=== PATIENT | female | born 1955 | race Caucasian/White ===

== ENCOUNTER 2016-02-24 | Outpatient (CLI) | payer MEDICARE, MEDICAID | END 2016-02-24 08:57 | disposition home or self-care (01) ==

== ENCOUNTER 2016-02-24 08:13 | Outpatient (CLI) | payer MEDICARE, MEDICAID | END 2016-02-24 08:14 | disposition home or self-care (01) | DX: E11.9 Type 2 diabetes mellitus without complications (principal) ==

== ENCOUNTER 2016-02-24 08:15 | Outpatient (CLI) | payer MEDICARE, MEDICAID | END 2016-02-24 08:16 | disposition home or self-care (01) | DX: E89.0 Postprocedural hypothyroidism (principal) ==

== ENCOUNTER 2016-02-24 10:21 | Outpatient (CLI) | payer MEDICARE, MEDICAID | END 2016-02-24 10:22 | disposition home or self-care (01) | DX: R05 Cough (principal); E89.0 Postprocedural hypothyroidism; E11.9 Type 2 diabetes mellitus without complications; F33.2 Major depressive disorder, recurrent severe without psychotic features; F43.10 Post-traumatic stress disorder, unspecified; F22 Delusional disorders ==

== ENCOUNTER 2016-03-02 08:11 | Outpatient (CLI) | payer MEDICARE, MEDICAID ==
[2016-03-02] MEDS ORDERED: IOPAMIDOL-300 50 ML VIAL PO ONE (08:49)
== END 2016-03-02 08:12 | disposition home or self-care (01) ==
DX: K52.9 Noninfective gastroenteritis and colitis, unspecified (principal)
CPT/HCPCS: 74176; Q9967

== ENCOUNTER 2016-04-16 01:24 | Emergency (ER) | payer MEDICARE, MEDICAID ==
[2016-04-16] MEDS ORDERED: KETOROLAC 60 MG/2 ML VIAL IM STA (01:31)
[2016-04-16] MEDS ORDERED: KETOROLAC 60 MG/2 ML VIAL ONE (01:45)
== END 2016-04-16 02:35 | disposition home or self-care (01) ==
DX: M25.511 Pain in right shoulder (principal); W19.XXXA Unspecified fall, initial encounter; X50.0XXA Overexertion from strenuous movement or load, initial encounter; I10 Essential (primary) hypertension; E78.00 Pure hypercholesterolemia, unspecified; J45.909 Unspecified asthma, uncomplicated; E11.9 Type 2 diabetes mellitus without complications; M19.90 Unspecified osteoarthritis, unspecified site

== ENCOUNTER 2016-05-06 10:31 | Outpatient (CLI) | payer MEDICARE, MEDICAID | END 2016-05-06 10:32 | disposition home or self-care (01) | DX: M25.511 Pain in right shoulder (principal); Z53.9 Procedure and treatment not carried out, unspecified reason ==

== ENCOUNTER 2016-05-27 10:24 | Outpatient (CLI) | payer MEDICARE, MEDICAID | END 2016-05-27 10:25 | disposition home or self-care (01) | DX: F33.2 Major depressive disorder, recurrent severe without psychotic features (principal); F43.10 Post-traumatic stress disorder, unspecified; F22 Delusional disorders ==

== ENCOUNTER 2016-05-30 13:11 | Outpatient (CLI) | payer MEDICARE, MEDICAID | END 2016-05-30 13:12 | disposition home or self-care (01) | DX: E11.9 Type 2 diabetes mellitus without complications (principal) ==

== ENCOUNTER 2016-07-11 10:06 | Outpatient (CLI) | payer MEDICARE, MEDICAID ==
--- NOTE | 2016-07-13 12:43 | Mammography Report ---
DIGITAL SCREENING MAMMOGRAM: 07/11/2016 CLINICAL INDICATION: A 60-year-old for screening. COMPARISON: 01/2014, 12/2012, 08/2011, 08/2010, 06/2008. TECHNIQUE: Routine CC and MLO projections were obtained of the breasts as well as bilateral laterall y exaggerated craniocaudal views. FINDINGS: Parenchymal tissue within the breasts is predominantly fatty replaced. There are no domina nt masses, suspicious microcalcifications, or secondary signs of malignancy. In comparison to the pre vious studies, there are no significant changes. IMPRESSION: NO MAMMOGRAPHIC EVIDENCE OF MALIGNANCY. NO SIGNIFICANT INTERVAL CHANGES. RECOMMENDATION: Screening mammography is recommended annually. BI-ADS category 1 - negative. STANDARD QUALIFYING STATEMENTS 1. This examination was reviewed with the aid of Computed-Aided Detection (CAD). 2. A negative or benign imaging report should not delay biopsy if clinically suspicious findings are present. Consider surgical consultation if warranted. More than 5% of cancers are not identified by i maging. 3. Dense breasts may obscure an underlying neoplasm. JOB #: [id number] EXT JOB #:[id number]
== END 2016-07-11 10:07 | disposition home or self-care (01) ==
LOC: DI.N 10:06
PROVIDERS: ATTEND Family Medicine
DX: Z12.31 Encounter for screening mammogram for malignant neoplasm of breast (principal)
CPT/HCPCS: 77067

== ENCOUNTER 2016-07-15 10:00 | Outpatient (CLI) | payer MEDICARE, MEDICAID | END 2016-07-15 10:15 | disposition home or self-care (01) | LOC: RT.N 10:00 | PROVIDERS: ATTEND Family Medicine | DX: R94.31 Abnormal electrocardiogram [ECG] [EKG] (principal) | CPT/HCPCS: 93005 ==

== ENCOUNTER 2016-08-29 10:35 | Outpatient (CLI) | payer MEDICARE, MEDICAID ==
[2016-08-29 13:41] LABS: HEMOGLOBIN A1C 0.59 g/dL
[2016-08-29 13:47] LABS: ALBUMIN/GLOBULIN RATIO 1.2 (1.0-2.2); BILIRUBIN,TOTAL 0.3 mg/dL (0.2-1.0); BUN - BLOOD UREA NITROGEN 15 mg/dL (6-20); CALCIUM 9.1 mg/dL (8.5-10.3); CARBON DIOXIDE - CO2 24 mmol/L (21-32); CHLORIDE 108 mmol/L (101-111); CHOLESTEROL 194 mg/dL; GFR - MDRD 57 (>89); GLUCOSE 135 mg/dL (70-100); HDL CHOLESTEROL 49 mg/dL; LDL/HDL RATIO 2.1 (<4.4); POTASSIUM 3.4 mmol/L (3.5-5.0); SODIUM 139 mmol/L (135-145); TOTAL PROTEIN 7.2 g/dL (6.7-8.2); TRIGLYCERIDES 199 mg/dL; VLDL CHOLESTEROL 40 mg/dL
== END 2016-08-29 10:36 | disposition home or self-care (01) ==
LOC: LAB.N 10:35
PROVIDERS: ATTEND Family Medicine
DX: E78.5 Hyperlipidemia, unspecified (principal); E11.9 Type 2 diabetes mellitus without complications
CPT/HCPCS: 36415; 80053; 80061; 83036

== ENCOUNTER 2016-09-16 10:31 | Outpatient (CLI) | payer MEDICARE, MEDICAID ==
--- NOTE | 2016-09-16 12:40 | XRAY Report ---
THREE VIEW LEFT SHOULDER: 09/16/2016 CLINICAL INDICATION: Pain. FINDINGS: Internal and external rotational views and a scapular Y view of the left shoulder demonstr ate no evidence of acute fracture or dislocation. The joint spaces are preserved. No radiopaque forei gn body is seen in the soft tissues. IMPRESSION: NORMAL LEFT SHOULDER. JOB #: [id number] EXT JOB #:[id number]
== END 2016-09-16 10:32 | disposition home or self-care (01) ==
LOC: DI.N 10:31
PROVIDERS: ATTEND Family Medicine
DX: M25.512 Pain in left shoulder (principal)

== ENCOUNTER 2016-12-21 10:16 | Outpatient (CLI) | payer MEDICARE, MEDICAID ==
[2016-12-21 13:37] LABS: CALCIUM 8.9 mg/dL (8.5-10.3); CREATININE 0.9 mg/dL (0.4-1.0); POTASSIUM 3.5 mmol/L (3.5-5.0)
[2016-12-21 14:11] LABS: HEMOGLOBIN A1C 0.66 g/dL
== END 2016-12-21 10:17 | disposition home or self-care (01) ==
LOC: LAB.N 10:16
PROVIDERS: ATTEND Family Medicine
DX: E11.9 Type 2 diabetes mellitus without complications (principal)
CPT/HCPCS: 36415; 80048; 83036

== ENCOUNTER 2017-03-12 10:21 | Emergency (ER) | payer MEDICARE, OTHER, MEDICAID ==
--- NOTE | 2017-03-12 11:36 | ED Physician Documentation ---
PD HPI UPPER EXT INJURY - Stated complaint Stated Complaint: R ARM PX - Chief complaint Chief Complaint: Ext Problem - History obtained from History obtained from: Patient - History of Present Illness Location: Right, Shoulder Type of injury: Twist Where injury occurred: Home Timing - onset: Last night Timing - duration: Hours Timing - details: Abrupt onset, Still present Improved by: Rest, Immobilization Worsened by: Moving, Palpating Associated symptoms: No: Weakness, Numbness, Tingling, Swelling Contributing factors: Prior ortho surgery Similar symptoms before: Has not had sx before Recently seen: Surgery - Additonal information Additional information: 61-year-old female who had surgery on her right shoulder in January of this year was recovering range of motion in her shoulder and had good range of motion. 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 She has not been able to get comfortable even after taking Percocet. She has severe pain with any movement of her arm and is back into her sling. 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, Tubal ligation HEENT: Tonsil/Adenoidectomy - Present Medications Home Medications: Ambulatory Orders Medication Instructions Recorded Confirmed Levothyroxine Sodium 112 mcg PO DAILY 06/06/12 03/12/17 Multivitamin [Multiple Vitamins] 1 each PO DAILY PRN 06/06/12 03/12/17 Topiramate [Topiramate] 150 mg PO BID 06/06/12 03/12/17 Fluticasone/Salmeterol 100/50 60 puffs INH DAILY 02/23/13 03/12/17 [Advair 100 Mcg/50 Mcg] Omeprazole [PriLOSEC] 40 mg PO DAILY 02/25/13 03/12/17 Oxycodone HCl/Acetaminophen 1 each PO Q4H PRN #20 tablet 11/14/13 03/12/17 [Percocet 10-325 mg Tablet] Ketorolac [Toradol] 10 mg PO PRN PRN 05/04/15 03/12/17 Mirabegron [Myrbetriq] 2 tab PO DAILY 05/04/15 03/12/17 Albuterol Sulf [Ventolin Hfa 1 - 2 puffs INH Q4HR PRN 04/16/16 03/12/17 Inhaler] Montelukast [Singulair] 10 mg PO QPM 04/16/16 03/12/17 Atorvastatin [Lipitor] 20 mg PO DAILY 03/12/17 03/12/17 Quetiapine Fumarate [Seroquel] 1 tab PO DAILY 03/12/17 03/12/17 - Allergies Allergies/Adverse Reactions: Allergies Allergy/AdvReac Type Severity Reaction Status Date / Time strawberry [[place]] Allergy Severe Rash Verified 03/12/17 10:39 clindamycin Allergy Intermediate Emesis Verified 03/12/17 10:28 sulfamethoxazole Allergy Mild Rash Verified 03/12/17 10:28 [From Septra] trimethoprim [From Septra] Allergy Mild Rash Verified 03/12/17 10:28 adhesive tape Allergy Rash Verified 03/12/17 10:28 butorphanol tartrate * Allergy Hives Verified 03/12/17 10:28 [From Stadol] codeine Allergy Hives Verified 03/12/17 10:28 doxycycline Allergy Hives Verified 03/12/17 10:28 erythromycin lactobionate * Allergy Hives Verified 03/12/17 10:28 [From Erythrocin] hydromorphone HCl * Allergy Hives Verified 03/12/17 10:28 [From Dilaudid] meperidine HCl * Allergy Hives Verified 03/12/17 10:28 [From Demerol] morphine Allergy Headache Verified 03/12/17 10:28 NSAIDS (Non-Steroidal Allergy Hives Verified 03/12/17 10:28 Anti-Inflamma Penicillins Allergy Hives Verified 03/12/17 10:28 pregabalin [From Lyrica] Allergy Hives Verified 03/12/17 10:28 simvastatin [From Zocor] Allergy Hives Verified 03/12/17 10:28 sumatriptan [From Imitrex] Allergy Hives Verified 03/12/17 10:28 sumatriptan succinate * Allergy Hives Verified 03/12/17 10:28 [From Imitrex] vilazodone HCl * Allergy Unknown Verified 03/12/17 10:28 [From Viibryd] vortioxetine hydrobromide * Allergy Anxiety Verified 03/12/17 10:28 [From Trintellix] [place] Allergy Severe Respiratory Uncoded 03/12/17 10:39 - Social History Does the pt smoke?: No Smoking Status: Never smoker Does the pt drink ETOH?: No Does the pt have substance abuse?: No - Immunizations Immunizations are current?: Yes - POLST Patient has POLST: No PD ED PE NORMAL - Vitals Vital signs reviewed: Yes (normal ) - General General: Alert and oriented X 3, Well developed/nourished - HEENT HEENT: Atraumatic, PERRL - Neck Neck: Supple, no meningeal sign, No bony TTP - Respiratory Respiratory: No respiratory distress - Derm Derm: Normal color, Warm and dry, No rash - Extremities Extremities: No deformity, No edema, Other (There is tenderness to the right shoulder over the deltoid and pain with passive range of motion. Range of motion is not restricted. 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 No evidence for acute fracture or dislocation of the right shoulder. 2. Unchanged widening of the AC interval could represent postoperative change 3. mild osteo-arthritis of the glenohumeral joint.), EMP read indepedently, See rad report PD MEDICAL DECISION MAKING - ED course Complexity details: reviewed results, re-evaluated patient, considered differential, d/w patient ED course: 61-year-old female postoperatively recovering from a shoulder procedure has strained her shoulder has severe pain not taking care of by her usual Percocet. We have added in fentanyl IM here for acute pain control in the emergency department and she will follow up with Dr. Solorzano. Departure - Departure Disposition: 01 Home, Self Care Clinical Impression: Sprain of right shoulder Qualifiers: Encounter type: initial encounter Shoulder sprain type: unspecified sprain Qualified Code(s): S43.401A - Unspecified sprain of right shoulder joint, initial encounter Condition: Stable Instructions: ED Sprain Shoulder Follow-Up: Mathew Oshea MD [Primary Care Provider] - Jose A Solorzano MD [Physician No Access] -
--- NOTE | 2017-03-12 12:23 | XRAY Report ---
EXAM: RIGHT SHOULDER RADIOGRAPHY EXAM DATE: 03/12/2017 12:05 PM. CLINICAL HISTORY: Post op pain with movement. COMPARISON: 04/16/2016. TECHNIQUE: 3 views. FINDINGS: Bones: No acute fracture lines are seen. No focal abnormal osseous lesions. Joints: Normal alignment of the glenohumeral joint. Mild joint space narrowing with osteophytes seen. Widening of the AC interval could represent postoperative change. Soft tissues: The visualized hemithorax is unremarkable. No soft tissue swelling. IMPRESSION: 1. No evidence for acute fracture or dislocation of the right shoulder. 2. Unchanged widening of the AC interval could represent postoperative change. 3. Mild degenerative arthritis of the glenohumeral joint. [facility] Referring Provider Line: [phone] SITE ID: [id number]
[2017-03-12] MEDS ORDERED: fentaNYL 100 MCG/2 ML VIAL IVP STA (12:55)
[2017-03-12] MEDS ORDERED: fentaNYL 100 MCG/2 ML VIAL IM STA (13:03)
[2017-03-12 13:24] VITALS: BP 119/76
== END 2017-03-12 13:23 | disposition home or self-care (01) ==
LOC: ED 10:21
DX: S43.401A Unspecified sprain of right shoulder joint, initial encounter (principal); X50.9XXA Other and unspecified overexertion or strenuous movements or postures, initial encounter; Y92.009 Unspecified place in unspecified non-institutional (private) residence as the place of occurrence of the external cause; I10 Essential (primary) hypertension; E78.00 Pure hypercholesterolemia, unspecified; E11.9 Type 2 diabetes mellitus without complications; Z96.659 Presence of unspecified artificial knee joint
CPT/HCPCS: 96372; 99283

== ENCOUNTER 2017-03-29 16:01 | Outpatient (CLI) | payer MEDICARE, MEDICAID ==
[2017-03-29 13:17] LABS: CALCIUM 8.9 mg/dL (8.5-10.3); CREATININE 0.8 mg/dL (0.4-1.0)
[2017-03-29 13:26] LABS: THYROID STIMULATING HORMONE 0.36 uIU/mL (0.34-5.60)
[2017-03-29 13:28] LABS: FREE T4 (FREE THYROXINE) 0.75 ng/dL (0.58-1.64)
[2017-03-29 14:24] LABS: HB2 TOTAL 14.5 g/dL; HEMOGLOBIN A1C 0.55 g/dL; HEMOGLOBIN A1C % 5.6 % (4.6-6.2)
== END 2017-03-29 16:02 | disposition home or self-care (01) ==
LOC: LAB.N 16:01
PROVIDERS: ATTEND Family Medicine
DX: E11.9 Type 2 diabetes mellitus without complications (principal); E03.9 Hypothyroidism, unspecified
CPT/HCPCS: 36415; 80048; 83036; 84439; 84443; 84481

== ENCOUNTER 2017-04-09 01:06 | Emergency (ER) | payer MEDICARE, OTHER, MEDICAID ==
[2017-04-09] MEDS ORDERED: METOCLOPRAMIDE 10 MG/2 ML VIAL IVP STA (01:21)
[2017-04-09] MEDS ORDERED: SODIUM CHLORIDE 0.9% 1,000 ML IV ONE (01:21)
[2017-04-09] MEDS ORDERED: diphenhydrAMINE INJ 50 MG/ML VIAL IVP STA (01:21)
[2017-04-09] MEDS ORDERED: ACETAMINOPHEN 500 MG TABLET PO STA (01:22)
[2017-04-09] MEDS ORDERED: KETOROLAC 60 MG/2 ML VIAL IVP STA (01:29)
--- NOTE | 2017-04-09 01:30 | ED Physician Documentation ---
PD HPI HEADACHE - Stated complaint Stated Complaint: HEADACHE - Chief complaint Chief Complaint: Neuro - History obtained from History obtained from: Patient - History of Present Illness Timing - onset: How many days ago (6) Timing - details: Gradual onset, Still present Worst headache ever?: Worst headache ever? (no) Location: Front, Global Quality: Aching Associated symptoms: No: Fever, Stiff neck, Nausea, Vomiting, Weakness, Numbness , Syncope Improved by: Rest, Dark room, Quiet Similar symptoms before: Work up / diagnostics, Treatment Recently seen: Not recently seen - Additional information Additional information: patient is a 61 year old female with a history of migraines who is presenting to the emergency department for headache. Patient states that it has been going on for about the last 6 days. Patient states that it started off slowly and has persisted. Patient states that she has been taking her daily triptan but she still is having pain. Review of Systems Constitutional: denies: Fever, Chills Eyes: reports: Photophobia, Other (floaters) Ears: denies: Ear pain, Drainage/discharge Nose: denies: Congestion Throat: reports: Reviewed and negative Cardiac: denies: Chest pain / pressure, Palpitations Respiratory: denies: Dyspnea, Cough, Wheezing GI: reports: Nausea. denies: Vomiting : reports: Reviewed and negative Skin: denies: Rash Neurologic: reports: Headache. 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, Tubal ligation HEENT: Tonsil/Adenoidectomy - Present Medications Home Medications: Ambulatory Orders Medication Instructions Recorded Confirmed Levothyroxine Sodium 112 mcg PO DAILY 06/06/12 03/12/17 Multivitamin [Multiple Vitamins] 1 each PO DAILY PRN 06/06/12 03/12/17 Topiramate [Topiramate] 150 mg PO BID 06/06/12 03/12/17 Fluticasone/Salmeterol 100/50 60 puffs INH DAILY 02/23/13 03/12/17 [Advair 100 Mcg/50 Mcg] Omeprazole [PriLOSEC] 40 mg PO DAILY 02/25/13 03/12/17 Oxycodone HCl/Acetaminophen 1 each PO Q4H PRN #20 tablet 11/14/13 03/12/17 [Percocet 10-325 mg Tablet] Ketorolac [Toradol] 10 mg PO PRN PRN 05/04/15 03/12/17 Mirabegron [Myrbetriq] 2 tab PO DAILY 05/04/15 03/12/17 Albuterol Sulf [Ventolin Hfa 1 - 2 puffs INH Q4HR PRN 04/16/16 03/12/17 Inhaler] Montelukast [Singulair] 10 mg PO QPM 04/16/16 03/12/17 Atorvastatin [Lipitor] 20 mg PO DAILY 03/12/17 03/12/17 Quetiapine Fumarate [Seroquel] 1 tab PO DAILY 03/12/17 03/12/17 - Allergies Allergies/Adverse Reactions: Allergies Allergy/AdvReac Type Severity Reaction Status Date / Time strawberry [[place]] Allergy Severe Rash Verified 04/09/17 01:24 clindamycin Allergy Intermediate Emesis Verified 04/09/17 01:24 sulfamethoxazole Allergy Mild Rash Verified 04/09/17 01:24 [From Septra] trimethoprim [From Septra] Allergy Mild Rash Verified 04/09/17 01:24 adhesive tape Allergy Rash Verified 04/09/17 01:24 butorphanol tartrate * Allergy Hives Verified 04/09/17 01:24 [From Stadol] codeine Allergy Hives Verified 04/09/17 01:24 doxycycline Allergy Hives Verified 04/09/17 01:24 erythromycin lactobionate * Allergy Hives Verified 04/09/17 01:24 [From Erythrocin] hydromorphone HCl * Allergy Hives Verified 04/09/17 01:24 [From Dilaudid] meperidine HCl * Allergy Hives Verified 04/09/17 01:24 [From Demerol] morphine Allergy Headache Verified 04/09/17 01:24 NSAIDS (Non-Steroidal Allergy Hives Verified 04/09/17 01:24 Anti-Inflamma Penicillins Allergy Hives Verified 04/09/17 01:24 pregabalin [From Lyrica] Allergy Hives Verified 03/04/18 01:24 simvastatin [From Zocor] Allergy Hives Verified 04/09/17 01:24 sumatriptan [From Imitrex] Allergy Hives Verified 04/09/17 01:24 sumatriptan succinate * Allergy Hives Verified 04/09/17 01:24 [From Imitrex] vilazodone HCl * Allergy Unknown Verified 04/09/17 01:24 [From Viibryd] vortioxetine hydrobromide * Allergy Anxiety Verified 04/09/17 01:24 [From Trintellix] [place] Allergy Severe Respiratory Uncoded 04/09/17 01:24 - Social History Does the pt smoke?: No Smoking Status: Never smoker Does the pt drink ETOH?: No Does the pt have substance abuse?: No - Immunizations Immunizations are current?: Yes - POLST Patient has POLST: No PD ED PE NORMAL - Vitals Vital signs reviewed: Yes - General General: Alert and oriented X 3, No acute distress, Well developed/nourished - HEENT HEENT: Atraumatic, PERRL, Moist mucous membranes - Neck Neck: Supple, no meningeal sign, No JVD - Cardiac Cardiac: RRR, No murmur - Respiratory Respiratory: No respiratory distress - Abdomen Abdomen: Soft - Derm Derm: Normal color, No rash - Extremities Extremities: No deformity, Normal ROM s pain - Neuro Neuro: Alert and oriented X 3, 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 patient was well appearing in no distress. Patient was treated with iv fluids, toradol, reglan, benadryl and tylenol. when patient's fluids were finished she stated that her pain had gone from a 10 to a 5 and was ready to go home. patient had no neurological deficits or signs of infection. Patient was stable for discharge with outpatient follow up. Departure - Departure Disposition: , Self Care Clinical Impression: Migraine Condition: Good Instructions: ED Headache Migraine Follow-Up: Mathew Oshea MD [Primary Care Provider] - Within 3 Days Comments: Your symptoms today are being caused by a migraine headache. It is important to get plenty of sleep and plenty of rest. You should follow up with your pmd for possible breakthrough medications. You may return to the emergency department at any time for new, worsening or uncontrollable symptoms.
[2017-04-09 02:37] VITALS: BP 112/65
== END 2017-04-09 02:50 | disposition home or self-care (01) ==
LOC: ED 01:06
DX: G43.909 Migraine, unspecified, not intractable, without status migrainosus (principal); I10 Essential (primary) hypertension; E78.00 Pure hypercholesterolemia, unspecified; E11.9 Type 2 diabetes mellitus without complications; Z96.659 Presence of unspecified artificial knee joint
CPT/HCPCS: 96361; 96374; 96375; 99283; 99284; A9270; J1200; J2765

== ENCOUNTER 2017-06-09 21:17 | Emergency (ER) | payer MEDICARE, OTHER, MEDICAID ==
[2017-06-09 21:28] VITALS: BP 139/80
[2017-06-09] MEDS ORDERED: BACITRACIN OINT TOP STA (22:11)
--- NOTE | 2017-06-09 22:54 | ED Physician Documentation ---
PD HPI SKIN - Stated complaint Stated Complaint: INCISION SWELLING/RED - Chief complaint Chief Complaint: Wound - History obtained from History obtained from: Patient - History of Present Illness Timing - onset: Yesterday Timing - details: Gradual onset Quality / character: Itchy, Discolored - Additional information Additional information: patient had pain stimulator placed 06/05 to right low back. she says she is "allergic to adhesive" (per patient), and has had redness and itching to the site past 1-2 days. She also feels both eyes are red and itchy and that her left ankle itches. 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 HEENT: Tonsil/Adenoidectomy - Present Medications Home Medications: Ambulatory Orders Medication Instructions Recorded Confirmed Levothyroxine Sodium 112 mcg PO DAILY 06/06/12 03/12/17 Multivitamin [Multiple Vitamins] 1 each PO DAILY PRN 06/06/12 03/12/17 Topiramate [Topiramate] 150 mg PO BID 06/06/12 03/12/17 Fluticasone/Salmeterol 100/50 60 puffs INH DAILY 02/23/13 03/12/17 [Advair 100 Mcg/50 Mcg] Omeprazole [PriLOSEC] 40 mg PO DAILY 02/25/13 03/12/17 Oxycodone HCl/Acetaminophen 1 each PO Q4H PRN #20 tablet 11/14/13 03/12/17 [Percocet 10-325 mg Tablet] Ketorolac [Toradol] 10 mg PO PRN PRN 05/04/15 03/12/17 Mirabegron [Myrbetriq] 2 tab PO DAILY 05/04/15 03/12/17 Albuterol Sulf [Ventolin Hfa 1 - 2 puffs INH Q4HR PRN 04/16/16 03/12/17 Inhaler] Montelukast [Singulair] 10 mg PO QPM 04/16/16 03/12/17 Atorvastatin [Lipitor] 20 mg PO DAILY 03/12/17 03/12/17 Quetiapine Fumarate [Seroquel] 1 tab PO DAILY 03/12/17 03/12/17 - Allergies Allergies/Adverse Reactions: Allergies Allergy/AdvReac Type Severity Reaction Status Date / Time strawberry [[place]] Allergy Severe Rash Verified 04/09/17 01:24 clindamycin Allergy Intermediate Emesis Verified 04/09/17 01:24 sulfamethoxazole Allergy Mild Rash Verified 04/09/17 01:24 [From Septra] trimethoprim [From Septra] Allergy Mild Rash Verified 04/09/17 01:24 adhesive tape Allergy Rash Verified 04/09/17 01:24 butorphanol tartrate * Allergy Hives Verified 04/09/17 01:24 [From Stadol] codeine Allergy Hives Verified 04/09/17 01:24 doxycycline Allergy Hives Verified 04/09/17 01:24 erythromycin lactobionate * Allergy Hives Verified 04/09/17 01:24 [From Erythrocin] hydromorphone HCl * Allergy Hives Verified 04/09/17 01:24 [From Dilaudid] meperidine HCl * Allergy Hives Verified 04/09/17 01:24 [From Demerol] morphine Allergy Headache Verified 04/09/17 01:24 NSAIDS (Non-Steroidal Allergy Hives Verified 04/09/17 01:24 Anti-Inflamma Penicillins Allergy Hives Verified 04/09/17 01:24 pregabalin [From Lyrica] Allergy Hives Verified 04/09/17 01:24 simvastatin [From Zocor] Allergy Hives Verified 04/09/17 01:24 sumatriptan [From Imitrex] Allergy Hives Verified 04/09/17 01:24 sumatriptan succinate * Allergy Hives Verified 04/09/17 01:24 [From Imitrex] vilazodone HCl * Allergy Unknown Verified 04/09/17 01:24 [From Viibryd] vortioxetine hydrobromide * Allergy Anxiety Verified 04/09/17 01:24 [From Trintellix] [place] Allergy Severe Respiratory Uncoded 04/09/17 01:24 - Social History Does the pt smoke?: No Smoking Status: Never smoker Does the pt drink ETOH?: No Does the pt have substance abuse?: No - Immunizations Immunizations are current?: Yes - POLST Patient has POLST: No PD ED PE NORMAL - Vitals Vital signs reviewed: Yes - General General: Alert and oriented X 3, No acute distress, Well developed/nourished - HEENT HEENT: PERRL, EOMI, Other (unremarkable eye exam (conjunctiva are clear bilaterally; no discharge or excessive tearing noted)) - Derm Derm: Other (right paralumbar region: two incision sites that are C/D/I with dov in place. There is a tegaderm-type dressing in place which I take down. There is no swelling nor discharge nor fluctuance associated with these incision sites. There is surrouding erythema and bruising. the erythema conforms to the exact area covered by the tegaderm (rectangle-shaped with same corners), s/o contact dermatitis. The bruising is c/w recent procedure. ) - Extremities Extremities: Other (no visible or palpable abnormality of left ankle) Results - Vitals Vitals: Vital Signs - 24 hr 06/09/17 21:24 Temperature 35.9 C L Heart Rate 96 Respiratory 16 Rate Blood Pressure 139/80 H O2 Saturation 95 Oxygen O2 Source Room air PD MEDICAL DECISION MAKING - ED course Complexity details: considered differential, d/w patient ED course: Patient may be having irritation from the tegaderm / contact dermatitis. This was taken down and replaced with gauze and paper tape with instructions on how to change this daily. I also instructed her to take benadryl as directed per the label PRN itching (including ankle, eyes, and surgical site). Departure - Departure Disposition: 01 Home, Self Care Clinical Impression: Contact dermatitis Qualifiers: Contact dermatitis type: irritant Contact dermatitis trigger: other chemical product Qualified Code(s): L24.5 - Irritant contact dermatitis due to other chemical products Condition: Good Instructions: ED Dermatitis Contact Follow-Up: Mathew Oshea MD [Primary Care Provider] - Comments: It appears you have a local reaction to the adhesive placed around your incision sites. This adhesive was removed tonight and replaced with some gauze and paper tape. You should contact the office where the procedure was performed and ask about how to further dress the area. For now, I recommend you clean the area very gently once or twice per day with soap and water. Do not let the stream of water from a shower to hit directly into the wound but rather let it run over it gently. Dry the area thoroughly after finished bathing (this sometimes is most safely accomplished with a hair rooting machine operator). Then apply a thin layer of antibiotic ointment (such as bacitracin) and replace the dressing using gauze and paper tape. Discharge Date/Time: 06/09/17 22:24
== END 2017-06-09 22:24 | disposition home or self-care (01) ==
LOC: ED 21:17
DX: L24.5 Irritant contact dermatitis due to other chemical products (principal); I10 Essential (primary) hypertension; E11.9 Type 2 diabetes mellitus without complications; Z96.89 Presence of other specified functional implants
CPT/HCPCS: 99282; 99283; A9270

== ENCOUNTER 2017-08-03 08:55 | Outpatient (CLI) | payer MEDICARE, OTHER, MEDICAID ==
--- NOTE | 2017-08-03 09:24 | XRAY Report ---
Procedure Date: 08/03/2017 Accession Number: [id number] / [id number] Procedure: XR - Knee 3 View LT CPT Code: FULL RESULT: EXAM: Knee 3 View LT DATE: 08/03/2017 9:11 AM CLINICAL HISTORY: PAIN IN LEFT KNEE COMPARISON: 02/24/2015 TECHNIQUE: 3 views. FINDINGS: Bones: Normal. No fractures or bone lesions. Joints: Stable mild osteoarthritis. No effusion. Soft Tissues: Normal. No soft tissue swelling. IMPRESSION: Mild osteoarthritis, stable. [facility]
== END 2017-08-03 08:56 | disposition home or self-care (01) ==
LOC: DI 08:55
PROVIDERS: ATTEND Anesthesiology Pain Medicine
DX: M17.12 Unilateral primary osteoarthritis, left knee (principal)

== ENCOUNTER 2017-08-08 13:50 | Outpatient (CLI) | payer MEDICARE, OTHER, MEDICAID | END 2017-08-08 13:51 | disposition home or self-care (01) | LOC: LAB.N 13:50 | PROVIDERS: ATTEND Specialist | DX: R89.2 Abnormal level of other drugs, medicaments and biological substances in specimens from other organs, systems and tissues (principal) | CPT/HCPCS: 36415; 82374 ==

== ENCOUNTER 2017-08-31 09:57 | Outpatient (CLI) | payer MEDICARE, OTHER, MEDICAID ==
--- NOTE | 2017-08-31 11:27 | XRAY Report ---
Procedure Date: 08/31/2017 Accession Number: [id number] / [id number] Procedure: XR - Shoulder 2 View RT CPT Code: FULL RESULT: EXAM: Shoulder 2 View RT DATE: 08/31/2017 10:23 AM CLINICAL HISTORY: RIB PAIN,RIGHT SIDED, RT SHOULDER PAIN COMPARISON: 03/12/2017. TECHNIQUE: 3 views. FINDINGS: Bones: Normal. No fracture or bone lesion. Joints: Mild degenerative changes of the glenohumeral joint. Widening of the acromioclavicular joint and coracoclavicular interval to 1.5 cm. Findings are possibly postoperative. Soft tissues: The visualized hemithorax is unremarkable. No soft tissue swelling. IMPRESSION: Persistent widening of the coracoclavicular interval and acromioclavicular joint. No acute fracture or dislocation. [facility]
--- NOTE | 2017-08-31 11:41 | XRAY Report ---
Procedure Date: 08/31/2017 Accession Number: [id number] / [id number] Procedure: XR - Ribs 2 View RT CPT Code: FULL RESULT: EXAM: Ribs 2 View RT DATE: 08/31/2017 10:23 AM CLINICAL HISTORY: RIB PAIN,RIGHT SIDED, RT SHOULDER PAIN COMPARISON: Chest radiograph 02/24/2016. TECHNIQUE: 2 views of the ribs. FINDINGS: Bones: Normal. No fracture or bone lesion. Lungs: No focal opacities. No pneumothorax or pleural effusions. Mediastinum: Heart and mediastinal contours are unremarkable. Other: A neurostimulator is noted as well as postsurgical changes of cervical spinal fusion. IMPRESSION: No fracture is detected. [facility]
== END 2017-08-31 09:58 | disposition home or self-care (01) ==
LOC: DI 09:57
PROVIDERS: ATTEND Family Medicine
DX: R07.81 Pleurodynia (principal); M25.511 Pain in right shoulder

== ENCOUNTER 2017-10-23 11:27 | Outpatient (CLI) | payer MEDICARE, OTHER, MEDICAID ==
[2017-10-23 19:13] LABS: BASOPHILS # (AUTO) 0.1 10^3/uL (0.0-0.1); BASOPHILS % (AUTO) 1.1 %; EOSINOPHILS # (AUTO) 0.2 10^3/uL (0.0-0.7); EOSINOPHILS % (AUTO) 3.3 %; HGB - HEMOGLOBIN 13.7 g/dL (12.0-16.0); LYMPHOCYTES # (AUTO) 2.1 10^3/uL (1.5-3.5); LYMPHOCYTES % (AUTO) 34.2 %; MEAN CORPUSCULAR HEMOGLOBIN 31.1 pg (27.0-31.0); MEAN CORPUSCULAR HGB CONC 33.6 g/dL (32.0-36.0); MEAN CORPUSCULAR VOLUME 92.6 fL (81.0-99.0); MEAN PLATELET VOLUME 8.9 fL (7.9-10.8); MONOCYTES # (AUTO) 0.3 10^3/uL (0.0-1.0); MONOCYTES % (AUTO) 5.7 %; NEUTROPHILS # (AUTO) 3.4 10^3/uL (1.5-6.6); NEUTROPHILS % (AUTO) 55.7 %; PLT - PLATELET COUNT 195 10^3/uL (130-450); RED BLOOD COUNT 4.41 10^6/uL (4.20-5.40); RED CELL DISTRIBUTION WIDTH 14.1 % (12.0-15.0); WHITE BLOOD COUNT 6.1 x10^3/uL (4.8-10.8)
[2017-10-23 19:54] LABS: ALBUMIN 3.8 g/dL (3.2-5.5); ALBUMIN/GLOBULIN RATIO 1.2 (1.0-2.2); ALKALINE PHOSPHATASE 92 IU/L (42-121); ALT ALANINE AMINOTRANSFERASE 14 IU/L (10-60); AST ASPARTATE AMINOTRANSFERASE 20 IU/L (10-42); BILIRUBIN,TOTAL 0.5 mg/dL (0.2-1.0); BUN - BLOOD UREA NITROGEN 16 mg/dL (6-20); CALCIUM 8.7 mg/dL (8.5-10.3); CARBON DIOXIDE - CO2 24 mmol/L (21-32); CHLORIDE 108 mmol/L (101-111); CHOL/HDL RATIO 3.9 (<4.4); CHOLESTEROL 197 mg/dL; CREATININE 0.9 mg/dL (0.4-1.0); GFR - MDRD 64 (>89); GLUCOSE 120 mg/dL (70-100); HDL CHOLESTEROL 50 mg/dL; LDL CHOLESTEROL,CALCULATED 100 mg/dL; SODIUM 139 mmol/L (135-145); TOTAL PROTEIN 6.9 g/dL (6.7-8.2); VLDL CHOLESTEROL 47 mg/dL
[2017-10-23 20:32] LABS: HB2 TOTAL 13.6 g/dL; HEMOGLOBIN A1C 0.52 g/dL; HEMOGLOBIN A1C % 5.7 % (4.6-6.2)
== END 2017-10-23 11:28 | disposition home or self-care (01) ==
LOC: LAB.N 11:27
PROVIDERS: ATTEND Family Medicine
DX: E11.9 Type 2 diabetes mellitus without complications (principal); E03.9 Hypothyroidism, unspecified; E78.5 Hyperlipidemia, unspecified
CPT/HCPCS: 36415; 80053; 80061; 83036; 83721; 84443; 85025

== ENCOUNTER 2017-11-30 08:23 | Outpatient (CLI) | payer MEDICARE, OTHER, MEDICAID ==
--- NOTE | 2017-12-01 12:43 | Mammography Report ---
Reason: MAMMOGRAPHIC SCREENING FOR BREAST CANCER Procedure Date: 11/30/2017 Accession Number: [id number] / [id number] Procedure: MGN - Screening Mammo Dig Bilat CPT Code: FULL RESULT: EXAM: Screening Mammo Dig Bilat DATE: 11/30/2017 8:46 AM CLINICAL HISTORY: Routine screening TECHNIQUE: Bilateral CC and MLO views were obtained. COMPARISON: 07/11/2016, 01/29/2014, 12/17/2012, 09/02/2011 and 08/25/2010 FINDINGS: There are scattered fibroglandular densities. There is no significant interval change. No suspicious masses, clustered microcalcifications, or regions of architectural distortion are identified. The left subareolar nodular density is unchanged. IMPRESSION: Benign findings RECOMMENDATION: Routine annual screening unless otherwise clinically indicated. BIRADS CATEGORY 2: Benign findings STANDARD QUALIFYING STATEMENTS: 1. This examination was reviewed with the aid of Computer-Aided Detection (CAD). 2. A negative or benign imaging report should not delay biopsy if clinically suspicious findings are present. Consider surgical consultation if warrented. More than 5% of cancers are not identified by imaging. 3. Dense breasts may obscure an underlying neoplasm.
== END 2017-11-30 08:24 | disposition home or self-care (01) ==
LOC: DI.N 08:23
PROVIDERS: ATTEND Family Medicine
DX: Z12.31 Encounter for screening mammogram for malignant neoplasm of breast (principal)
CPT/HCPCS: 77067

== ENCOUNTER 2017-12-01 06:46 | Emergency (ER) | payer MEDICARE, OTHER, MEDICAID ==
--- NOTE | 2017-12-01 07:26 | ED Physician Documentation ---
PD HPI UPPER EXT INJURY - Stated complaint Stated Complaint: RT ARM PX/HARD TO MOVE - Chief complaint Chief Complaint: Ext Problem - History obtained from History obtained from: Patient - History of Present Illness Location: Right, Shoulder Type of injury: Twist Where injury occurred: Other (during mammogram) Timing - onset: Yesterday Worsened by: Moving, Palpating Similar symptoms before: Diagnosis (right shoulder strain) - Treatment prior to arrival Treatment prior to arrival: Percocet without relief. - Additonal information Additional information: The patient is a 62-year-old female who presents with right shoulder pain. She has been having pain in her right shoulder for the past 2 weeks, but it became worse since yesterday after she underwent a mammogram in which her right arm was elevated. She hears a "popping sound" when moving her right shoulder. She is right-hand dominant. She is status post arthroscopic surgery for rotator cuff repair of her right shoulder twice in the past. She has a history of chronic back pain for which she is prescribed Percocet through the [facility] pain clinic. Percocet has not been relieving the pain in her right shoulder. Review of Systems Constitutional: denies: Fever Cardiac: denies: Chest pain / pressure Respiratory: denies: Dyspnea, Cough GI: denies: Abdominal Pain, Nausea, Vomiting Skin: denies: Rash Musculoskeletal: reports: Extremity pain (Right shoulder and upper arm.). 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 HEENT: Tonsil/Adenoidectomy - Present Medications Home Medications: Ambulatory Orders Medication Instructions Recorded Confirmed Levothyroxine Sodium 112 mcg PO DAILY 06/06/12 03/12/17 Multivitamin [Multiple Vitamins] 1 each PO DAILY PRN 06/06/12 03/12/17 Topiramate 150 mg PO BID 06/06/12 03/12/17 Fluticasone/Salmeterol 100/50 60 puffs INH DAILY 02/23/13 03/12/17 [Advair 100 Mcg/50 Mcg] Omeprazole [PriLOSEC] 40 mg PO DAILY 02/25/13 03/12/17 Oxycodone HCl/Acetaminophen 1 each PO Q4H PRN #20 tablet 11/14/13 03/12/17 [Percocet 10-325 mg Tablet] Ketorolac [Toradol] 10 mg PO PRN PRN 05/04/15 03/12/17 Mirabegron [Myrbetriq] 2 tab PO DAILY 05/04/15 03/12/17 Albuterol Sulf [Ventolin Hfa 1 - 2 puffs INH Q4HR PRN 04/16/16 03/12/17 Inhaler] Montelukast [Singulair] 10 mg PO QPM 04/16/16 03/12/17 Atorvastatin [Lipitor] 20 mg PO DAILY 03/12/17 03/12/17 Quetiapine Fumarate [Seroquel] 1 tab PO DAILY 03/12/17 03/12/17 - Allergies Allergies/Adverse Reactions: Allergies Allergy/AdvReac Type Severity Reaction Status Date / Time strawberry [[place]] Allergy Severe Rash Verified 04/09/17 01:24 clindamycin Allergy Intermediate Emesis Verified 04/09/17 01:24 sulfamethoxazole Allergy Mild Rash Verified 04/09/17 01:24 [From Septra] trimethoprim [From Septra] Allergy Mild Rash Verified 04/09/17 01:24 adhesive tape Allergy Rash Verified 04/09/17 01:24 butorphanol tartrate * Allergy Hives Verified 04/09/17 01:24 [From Stadol] codeine Allergy Hives Verified 04/09/17 01:24 doxycycline Allergy Hives Verified 04/09/17 01:24 erythromycin lactobionate * Allergy Hives Verified 04/09/17 01:24 [From Erythrocin] hydromorphone HCl * Allergy Hives Verified 04/09/17 01:24 [From Dilaudid] meperidine HCl * Allergy Hives Verified 04/09/17 01:24 [From Demerol] NSAIDS (Non-Steroidal Allergy Hives Verified 04/09/17 01:24 Anti-Inflamma Penicillins Allergy Hives Verified 04/09/17 01:24 pregabalin [From Lyrica] Allergy Hives Verified 04/09/17 01:24 simvastatin [From Zocor] Allergy Hives Verified 04/09/17 01:24 sumatriptan [From Imitrex] Allergy Hives Verified 04/09/17 01:24 sumatriptan succinate * Allergy Hives Verified 04/09/17 01:24 [From Imitrex] vilazodone HCl * Allergy Unknown Verified 04/09/17 01:24 [From Viibryd] vortioxetine hydrobromide * Allergy Anxiety Verified 04/09/17 01:24 [From Trintellix] morphine AdvReac Headache Verified 12/01/17 06:58 [place] Allergy Severe Respiratory Uncoded 04/09/17 01:24 - Social History Does the pt smoke?: No Smoking Status: Never smoker Does the pt drink ETOH?: No Does the pt have substance abuse?: No - Immunizations Immunizations are current?: Yes - POLST Patient has POLST: No PD ED PE NORMAL - Vitals Vital signs reviewed: Yes (Borderline systolic hypertension.) - General General: Alert and oriented X 3, Other (Obese.) - HEENT HEENT: Atraumatic - Neck Neck: No bony TTP - Cardiac Cardiac: RRR - Respiratory Respiratory: No respiratory distress, Clear bilaterally - Derm Derm: No rash - Extremities Extremities: No deformity, Other (There is tenderness to palpation over the anterior deltoid region of the shoulder. There is no warmth, erythema, or ecchymosis. She has full range of motion, but elevation exacerbates the discomfort. Distal neurovascular is intact.) - Neuro Neuro: Alert and oriented X 3, No motor deficit, No sensory deficit, Normal speech Results - Vitals Vitals: Vital Signs - 24 hr 12/01/17 12/01/17 06:51 08:00 Temperature 36.6 C Heart Rate 110 H 94 Respiratory 16 14 Rate Blood Pressure 131/81 H 125/84 H O2 Saturation 98 98 Oxygen O2 Source Room air PD MEDICAL DECISION MAKING - ED course Complexity details: reviewed old records, re-evaluated patient, considered differential, d/w patient ED course: The patient's presentation is most consistent with strain of a right shoulder that has chronic rotator cuff issues. I do not think x-rays would be of clinical benefit. Treatment in the emergency department included application of a right arm sling. Initially lidocaine patch was ordered, but then the patient reminded me that she has allergy to adhesive. Fentanyl 75 mcg was administered IM. I discussed with her symptomatic treatment, outpatient follow-up, as well as potentially worrisome signs or symptoms that should prompt reevaluation in the emergency department. Departure - Departure Disposition: 01 Home, Self Care Clinical Impression: Sprain of right shoulder Qualifiers: Encounter type: initial encounter Shoulder sprain type: rotator cuff capsule Qualified Code(s): S43.421A - Sprain of right rotator cuff capsule, initial encounter Condition: Stable Instructions: ED Sprain Shoulder Follow-Up: Mathew Oshea MD [Primary Care Provider] - Comments: Wear the arm sling if it provides comfort. You can continue to use Percocet as previously prescribed for your pain clinic. Follow-up with your primary physician within 2 weeks. Call to schedule an appo intment. Return to the emergency department if you develop increasing pain, or otherwise worsening symptoms. Discharge Date/Time: 12/01/17 08:05
[2017-12-01] MEDS: LIDOCAINE PATCH 5% TOP STA ×2 (07:41→07:44)
[2017-12-01] MEDS ORDERED: fentaNYL 100 MCG/2 ML VIAL IM STA (07:44)
[2017-12-01 08:37] VITALS: BP 125/84
== END 2017-12-01 08:05 | disposition home or self-care (01) ==
LOC: ED 06:46
DX: S43.421A Sprain of right rotator cuff capsule, initial encounter (principal); I10 Essential (primary) hypertension; E11.9 Type 2 diabetes mellitus without complications; X58.XXXA Exposure to other specified factors, initial encounter
CPT/HCPCS: 96372; 99283; A9270

== ENCOUNTER 2017-12-29 13:33 | Outpatient (CLI) | payer MEDICARE, OTHER, MEDICAID | END 2017-12-29 23:59 | disposition home or self-care (01) | LOC: RT.N 13:33 | PROVIDERS: ATTEND Family Medicine | DX: Z02.9 Encounter for administrative examinations, unspecified (principal); R55 Syncope and collapse; I45.81 Long QT syndrome | CPT/HCPCS: 93005 ==

== ENCOUNTER 2018-01-06 11:52 | Outpatient (CLI) | payer MEDICARE, OTHER, MEDICAID | END 2018-01-06 11:53 | disposition home or self-care (01) | LOC: RT 11:52 | PROVIDERS: ATTEND Family Medicine | DX: R55 Syncope and collapse (principal); Z02.9 Encounter for administrative examinations, unspecified; I45.81 Long QT syndrome | CPT/HCPCS: 93005 ==

== ENCOUNTER 2018-06-05 08:00 | Outpatient (CLI) | payer MEDICARE, OTHER, MEDICAID ==
[2018-06-05 19:51] LABS: HB2 TOTAL 15.2 g/dL; HEMOGLOBIN A1C 0.56 g/dL; HEMOGLOBIN A1C % 5.5 % (4.6-6.2)
[2018-06-05 20:03] LABS: ALBUMIN 3.9 g/dL (3.2-5.5); ALBUMIN/GLOBULIN RATIO 1.2 (1.0-2.2); ALKALINE PHOSPHATASE 102 IU/L (42-121); ALT ALANINE AMINOTRANSFERASE 15 IU/L (10-60); AST ASPARTATE AMINOTRANSFERASE 19 IU/L (10-42); BILIRUBIN,TOTAL 0.7 mg/dL (0.2-1.0); BUN - BLOOD UREA NITROGEN 15 mg/dL (6-20); CALCIUM 9.3 mg/dL (8.5-10.3); CARBON DIOXIDE - CO2 24 mmol/L (21-32); CHLORIDE 103 mmol/L (101-111); CHOL/HDL RATIO 4.6 (<4.4); CHOLESTEROL 246 mg/dL; CREATININE 0.8 mg/dL (0.4-1.0); GFR - MDRD 73 (>89); GLUCOSE 144 mg/dL (70-100); HDL CHOLESTEROL 54 mg/dL; LDL CHOLESTEROL,CALCULATED 170 mg/dL; LDL/HDL RATIO 3.1 (<4.4); SODIUM 138 mmol/L (135-145); TOTAL PROTEIN 7.1 g/dL (6.7-8.2); VLDL CHOLESTEROL 22 mg/dL
== END 2018-06-05 23:59 | disposition home or self-care (01) ==
LOC: LAB.N 08:00
PROVIDERS: ATTEND Physician Assistant Medical
DX: E11.9 Type 2 diabetes mellitus without complications (principal); E55.9 Vitamin D deficiency, unspecified; E03.9 Hypothyroidism, unspecified; E78.5 Hyperlipidemia, unspecified
CPT/HCPCS: 36415; 80053; 80061; 82306; 83036; 83721; 84443

== ENCOUNTER 2018-06-21 13:20 | Outpatient (CLI) | payer MEDICARE, OTHER, MEDICAID ==
[2018-06-21 19:58] LABS: FREE T4 (FREE THYROXINE) 1.24 ng/dL (0.58-1.64)
== END 2018-06-21 23:59 | disposition home or self-care (01) ==
LOC: LAB.N 13:20
PROVIDERS: ATTEND Physician Assistant Medical
DX: E03.9 Hypothyroidism, unspecified (principal)
CPT/HCPCS: 36415; 84439; 84443

== ENCOUNTER 2018-07-02 17:07 | Outpatient (CLI) | payer MEDICARE, OTHER, MEDICAID | END 2018-07-02 17:08 | disposition critical access hospital (66) | LOC: EMS 17:07 | PROVIDERS: ATTEND Surgery | DX: T63.441A Toxic effect of venom of bees, accidental (unintentional), initial encounter (principal); R60.0 Localized edema | CPT/HCPCS: A0425; A0427 ==

== ENCOUNTER 2018-07-02 17:27 | Emergency (ER) | payer MEDICARE, OTHER, MEDICAID ==
[2018-07-02] MEDS ORDERED: ALBUTEROL NEB 2.5 MG/3 ML INH STA (17:54)
[2018-07-02] MEDS ORDERED: methylPREDNISolone SUCCINATE 125 MG/2 ML VIAL IVP STA (17:55)
--- NOTE | 2018-07-02 18:00 | ED Physician Documentation ---
History of Present Illness - Stated complaint Stated Complaint: BEE STING - Chief complaint Chief Complaint: Allergic Rx - History obtained from History obtained from: Patient, EMS - History of Present Illness Timing: Today Pain level max: 0 Pain level now: 0 Improved by: epi, benadryl Worsened by: nothing - Additonal information Additional information: states stung by 4 bees today. Took epi pen. EMS gave 50mg IV benadryl. Pt took albuterol [place] as well. Still feels short of breath. Review of Systems Constitutional: denies: Fever, Chills Nose: denies: Rhinorrhea / runny nose, Congestion Respiratory: denies: Cough GI: denies: Nausea, Vomiting, Diarrhea Skin: denies: Rash Musculoskeletal: denies: Neck pain, Back pain Neurologic: denies: Focal weakness, Numbness, Headache PD PAST MEDICAL HISTORY - Past Medical History Past Medical History: Yes Cardiovascular: Hypertension, High cholesterol Respiratory: Asthma Endocrine/Autoimmune: Type 2 diabetes : Incontinence Psych: Depression, Anxiety Musculoskeletal: Osteoarthritis, Chronic back pain - Past Surgical History Past Surgical History: Yes 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, Tubal ligation HEENT: Tonsil/Adenoidectomy - Present Medications Home Medications: Ambulatory Orders Medication Instructions Recorded Confirmed Levothyroxine Sodium 112 mcg PO DAILY 06/06/12 07/02/18 Multivitamin [Multiple Vitamins] 1 each PO DAILY PRN 06/06/12 07/02/18 Omeprazole [PriLOSEC] 40 mg PO DAILY 02/25/13 07/02/18 Oxycodone HCl/Acetaminophen 1 each PO Q4H PRN #20 tablet 11/14/13 07/02/18 [Percocet 10-325 mg Tablet] Ketorolac [Toradol] 10 mg PO PRN PRN 05/04/15 07/02/18 Albuterol Sulf [Ventolin Hfa 1 - 2 puffs INH Q4HR PRN 04/16/16 07/02/18 Inhaler] Montelukast [Singulair] 10 mg PO QPM 04/16/16 07/02/18 Atorvastatin [Lipitor] 20 mg PO DAILY 03/12/17 07/02/18 Quetiapine Fumarate [Seroquel] 1 tab PO DAILY 03/12/17 07/02/18 Fremanezumab-Vfrm [Ajovy] 07/02/18 Levocetirizine Dihydrochloride 5 mg ORAL DAILY 07/02/18 07/02/18 metFORMIN [Glucophage] 1 tab ORAL BID 07/02/18 07/02/18 predniSONE [Prednisone] 40 mg PO DAILY #6 tablet 07/02/18 - Allergies Allergies/Adverse Reactions: Allergies Allergy/AdvReac Type Severity Reaction Status Date / Time strawberry [[place]] Allergy Severe Rash Verified 07/02/18 17:33 clindamycin Allergy Intermediate Emesis Verified 07/02/18 17:33 sulfamethoxazole Allergy Mild Rash Verified 07/02/18 17:33 [From Septra] trimethoprim [From Septra] Allergy Mild Rash Verified 07/02/18 17:33 adhesive tape Allergy Rash Verified 07/02/18 17:33 butorphanol tartrate * Allergy Hives Verified 07/02/18 17:33 [From Stadol] codeine Allergy Hives Verified 07/02/18 17:33 doxycycline Allergy Hives Verified 07/02/18 17:33 erythromycin lactobionate * Allergy Hives Verified 07/02/18 17:33 [From Erythrocin] hydromorphone HCl * Allergy Hives Verified 07/02/18 17:33 [From Dilaudid] meperidine HCl * Allergy Hives Verified 07/02/18 17:33 [From Demerol] NSAIDS (Non-Steroidal Allergy Hives Verified 07/02/18 17:33 Anti-Inflamma Penicillins Allergy Hives Verified 07/02/18 17:33 pregabalin [From Lyrica] Allergy Hives Verified 07/02/18 17:33 simvastatin [From Zocor] Allergy Hives Verified 07/02/18 17:33 sumatriptan [From Imitrex] Allergy Hives Verified 07/02/18 17:33 sumatriptan succinate * Allergy Hives Verified 07/02/18 17:33 [From Imitrex] vilazodone HCl * Allergy Unknown Verified 07/02/18 17:33 [From Viibryd] vortioxetine hydrobromide * Allergy Anxiety Verified 07/02/18 17:33 [From Trintellix] morphine AdvReac Headache Verified 07/02/18 17:33 [employer] Allergy Severe Respiratory Uncoded 07/02/18 17:33 - Social History Does the pt smoke?: No Smoking Status: Never smoker Does the pt drink ETOH?: No Does the pt have substance abuse?: No - Immunizations Immunizations are current?: Yes - POLST Patient has POLST: No PD ED PE NORMAL - Vitals Vital signs reviewed: Yes - General General: Alert and oriented X 3, No acute distress - HEENT HEENT: Moist mucous membranes, Pharynx benign, Other (no stridor) - Neck Neck: Supple, no meningeal sign - Cardiac Cardiac: RRR, Strong equal pulses - Respiratory Respiratory: No respiratory distress, Other (mild wheezing) - Abdomen Abdomen: Soft, Non tender, Non distended - Derm Derm: Warm and dry, No rash - Extremities Extremities: No edema - Neuro Neuro: Alert and oriented X 3 Results - Vitals Vitals: Vital Signs - 24 hr 07/02/18 07/02/18 07/02/18 17:31 17:52 18:04 Temperature 37.0 C Heart Rate 118 H 108 H Respiratory 18 17 20 Rate Blood Pressure 150/73 H O2 Saturation 97 07/02/18 07/02/18 19:24 19:40 Temperature Heart Rate 103 H 76 Respiratory 18 18 Rate Blood Pressure 134/60 H 152/70 H O2 Saturation 95 98 Oxygen O2 Source Room air PD MEDICAL DECISION MAKING - ED course Complexity details: re-evaluated patient, considered differential, d/w patient ED course: Patient given Solu-Medrol and albuterol. Symptoms resolved. No recurrence in the emergency department. Will prescribe steroids for home. No anaphylaxis. P atient counseled regarding signs and symptoms for which I believe and urgent re- evaluation would be necessary. Patient with good understanding of and agreement to plan and is comfortable going home at this time This document was made in part using voice recognition software. While efforts are made to proofread this document, sound alike and grammatical errors may occur. Departure - Departure Disposition: 01 Home, Self Care Clinical Impression: Allergic reaction Qualifiers: Encounter type: initial encounter Qualified Code(s): T78.40XA - Allergy, unspecified, initial encounter Condition: Good Instructions: ED Bite Sting Insect Gen Allergic React Follow-Up: Maral Velez ARNP [Primary Care Provider] - Within 1 week Prescriptions: predniSONE [Prednisone] 40 mg PO DAILY #6 tablet Comments: Continue the steroids at home. Return if you worsen. Follow-up with your doctor for further care. Discharge Date/Time: 07/02/18 19:41
[2018-07-02 19:41] VITALS: BP 152/70
== END 2018-07-02 19:41 | disposition home or self-care (01) ==
LOC: EDUNIT# → ED 17:27
DX: T63.441A Toxic effect of venom of bees, accidental (unintentional), initial encounter (principal); X58.XXXA Exposure to other specified factors, initial encounter; I10 Essential (primary) hypertension; E11.9 Type 2 diabetes mellitus without complications; Z79.84 Long term (current) use of oral hypoglycemic drugs
CPT/HCPCS: 94640; 96374; 99283

== ENCOUNTER 2018-07-17 14:54 | Outpatient (CLI) | payer MEDICARE, OTHER, MEDICAID ==
--- NOTE | 2018-07-17 15:42 | XRAY Report ---
Reason: JOINT PAIN L HIP Procedure Date: 07/17/2018 Accession Number: [id number] / [id number] Procedure: XRN - Hip w/Pelvis 2-3V LT CPT Code: FULL RESULT: EXAM: LEFT HIP RADIOGRAPHY EXAM DATE: 07/17/2018 03:13 PM. CLINICAL HISTORY: JOINT PAIN L HIP. COMPARISON: None. TECHNIQUE: 2 views. FINDINGS: Bones: Normal. No fractures or bone lesion. Joints: Normal. No dislocation. The hip joint space is preserved. Soft Tissues: Normal. No soft tissue swelling. IMPRESSION: Normal hip radiography. RADIA
== END 2018-07-17 14:55 | disposition home or self-care (01) ==
LOC: DI.N 14:54
PROVIDERS: ATTEND Nurse Practitioner Gerontology
DX: M25.552 Pain in left hip (principal)

== ENCOUNTER 2018-08-10 15:39 | Outpatient (CLI) | payer MEDICARE, OTHER, MEDICAID | END 2018-08-10 15:40 | disposition critical access hospital (66) | LOC: EMS 15:39 | PROVIDERS: ATTEND Surgery | DX: R55 Syncope and collapse (principal); R51 Headache; R07.9 Chest pain, unspecified | CPT/HCPCS: A0425; A0429 ==

== ENCOUNTER 2018-08-10 15:56 | Emergency (ER) | payer MEDICARE, OTHER, MEDICAID ==
[2018-08-10] MEDS ORDERED: SODIUM CHLORIDE 0.9% 1,000 ML IV ONE (16:31)
[2018-08-10] MEDS ORDERED: KETOROLAC 30 MG/ML VIAL IVP STA (16:31)
[2018-08-10] MEDS ORDERED: DEXAMETHASONE 10 MG/ML VIAL IVP STA (16:32)
[2018-08-10] MEDS ORDERED: PROCHLORPERAZINE 10 MG/2 ML VIAL IVP STA (16:32)
[2018-08-10] MEDS ORDERED: diphenhydrAMINE INJ 50 MG/ML VIAL IVP STA (16:32)
[2018-08-10 16:58] LABS: BASOPHILS # (AUTO) 0.1 10^3/uL (0.0-0.1); BASOPHILS % (AUTO) 0.9 %; EOSINOPHILS # (AUTO) 0.2 10^3/uL (0.0-0.7); EOSINOPHILS % (AUTO) 2.5 %; HGB - HEMOGLOBIN 11.5 g/dL (12.0-16.0); LYMPHOCYTES # (AUTO) 2.2 10^3/uL (1.5-3.5); LYMPHOCYTES % (AUTO) 27.6 %; MEAN CORPUSCULAR HGB CONC 31.4 g/dL (32.0-36.0); MEAN CORPUSCULAR VOLUME 92.2 fL (81.0-99.0); MEAN PLATELET VOLUME 10.1 fL (7.9-10.8); MONOCYTES # (AUTO) 0.6 10^3/uL (0.0-1.0); MONOCYTES % (AUTO) 7.3 %; NEUTROPHILS # (AUTO) 4.9 10^3/uL (1.5-6.6); NEUTROPHILS % (AUTO) 61.5 %; PLT - PLATELET COUNT 188 10^3/uL (130-450); RED BLOOD COUNT 3.97 10^6/uL (4.20-5.40); RED CELL DISTRIBUTION WIDTH 13.6 % (12.0-15.0)
[2018-08-10 17:08] LABS: ALBUMIN 3.6 g/dL (3.2-5.5); ALBUMIN/GLOBULIN RATIO 1.2 (1.0-2.2); BILIRUBIN,TOTAL 0.4 mg/dL (0.2-1.0); CALCIUM 8.5 mg/dL (8.5-10.3); CREATININE 0.9 mg/dL (0.4-1.0); TOTAL PROTEIN 6.5 g/dL (6.7-8.2)
[2018-08-10] MEDS ORDERED: LIDOCAINE VISCOUS 2% 15 ML UDC MM STA (17:44)
[2018-08-10] MEDS ORDERED: MAG HYDROX/AL HYDROX/SIMETH 30 ML UDC PO STA (17:44)
--- NOTE | 2018-08-10 17:52 | ED Physician Documentation ---
PD HPI HEADACHE - Stated complaint Stated Complaint: ALOC - Chief complaint Chief Complaint: Neuro - History obtained from History obtained from: Patient - History of Present Illness Timing - onset: How many weeks ago (1) Worst headache ever?: Worst headache ever? (No) Location: Global Similar symptoms before: Diagnosis (migraine headaches) - Treatment prior to arrival Treatment prior to arrival: Has taken four 10 mg Percocet over the course of the day. - Additional information Additional information: the patient is a chronically debilitated female with diabetes, multiple sclerosis, and chronic pain syndrome, who presents via ambulance complaining of headache and chest pain today. She has a history of migraine headaches and her headache currently feels similar to previous migraines. She also complains of feeling "hot and clammy" for the past week, and has been "blacking out" today. 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 She has taken two 10 mg Percocet at 8:00 this morning, and another 2 at 12:30, which was about 4 hours prior to arrival. On further review of systems she reports feeling generally weak, without focal numbness or weakness. She denies sore throat, abdominal pain, nausea or vomiting. She denies cough or shortness of breath. She has chronic low back pain and chronic left knee pain since left total knee replacement 7 months ago. She has a nerve stimulator in place for her chronic pain. Review of Systems Constitutional: reports: Fatigue Eyes: denies: Decreased vision Ears: denies: Tinnitus/ringing Nose: denies: Congestion Throat: denies: Sore throat Cardiac: reports: Chest pain / pressure (lower substernal) Respiratory: denies: Dyspnea, Cough GI: denies: Abdominal Pain, Nausea, Vomiting : denies: Dysuria Skin: denies: Rash Musculoskeletal: reports: Back pain (chronically), Joint pain (chronic left knee pain) Neurologic: reports: Generalized weakness, Headache. 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, Tubal ligation HEENT: Tonsil/Adenoidectomy - Present Medications Home Medications: Ambulatory Orders Medication Instructions Recorded Confirmed Levothyroxine Sodium 112 mcg PO DAILY 06/06/12 07/02/18 Multivitamin [Multiple Vitamins] 1 each PO DAILY PRN 06/06/12 07/02/18 Omeprazole [PriLOSEC] 40 mg PO DAILY 02/25/13 07/02/18 Oxycodone HCl/Acetaminophen 1 each PO Q4H PRN #20 tablet 11/14/13 07/02/18 [Percocet 10-325 mg Tablet] Ketorolac [Toradol] 10 mg PO PRN PRN 05/04/15 07/02/18 Albuterol Sulf [Ventolin Hfa 1 - 2 puffs INH Q4HR PRN 04/16/16 07/02/18 Inhaler] Montelukast [Singulair] 10 mg PO QPM 04/16/16 07/02/18 Atorvastatin [Lipitor] 20 mg PO DAILY 03/12/17 07/02/18 Quetiapine Fumarate [Seroquel] 1 tab PO DAILY 03/12/17 07/02/18 Fremanezumab-Vfrm [Ajovy] 07/02/18 Levocetirizine Dihydrochloride 5 mg ORAL DAILY 07/02/18 07/02/18 metFORMIN [Glucophage] 1 tab ORAL BID 07/02/18 07/02/18 predniSONE [Prednisone] 40 mg PO DAILY #6 tablet 07/02/18 Prochlorperazine [Compazine] 10 mg PO Q6H PRN #10 tablet 08/10/18 - Allergies Allergies/Adverse Reactions: Allergies Allergy/AdvReac Type Severity Reaction Status Date / Time strawberry [[place]] Allergy Severe Rash Verified 07/02/18 17:33 clindamycin Allergy Intermediate Emesis Verified 08/10/18 16:12 sulfamethoxazole Allergy Mild Rash Verified 08/10/18 16:12 [From Septra] trimethoprim [From Septra] Allergy Mild Rash Verified 08/10/18 16:12 adhesive tape Allergy Rash Verified 08/10/18 16:12 butorphanol tartrate * Allergy Hives Verified 08/10/18 16:12 [From Stadol] codeine Allergy Hives Verified 08/10/18 16:12 doxycycline Allergy Hives Verified 08/10/18 16:12 erythromycin lactobionate * Allergy Hives Verified 08/10/18 16:12 [From Erythrocin] hydromorphone HCl * Allergy Hives Verified 08/10/18 16:12 [From Dilaudid] meperidine HCl * Allergy Hives Verified 08/10/18 16:12 [From Demerol] NSAIDS (Non-Steroidal Allergy Hives Verified 08/10/18 16:12 Anti-Inflamma Penicillins Allergy Hives Verified 08/10/18 16:12 pregabalin [From Lyrica] Allergy Hives Verified 08/10/18 16:12 simvastatin [From Zocor] Allergy Hives Verified 08/10/18 16:12 sumatriptan [From Imitrex] Allergy Hives Verified 08/10/18 16:12 sumatriptan succinate * Allergy Hives Verified 08/10/18 16:12 [From Imitrex] vilazodone HCl * Allergy Unknown Verified 08/10/18 16:12 [From Viibryd] vortioxetine hydrobromide * Allergy Anxiety Verified 08/10/18 16:12 [From Trintellix] morphine AdvReac Headache Verified 08/10/18 16:12 [place] Allergy Severe Respiratory Uncoded 07/02/18 17:33 - Social History Does the pt smoke?: No Smoking Status: Never smoker Does the pt drink ETOH?: No Does the pt have substance abuse?: No - Immunizations Immunizations are current?: Yes Immunizations: TDAP current <10years - POLST Patient has POLST: No PD ED PE NORMAL - Vitals Vital signs reviewed: Yes (normal) - General General: Alert and oriented X 3, Other (Overweight.) - HEENT HEENT: Atraumatic, PERRL, EOMI, Ears normal, Pharynx benign - Neck Neck: Supple, no meningeal sign, No adenopathy, No JVD - Cardiac Cardiac: RRR - Respiratory Respiratory: No respiratory distress, Clear bilaterally - Abdomen Abdomen: Soft, Other (Mild epigastric tenderness to palpation, without rebound or guarding.) - Back Back: No CVA TTP - Derm Derm: No rash - Extremities Extremities: No calf tenderness / cord - Neuro Neuro: Alert and oriented X 3, No motor deficit (Generalized weakness, without focal motor deficit.), Normal speech Results - Vitals Vitals: Oxygen O2 Source Room air - EKG (time done) 16:12 Rate: Rate (enter#) (83) Rhythm: NSR [place]: Normal QRS: Normal Ischemia: Other (Artifact from neurotransmitter.) Compare to prior EKG: Unchanged from prior EKG (Other than artifact no significant change compared to 01/06/18.) Computer interpretation: Agree with computer - Labs Labs: Laboratory Tests 08/10/18 08/10/18 08/10/18 16:44 16:44 16:44 WBC 8.0 RBC 3.97 L Hgb 11.5 L Hct 36.6 L MCV 92.2 MCH 29.0 MCHC 31.4 L RDW 13.6 Plt Count 188 MPV 10.1 Neut # (Auto) 4.9 Lymph # (Auto) 2.2 [place] # (Auto) 0.6 Eos # (Auto) 0.2 Baso # (Auto) 0.1 Absolute Nucleated RBC 0.00 Nucleated RBC % 0.0 Sodium 138 Potassium 4.4 Chloride 104 Carbon Dioxide 26 Anion Gap 8.0 BUN 26 H Creatinine 0.9 Estimated GFR (MDRD) 64 L Glucose 105 H Calcium 8.5 Total Bilirubin 0.4 AST 15 ALT 15 Alkaline Phosphatase 95 Troponin I < 0.04 Total Protein 6.5 L Albumin 3.6 Globulin 2.9 Albumin/Globulin Ratio 1.2 Lipase 24 PD MEDICAL DECISION MAKING - ED course Complexity details: reviewed old records, reviewed results, re-evaluated patient, considered differential, d/w patient, d/w family ED course: The patient's presentation is most consistent with recurrent migraine headache and gastroesophageal reflux. She also has clinical evidence of volume depletion, with an elevated BUN/creatinine ratio, with a BUN of 26 and creatinine 0.9. Her electrocardiogram reveals no evidence of acute myocardial ischemia, and her troponin is normal at less than 0.04. Treatment in the emergency department included administration of normal saline 1 L IV, Compazine 10 mg IV, Benadryl 25 mg IV, ketorolac 30 mg IV, and a GI cocktail. After the above treatment the patient felt subjectively much improved and appeared more vibrant. She is being discharged with a prescription for Compazine. I discussed with her the diagnosis, symptomatic treatment and outpatient follow-up, as well as potentially worrisome signs or symptoms that should prompt reevaluation in the emergency department. Departure - Departure Disposition: , Self Care Clinical Impression: Migraine Qualifiers: Migraine type: unspecified Status migrainosus presence: with status migrainosus Intractability: not intractable Qualified Code(s): G43.901 - Migraine, unspecified, not intractable, with status migrainosus GERD (gastroesophageal reflux disease) Qualifiers: Esophagitis presence: esophagitis presence not specified Qualified Code(s): K21.9 - Gastro-esophageal reflux disease without esophagitis Condition: Stable Instructions: ED GERD, ED Headache Migraine Follow-Up: Kyle Delaney PA-C [Credentialed Staff Provider] - Prescriptions: Prochlorperazine [Compazine] 10 mg PO Q6H PRN #10 tablet PRN Reason: Nausea / Vomiting Comments: Drink plenty of fluids. You can use Compazine as prescribed if needed for nausea. If you develop recurrent chest discomfort liquid antacid, such as Maalox or Mylanta. Follow-up with your primary physician within 1 week. Call to schedule appointment. Return to the emergency department if you develop increasing headache, persistent vomiting, increasing chest pain or shortness of breath, or otherwise worsening symptoms. Discharge Date/Time: 08/10/18 18:29
[2018-08-10 18:30] VITALS: BP 124/80
== END 2018-08-10 18:29 | disposition home or self-care (01) ==
LOC: EDUNIT# → ED 15:56
DX: G43.901 Migraine, unspecified, not intractable, with status migrainosus (principal); K21.9 Gastro-esophageal reflux disease without esophagitis; E86.9 Volume depletion, unspecified; I10 Essential (primary) hypertension; E11.9 Type 2 diabetes mellitus without complications; G35 Multiple sclerosis; G89.4 Chronic pain syndrome; Z79.84 Long term (current) use of oral hypoglycemic drugs
CPT/HCPCS: 36415; 80053; 83690; 84484; 85025; 93005; 96361; 96374; 96375; 99283; 99284; A9270; J1200

== ENCOUNTER 2018-11-01 10:12 | Outpatient (CLI) | payer MEDICARE, OTHER, MEDICAID ==
[2018-11-01 11:56] LABS: BASOPHILS # (AUTO) 0.1 10^3/uL (0.0-0.1); EOSINOPHILS # (AUTO) 0.2 10^3/uL (0.0-0.7); EOSINOPHILS % (AUTO) 3.2 %; HGB - HEMOGLOBIN 13.5 g/dL (12.0-16.0); LYMPHOCYTES # (AUTO) 1.4 10^3/uL (1.5-3.5); LYMPHOCYTES % (AUTO) 23.7 %; MEAN CORPUSCULAR HEMOGLOBIN 30.3 pg (27.0-31.0); MEAN CORPUSCULAR HGB CONC 32.9 g/dL (32.0-36.0); MEAN CORPUSCULAR VOLUME 92.1 fL (81.0-99.0); MEAN PLATELET VOLUME 10.2 fL (7.9-10.8); MONOCYTES # (AUTO) 0.4 10^3/uL (0.0-1.0); MONOCYTES % (AUTO) 6.5 %; NEUTROPHILS # (AUTO) 3.9 10^3/uL (1.5-6.6); NEUTROPHILS % (AUTO) 65.4 %; PLT - PLATELET COUNT 194 10^3/uL (130-450); RED BLOOD COUNT 4.45 10^6/uL (4.20-5.40); RED CELL DISTRIBUTION WIDTH 13.4 % (12.0-15.0)
[2018-11-01 12:15] LABS: CALCIUM 9.1 mg/dL (8.5-10.3); CREATININE 0.8 mg/dL (0.4-1.0)
[2018-11-01 13:25] LABS: HB2 TOTAL 13.7 g/dL; HEMOGLOBIN A1C 0.52 g/dL; HEMOGLOBIN A1C % 5.6 % (4.6-6.2)
== END 2018-11-01 23:59 | disposition home or self-care (01) ==
LOC: LAB.N 10:12
DX: Z01.818 Encounter for other preprocedural examination (principal); R73.9 Hyperglycemia, unspecified
CPT/HCPCS: 36415; 80048; 83036; 85025

== ENCOUNTER 2018-12-17 10:50 | Outpatient (CLI) | payer MEDICARE, OTHER, MEDICAID | END 2018-12-17 10:51 | disposition EMS.NT | LOC: EMS 10:50 | PROVIDERS: ATTEND Surgery | DX: R41.0 Disorientation, unspecified (principal); F41.9 Anxiety disorder, unspecified ==

== ENCOUNTER 2019-01-02 12:48 | Outpatient (CLI) | payer MEDICARE, OTHER, MEDICAID ==
[2019-01-02 18:37] VITALS: BP 130/60
--- NOTE | 2019-01-02 18:37 | SLEEP CARE CONSULTATION ---
Information from patient questionnaire entered by Guerita Last. I have reviewed and concur with the information entered by Guerita Last. This document represents the service I personally performed and the decisions made by me, Mickie Singleton, RN, MSN, TRIAGE LICENSED PRACTICAL NURSE. History of Present Illness Reason for Visit: New patient, Previously diagnosed sleep apnea, Re-establish care Accompanied by: caregiver Christy Gomez Chief Complaint: reports: Insomnia, Unrefreshed sleep, Fatigue, Frequent awakenings at night Duration of Symptoms: over 1 year Usual bedtime: 9-10 pm Time it takes to fall asleep: 30-60 minutes but up to 3 hours Snores at night: Yes Observed to quit breathing while asleep: No Sleeps alone due to snoring: No Number of times waking at night: 3-5 takes 30 minutes to fall back to sleep every time due to pain. Reasons for waking at night: reports: Gasping for air (recently after neck while on extra pain medication ), Pain, Bathroom, Other (rolling over) Toss, Turn, or Twitch while sleeping: Yes Recalls having dreams: No Usually gets out of bed at: 9-10 am (depending on the night I had Feels refreshed in the morning: No Morning headache: No Sleepy or fatigued during the day: Yes Ever fallen asleep while driving: No (She does not drive ) Takes day naps: Yes (sometimes a couple times a month for 30-60 minutes) Dreams during day naps: No Prior sleep studies: Yes Year and Where: 2012 - [facility] - Parasomnia Symptoms Ever been unable to move upon waking from sleep: No Walks in sleep: No Talks in sleep: No Ever acted out dreams in sleep: No Ever felt weak in the knees when startled or emotional: Yes (bilateral knee replacements) Bothered by creepy, crawly, restless sensations in legs: Yes ( daily symptoms most of day, relieved with movement) Problems with memory or concentration: Yes Subjective Initial [place] Sleepiness Scale score: 15 (in 2012) Current [place] Sleepiness Scale score: 10 Past Medical History Past Medical History: reports: Claustrophobia, Diabetes, Arthritis, Hypothyroidism, Fibromyalgia, Anxiety, Asthma, Depression, Mood disorder (Bipolor ), GERD, Other (migraines, conversion reaction disorder, chronic pain, cholesterol, incontinence - recent cervical fushion 11/22/18) Social History The patient's occupation is disabled. Patient is and lives in [place]. Have you smoked in the past 12 months: No Cigarettes per day (20/pack): 20 Years of smokin Quit date: 1974 Smoking Pack Years: 3.0 Alcohol use: No Caffeine use: Yes Caffeine amount and frequency: reduced to 1 can soda and one hot chocolate and none after 3 pm Family History Family history of sleep disordered breathing: Yes Family Hx Sleep Apnea: Mother: Snoring, Sibling: Snoring, Grandparent: Snoring Allergies and Home Medications Known drug allergies: Yes (see extensive list ) Home medication list reviewed: Yes Allergy and home medication list: atovastatin 40mg daily Ajovy 225mg injection monthly for migraine Albuterol inhaler 90mcg 2 puffs 4 times a day Albuterol sulfate nebulize prn desvenlafax 50mg ketorlac 10mg 1-2 prn migraines Ketorlax 30mg ijection 2 per week prn migraines levocetirizine 5mg daily levothyroxin 125mcy daily metformin 1000mg twice daily montelukast 10mg daily myrberiq 50mg daily omeprazole 20mg daily percocet 10/325mg 1-2 prn pain every -4 hours quetiapine 300mg daily rizatriptan 10mg prn migraines tizanidine 4mg 1-3 maximum prn daily topiramate 50mg 4 daily multivitamin daily calicium 600mg 1-2 daily Vitamin D3 1000 units daily fish oil 1000mg [id number] 5000mcg daily potassium 99mg daily magnesium 400m daily Please see patients updated allergy list 20 items food and medications Review of Systems Weight loss over past 5 years: 50 Respiratory: reports: shortness of breath (with extra exercise) Gastrointestinal: reports: heartburn, difficulty swallowing (from recent surgery - working with speech therapist ) Urinary: reports: incontinence Neurological: reports: headaches (history of migrained ), fainting or unconsciousness (conversion reaction disorder) Psychiatric: reports: anxiety, depression (no thoughts of hurting self or others ), mood disorder, claustrophobia Ear/Nose/Throat: reports: dry mouth/throat (in morning ), hoarseness (from recent surgery), tonsillectomy, wisdom teeth removed Endocrine: reports: thyroid disease, sluggishness, excessive thirst Musculoskeletal: reports: joint pain, neck pain, back pain, muscle pain or cramping, mobility problems (uses cane and walker for long distances. - wheelchair for extreme distances ) Immunologic: reports: allergies to food or environment Physical Exam Blood Pressure: 130/60 Cuff size: long Heart Rate: 93 O2 Saturation: 96 Height: 5 ft 4 in Weight: 234 lb 3.2 oz Body Mass Index: 40.1 BMI Classification: Obesity Class 3 Neck circumference: 14.25 HEENT: No craniofacial malformation Nostrils: patent to airflow Turbinates: swollen Septum: midline Mouth and throat: narrow oropharynx Soft palate: long Uvula: normal Uvula visualization: 25% Mallampati Class III Tongue: normal in size Tonsils: absent bilaterally Chin and jaw: normal size and position Neck: normal w/o lymphadenopathy or thyromegaly Heart: regular rate and rhythm Lungs: clear bilaterally Extremities: no edema or clubbing Impression and Plan 1. Suspected Obstructive Sleep Apnea-Hypopnea Syndrome, as previously diagnosed and not currently treated. Her current history includes loud and irregular snoring, gasping or choking in sleep, unrefreshed sleep, cognitive impairment, and excessive daytime sleepiness. Narrow oropharynx and obesity are common predisposing factors for obstructive sleep apnea-hypopnea syndrome. She has lost 39 pounds since last seen but is still morbidly obese with a Mallapatti lll. Patient suspects she still has apnea and feels she will be able to tolerate CPAP better if still is indicated due to new mask styles. I recommend proceeding to polysomnography to confirm the diagnosis and to assess severity. She requested her spouse stay over in [facility] due to her conversion reaction disorder which involves spontaneous blackouts and it was added to sleep study order. If the patient has significant sleep disordered breathing, a manual CPAP titration study will also be performed to find the optimal treatment pressure. I informed the patient of what the sleep studies involve and after some discussion, obtained agreement to proceed. The pathophysiology of obstructive sleep apnea- hypopnea syndrome was discussed with the patient and health risks of cardiovascular and cerebrovascular disease if not treated. AASM brochure for obstructive sleep apnea-hypopnea syndrome given and reviewed. 2. Insomnia, that could be due to her apnea, chronic pain as well as going to bed too early. Thus she is to go to bed later and restrict her time in bed to 9 hours. So with a 9am wake time, her bedtime should be about 12 midnight. She is not to go to bed unless sleepy. She was instead encouraged to craft until time for bed as this can be relaxing for her. * Schedule polysomnography +- manual CPAP titration study * Avoid long distance driving or driving when feeling sleepy. * Avoid alcohol, sedative and muscle relaxant around bedtime. * Continue to lose weight. * Implement methods to reduce insomnia. * Review instructions provided by trained office staff on how to prepare for the sleep study. * Return for follow-up after sleep study completed. I spent 100% of this 40 minute visit face to face with the patient with greater than 50% of this was spent time counseling the patient and coordination of care.
== END 2019-01-02 12:49 | disposition home or self-care (01) ==
LOC: SC 12:48
PROVIDERS: ATTEND Nurse Practitioner Family
DX: G47.33 Obstructive sleep apnea (adult) (pediatric) (principal); G47.00 Insomnia, unspecified; E66.9 Obesity, unspecified; Z68.41 Body mass index [BMI] 40.0-44.9, adult
CPT/HCPCS: 99204; G0463; 99212

== ENCOUNTER 2019-01-19 19:40 | Outpatient (CLI) | payer MEDICARE, OTHER, MEDICAID | END 2019-01-19 19:41 | disposition home or self-care (01) | LOC: SC 19:40 | PROVIDERS: ATTEND Internal Medicine Pulmonary Disease | DX: G47.33 Obstructive sleep apnea (adult) (pediatric) (principal); E66.01 Morbid (severe) obesity due to excess calories; Z68.41 Body mass index [BMI] 40.0-44.9, adult | CPT/HCPCS: 95810 ==

== ENCOUNTER 2019-02-05 07:00 | Outpatient (CLI) | payer MEDICARE, OTHER, MEDICAID ==
[2019-02-05 18:27] LABS: BASOPHILS # (AUTO) 0.1 10^3/uL (0.0-0.1); BASOPHILS % (AUTO) 0.9 %; EOSINOPHILS # (AUTO) 0.2 10^3/uL (0.0-0.7); EOSINOPHILS % (AUTO) 2.6 %; HGB - HEMOGLOBIN 12.2 g/dL (12.0-16.0); LYMPHOCYTES # (AUTO) 1.7 10^3/uL (1.5-3.5); LYMPHOCYTES % (AUTO) 25.4 %; MEAN CORPUSCULAR HEMOGLOBIN 28.2 pg (27.0-31.0); MEAN CORPUSCULAR HGB CONC 30.1 g/dL (32.0-36.0); MEAN CORPUSCULAR VOLUME 93.5 fL (81.0-99.0); MEAN PLATELET VOLUME 10.9 fL (7.9-10.8); MONOCYTES # (AUTO) 0.4 10^3/uL (0.0-1.0); MONOCYTES % (AUTO) 6.2 %; NEUTROPHILS # (AUTO) 4.2 10^3/uL (1.5-6.6); NEUTROPHILS % (AUTO) 64.4 %; PLT - PLATELET COUNT 211 10^3/uL (130-450); RED BLOOD COUNT 4.33 10^6/uL (4.20-5.40); RED CELL DISTRIBUTION WIDTH 13.4 % (12.0-15.0); WHITE BLOOD COUNT 6.5 x10^3/uL (4.8-10.8)
[2019-02-05 19:13] LABS: ALBUMIN 3.6 g/dL (3.2-5.5); ALBUMIN/GLOBULIN RATIO 1.2 (1.0-2.2); ALKALINE PHOSPHATASE 100 IU/L (42-121); ALT ALANINE AMINOTRANSFERASE 16 IU/L (10-60); AST ASPARTATE AMINOTRANSFERASE 15 IU/L (10-42); BILIRUBIN,TOTAL 0.5 mg/dL (0.2-1.0); BUN - BLOOD UREA NITROGEN 12 mg/dL (6-20); CALCIUM 8.5 mg/dL (8.5-10.3); CARBON DIOXIDE - CO2 24 mmol/L (21-32); CHLORIDE 108 mmol/L (101-111); CHOL/HDL RATIO 2.9 (<4.4); CHOLESTEROL 162 mg/dL; CREATININE 0.7 mg/dL (0.4-1.0); GFR - MDRD 85 (>89); GLUCOSE 104 mg/dL (70-100); HDL CHOLESTEROL 56 mg/dL; LDL CHOLESTEROL,CALCULATED 83 mg/dL; LDL/HDL RATIO 1.5 (<4.4); SODIUM 139 mmol/L (135-145); TOTAL PROTEIN 6.5 g/dL (6.7-8.2); VLDL CHOLESTEROL 23 mg/dL
[2019-02-05 19:23] LABS: THYROID STIMULATING HORMONE 0.43 uIU/mL (0.34-5.60)
[2019-02-05 19:25] LABS: FREE T4 (FREE THYROXINE) 0.8 ng/dL (0.58-1.64)
== END 2019-02-05 23:59 | disposition home or self-care (01) ==
LOC: LAB.N 07:00
PROVIDERS: ATTEND Physician Assistant Medical
DX: E78.5 Hyperlipidemia, unspecified (principal); E03.9 Hypothyroidism, unspecified
CPT/HCPCS: 36415; 80053; 80061; 83721; 84439; 84443; 85025

== ENCOUNTER 2019-02-14 09:23 | Outpatient (CLI) | payer MEDICARE, OTHER, MEDICAID ==
--- NOTE | 2019-02-14 10:27 | SLEEP CARE CONSULTATION ---
Information from patient questionnaire entered by Guerita Last. I have reviewed and concur with the information entered by Guerita Last. This document represents the service I personally performed and the decisions made by me, Mickie Singleton, RN, MSN, HIDE P[employer]ER. History of Present Illness Initial [place] Sleepiness Scale score: 15 Current [place] Sleepiness Scale score: 7 Additional HPI information: ELIOT ALEJANDRO returns with caregiver Christy Gomez for follow up and results of the recently performed polysomnography. I explained the pathophysiology behind obstructive sleep apnea. We then spent quite a bit of time discussing different treatment options. For mild obstructive sleep apnea, surgery and oral appliance are alternatives to nasal CPAP therapy but in moderate or severe cases, nasal CPAP is the most effective and reliable treatment. I reviewed the impact of weight changes on sleep apnea and strongly recommended losing weight. Patient has been in process of losign weight and lost 5 pounds since last seen. After some discussion, the patient would like to try CPAP again. She will be scheduled for a manual titration study to find optimal pressure and treatment mode. She is claustrophobic and had difficulty acclimating due to mask avai lability back in 2010. I showed her some small masks that she thinks look better to use. Patient counseled not drink alcohol less than 4 hours before bedtime as it can increase snoring and apnea. Patient does not drink alcohol. Patient was cautioned about risks of drowsy driving until sleepiness symptoms resolve. Patient does not drive. Sleep Study - Results Polysomnography/Home Sleep Study results: The quality of the study is good. The patient had reduced sleep efficiency due to sleep onset insomnia and several awakenings during the night. The sleep architecture was abnormal for sleep fragmentation and reduced amount of time spent in REM sleep. Respiratory monitoring showed moderate obstructive sleep apneahypopnea (AHI = 19.7) associated with frequent arousals, oxyhemoglobin desaturation and mild hypoxia (ian oxygen saturation of 86%). The respiratory events occurred mainly during supine sleep (supine AHI = 34.8; nonsupine = 10.70). The few central apneas occurred after she took Vicodin for headache. Snore was light to moderate in intensity. There was no significant periodic leg movement of sleep. Cardiac rhythm was normal sinus rhythm without significant arrhythmia. No abnormal behavior (parasomnia) observed during the night. Allergies and Home Medications Known drug allergies: Yes (see list ) Home medication list reviewed: Yes (no changes noted since last visit record) Review of Systems Review of systems same as previous: Yes Physical Exam Blood Pressure: 120/70 Cuff size: long Heart Rate: 83 O2 Saturation: 98 Weight: 229 lb 1.6 oz Weight change since last visit: lost 5 pounds Impression and Plan 1. Obstructive Sleep Apnea-Hypopnea Syndrome, moderate , with lowest oxygen saturation of 86%. Obviously this is the cause of the patients symptoms of unrefreshed sleep, and excessive daytime sleepiness. Positive pressure therapy could benefit her depression. It is hoped that treatment of her apnea will also reduce her insomnia. Patient cautioned not to use OTC sleep medications without clearing with pharmacist / PCP with rationale of possible interactions with current medications. ( unknown sleep aid taken recently one night twice due to insomnia) As mentioned above, the patient will be scheduled a titration study. Because the apnea is more severe supine, I instructed to avoid sleeping supine using pillow positioning until her sleep study and able to use CPAP. I explained at the study, she will be asked to sleep supine part of time to ensure apnea is well controlled with CPAP treatment. * * * Schedule manual titration study. * Continue to lose weight. * Avoid supine sleep until using CPAP. * Return after sleep study completed to review results and initiate treatment. Time Spent with Patient (minutes): 25 I spent 100% of this visit face to face with the patient with greater than 50% of this was spent time counseling the patient and coordination of care.
[2019-02-14 10:28] VITALS: BP 120/70
== END 2019-02-14 09:24 | disposition home or self-care (01) ==
LOC: SC 09:23
PROVIDERS: ATTEND Nurse Practitioner Family
DX: G47.33 Obstructive sleep apnea (adult) (pediatric) (principal)
CPT/HCPCS: 99214; G0463; 99212

== ENCOUNTER 2019-03-02 19:31 | Outpatient (CLI) | payer MEDICARE, OTHER, MEDICAID | END 2019-03-02 19:32 | disposition home or self-care (01) | LOC: SC 19:31 | PROVIDERS: ATTEND Internal Medicine Pulmonary Disease | DX: G47.33 Obstructive sleep apnea (adult) (pediatric) (principal); G47.61 Periodic limb movement disorder | CPT/HCPCS: 95811 ==

== ENCOUNTER 2019-03-19 11:05 | Outpatient (CLI) | payer MEDICARE, OTHER, MEDICAID ==
--- NOTE | 2019-03-19 12:20 | SLEEP CARE CONSULTATION ---
Information from patient questionnaire entered by Anna Mchugh. I have reviewed and concur with the information entered by Anna Mchugh. This document represents the service I personally performed and the decisions made by me, Vi Boss MD, [facility]. History of Present Illness Initial [place] Sleepiness Scale score: 15 Current [place] Sleepiness Scale score: 11 Additional HPI information: HPI: Ms. Gillis returns for follow up of the sleep study (a manual CPAP titration study) she had on 03/02/2019. The polysomnography showed that CPAP was initiated at 5 cmH2O and titrated up to CPAP at 10 cmH2O. CPAP at 9 cmH2O appeared to be optimal (AHI of 1.7 per hour on the pressure). There was supine sleep on the pressure. Oxygen saturation was normal throughout the night. Lower CPAP settings appeared adequate as well. The patient tolerated positive airway pressure therapy well. The patients sleep efficiency was slightly reduced due to a prolonged awakening in the first half of the night.. The sleep architecture was abnormal for sleep fragmentation and reduced amount of time spent in REM sleep. There was mild periodic leg movement of sleep contributing to the sleep fragmentation. Cardiac rhythm was normal sinus rhythm without significant arrhythmia. No abnormal behavior (parasomnia) observed during the night. The patient was informed of these findings. The patient has not yet been started on the positive airway pressure therapy. She tried using a CPAP long time ago but quit because of claustrophobia. She had to wear a mask at that time. Allergies and Home Medications Drug allergies reviewed: Yes Home medication list reviewed: Yes Review of Systems Review of systems same as previous: Yes Physical Exam Height: 5 ft 4 in Weight: 234 lb Body Mass Index: 40.1 BMI Classification: Obesity Class 3 Impression and Plan IMPRESSION: 1. Obstructive Sleep Apnea-Hypopnea Syndrome, moderate, adequately controlled with CPAP of 9 cmH2O. Based on the titration study, I will set the pressure at 5 - 10 cmH2O. I anticipate good treatment compliance. PLAN: 1. Prescription made for an autoCPAP, heated humidifier, and related supplies. 2. Attempt to lose weight. 3. Return for follow up after one month on the treatment. I spent 100% of this visit face to face with the patient with greater than 50% of this was spent time counseling the patient and coordination of care.
== END 2019-03-19 11:06 | disposition home or self-care (01) ==
LOC: SC 11:05
PROVIDERS: ATTEND Internal Medicine Pulmonary Disease
DX: G47.33 Obstructive sleep apnea (adult) (pediatric) (principal); E66.9 Obesity, unspecified; Z68.41 Body mass index [BMI] 40.0-44.9, adult
CPT/HCPCS: 99213; G0463; 99212

== ENCOUNTER 2019-05-04 21:29 | Emergency (ER) | payer MEDICARE, OTHER, MEDICAID ==
--- NOTE | 2019-05-04 21:41 | ED Physician Documentation ---
PD HPI URI - Stated complaint Stated Complaint: COUGH/CONGESTION - Chief complaint Chief Complaint: General - History obtained from History obtained from: Patient - History of Present Illness Timing - onset: Yesterday Timing details: Gradual onset Associated symptoms: Nasal congestion, Dry cough, Other (throwing up in my mouth all day). No: Fever Similar symptoms before: Diagnosis (right ear infection) Recently seen: Clinic (saw PMD yesterday, rx drops for right ear, waiting for pharmacy to have them in stock) Review of Systems Constitutional: denies: Fever Cardiac: reports: Reviewed and negative Respiratory: reports: Cough. denies: Dyspnea GI: reports: Nausea, Vomiting. denies: Abdominal Pain : denies: Dysuria, Frequency PD PAST MEDICAL HISTORY - Past Medical History Cardiovascular: Hypertension, High cholesterol Respiratory: Asthma Neuro: Multiple sclerosis Endocrine/Autoimmune: Type 2 diabetes GI: None VISCOSITY INSPECTOR: None : Incontinence HEENT: None Psych: Depression, Anxiety Musculoskeletal: Osteoarthritis, Chronic back pain Derm: None - Past Surgical History Past Surgical History: Yes Ortho: Knee replacement /VISCOSITY INSPECTOR: Dilation and currettage, Tubal ligation HEENT: Tonsil/Adenoidectomy - Present Medications Home Medications: Ambulatory Orders Medication Instructions Recorded Confirmed Levothyroxine Sodium 112 mcg PO DAILY 06/06/12 07/02/18 Multivitamin [Multiple Vitamins] 1 each PO DAILY PRN 06/06/12 07/02/18 Omeprazole [PriLOSEC] 40 mg PO DAILY 02/25/13 07/02/18 Oxycodone HCl/Acetaminophen 1 each PO Q4H PRN #20 tablet 11/14/13 07/02/18 [Percocet 10-325 mg Tablet] Ketorolac [Toradol] 10 mg PO PRN PRN 05/04/15 07/02/18 Albuterol Sulf [Ventolin Hfa 1 - 2 puffs INH Q4HR PRN 04/16/16 07/02/18 Inhaler] Montelukast [Singulair] 10 mg PO QPM 04/16/16 07/02/18 Atorvastatin [Lipitor] 20 mg PO DAILY 03/12/17 07/02/18 Quetiapine Fumarate [Seroquel] 1 tab PO DAILY 03/12/17 07/02/18 Fremanezumab-Vfrm [Ajovy] 07/02/18 Levocetirizine Dihydrochloride 5 mg ORAL DAILY 07/02/18 07/02/18 metFORMIN [Glucophage] 1 tab ORAL BID 07/02/18 07/02/18 predniSONE [Prednisone] 40 mg PO DAILY #6 tablet 07/02/18 Prochlorperazine [Compazine] 10 mg PO Q6H PRN #10 tablet 08/10/18 - Allergies Allergies/Adverse Reactions: Allergies Allergy/AdvReac Type Severity Reaction Status Date / Time strawberry [[place]] Allergy Severe Rash Verified 07/02/18 17:33 clindamycin Allergy Intermediate Emesis Verified 05/04/19 21:33 sulfamethoxazole Allergy Mild Rash Verified 05/04/19 21:33 [From Septra] trimethoprim [From Septra] Allergy Mild Rash Verified 05/04/19 21:33 adhesive tape Allergy Rash Verified 05/04/19 21:33 butorphanol tartrate * Allergy Hives Verified 05/04/19 21:33 [From Stadol] codeine Allergy Hives Verified 05/04/19 21:33 doxycycline Allergy Hives Verified 05/04/19 21:33 erythromycin lactobionate * Allergy Hives Verified 05/04/19 21:33 [From Erythrocin] hydromorphone HCl * Allergy Hives Verified 05/04/19 21:33 [From Dilaudid] meperidine HCl * Allergy Hives Verified 05/04/19 21:33 [From Demerol] NSAIDS (Non-Steroidal Allergy Hives Verified 05/04/19 21:33 Anti-Inflamma Penicillins Allergy Hives Verified 05/04/19 21:33 pregabalin [From Lyrica] Allergy Hives Verified 05/04/19 21:33 simvastatin [From Zocor] Allergy Hives Verified 05/04/19 21:33 sumatriptan [From Imitrex] Allergy Hives Verified 05/04/19 21:33 sumatriptan succinate * Allergy Hives Verified 05/04/19 21:33 [From Imitrex] vilazodone HCl * Allergy Unknown Verified 05/04/19 21:33 [From Viibryd] vortioxetine hydrobromide * Allergy Anxiety Verified 05/04/19 21:33 [From Trintellix] morphine AdvReac Headache Verified 05/04/19 21:33 [place] Allergy Severe Respiratory Uncoded 05/04/19 21:33 - Social History Does the pt smoke?: No Smoking Status: Never smoker Does the pt drink ETOH?: No Does the pt have substance abuse?: No - Immunizations Immunizations are current?: Yes Immunizations: TDAP current <10years - POLST Patient has POLST: No PD ED PE NORMAL - Vitals Vital signs reviewed: Yes - General General: Alert and oriented X 3, No acute distress, Well developed/nourished - HEENT HEENT: Ears normal (myringotomy tube right TM), Moist mucous membranes, Pharynx benign - Neck Neck: Supple, no meningeal sign, No JVD - Cardiac Cardiac: RRR, No murmur - Respiratory Respiratory: No respiratory distress, Clear bilaterally - Derm Derm: No rash Results - Vitals Vitals: Oxygen O2 Source Room air - Rads (name of study) chest xray Radiology: Prelim report reviewed, See rad report PD MEDICAL DECISION MAKING - ED course Complexity details: reviewed results, re-evaluated patient, considered differential, d/w patient Departure - Departure Disposition: 01 Home, Self Care Clinical Impression: Bronchitis Condition: Good Instructions: ED Upper Resp Infec No Abx Tx Follow-Up: Kyle Delaney PA-C [Primary Care Provider] - Discharge Date/Time: 05/04/19 23:15
[2019-05-04] MEDS ORDERED: ONDANSETRON ODT 4 MG TABLET TL STA (22:39)
--- NOTE | 2019-05-04 22:54 | XRAY Report ---
Reason: cough, congestion Procedure Date: 05/04/2019 Accession Number: [id number] / [id number] Procedure: XR - Chest 2 View X-Ray CPT Code: 34494 Final Report FULL RESULT: EXAM: CHEST RADIOGRAPHY EXAM DATE: 05/04/2019 10:09 PM. CLINICAL HISTORY: Cough, congestion. COMPARISON: RIBS 2 VIEW RT 08/31/2017 10:02 AM CHEST 2 VIEW PA/LAT 02/24/2016 10:42 AM. TECHNIQUE: 2 views. FINDINGS: Lungs/Pleura: Small calcified pulmonary nodule at the right lower lung, unchanged. No consolidation, airspace disease, pleural effusion or pneumothorax. Mediastinum: Heart and mediastinal contours are unremarkable. Other: Cervical spine fusion hardware. Thoracic neurostimulator leads. IMPRESSION: No acute cardiopulmonary disease seen. RADIA
[2019-05-04 23:15] VITALS: BP 136/84
== END 2019-05-04 23:15 | disposition home or self-care (01) ==
LOC: ED 21:29
DX: J40 Bronchitis, not specified as acute or chronic (principal); H66.91 Otitis media, unspecified, right ear; I10 Essential (primary) hypertension; E78.00 Pure hypercholesterolemia, unspecified; E11.9 Type 2 diabetes mellitus without complications; F32.9 Major depressive disorder, single episode, unspecified; F41.9 Anxiety disorder, unspecified
CPT/HCPCS: 71046; 99283; 99284; Q0162

== ENCOUNTER 2019-05-09 16:28 | Outpatient (CLI) | payer MEDICARE, OTHER, MEDICAID | END 2019-05-09 16:29 | disposition critical access hospital (66) | LOC: EMS 16:28 | PROVIDERS: ATTEND Surgery | DX: M25.571 Pain in right ankle and joints of right foot (principal); M79.651 Pain in right thigh; M79.621 Pain in right upper arm; W19.XXXA Unspecified fall, initial encounter; Y92.038 Other place in apartment as the place of occurrence of the external cause | CPT/HCPCS: A0425; A0429 ==

== ENCOUNTER 2019-05-09 16:48 | Emergency (ER) | payer MEDICARE, OTHER, MEDICAID ==
[2019-05-09 17:14] LABS: BASOPHILS # (AUTO) 0.1 10^3/uL (0.0-0.1); BASOPHILS % (AUTO) 1.1 %; EOSINOPHILS # (AUTO) 0.3 10^3/uL (0.0-0.7); EOSINOPHILS % (AUTO) 3.4 %; HGB - HEMOGLOBIN 11.7 g/dL (12.0-16.0); LYMPHOCYTES # (AUTO) 1.9 10^3/uL (1.5-3.5); LYMPHOCYTES % (AUTO) 25.7 %; MEAN CORPUSCULAR HEMOGLOBIN 28.5 pg (27.0-31.0); MEAN CORPUSCULAR HGB CONC 31.3 g/dL (32.0-36.0); MONOCYTES # (AUTO) 0.5 10^3/uL (0.0-1.0); MONOCYTES % (AUTO) 6.9 %; NEUTROPHILS # (AUTO) 4.6 10^3/uL (1.5-6.6); NEUTROPHILS % (AUTO) 62.6 %; PLT - PLATELET COUNT 174 10^3/uL (130-450); RED BLOOD COUNT 4.11 10^6/uL (4.20-5.40); RED CELL DISTRIBUTION WIDTH 14.7 % (12.0-15.0); WHITE BLOOD COUNT 7.4 x10^3/uL (4.8-10.8)
--- NOTE | 2019-05-09 17:14 | ED Physician Documentation ---
History of Present Illness - Stated complaint Stated Complaint: GLF - Chief complaint Chief Complaint: Neuro - History obtained from History obtained from: Patient, EMS (Mrs. Carver is a 63-year-old female with a history of diabetes, hypothyroidism, conversion disorder, chronic pain, and multiple medication allergies.She is apparently found down in her home by neighbors and was confused. She was found with parts of a shelf on top of her weighing approximately 15 pounds.She was last seen outside of her house 15 minutes prior to this incident.She states she does not recall the events that occurred.She has no history of prior stroke or cardiopulmonary disease.Denies any preceding symptoms including headaches, dizziness, vision changes, focal deficits, chest pain, palpitations, dyspnea, or abdominal pain. Said no recent illnesses. Denies any sinus congestion, fevers, aches, chills, abdominal pain, nausea, vomiting, diarrhea, or urinary complaints. She has mild right shoulder pain, right hip pain, increased neck pain, and right pelvis pain. She also has right ankle pain. She has full range of motion of all her extremities without any skin changes. There are no gross deformities.) Review of Systems Constitutional: denies: Fever, Chills, Myalgias, Fatigue, Weight Loss, Sweats Eyes: denies: Loss of vision, Decreased vision, Photophobia Ears: denies: Loss of hearing, Ear pain, Drainage/discharge, Tinnitus/ringing, Foreign body, Reviewed and negative Nose: denies: Rhinorrhea / runny nose Throat: denies: Dental pain / toothache, Sore throat, Swollen tonsils Cardiac: denies: Chest pain / pressure, Palpitations, Pedal edema, Calf pain Respiratory: denies: Dyspnea, Cough, Hemoptysis, Wheezing GI: denies: Abdominal Pain, Nausea, Vomiting, Constipation, Diarrhea Musculoskeletal: reports: Neck pain, Extremity pain. denies: Back pain, Joint swelling Neurologic: reports: Confused. 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 : Incontinence HEENT: None Psych: Depression, Anxiety Musculoskeletal: Osteoarthritis, Chronic back pain Derm: None - Past Surgical History Past Surgical History: Yes Ortho: Knee replacement /SENIOR ASSISTANT MANAGER: Dilation and currettage, Tubal ligation HEENT: Tonsil/Adenoidectomy - Present Medications Home Medications: Ambulatory Orders Medication Instructions Recorded Confirmed Levothyroxine Sodium 112 mcg PO DAILY 06/06/12 07/02/18 Multivitamin [Multiple Vitamins] 1 each PO DAILY PRN 06/06/12 07/02/18 Omeprazole [PriLOSEC] 40 mg PO DAILY 02/25/13 07/02/18 Oxycodone HCl/Acetaminophen 1 each PO Q4H PRN #20 tablet 11/14/13 07/02/18 [Percocet 10-325 mg Tablet] Ketorolac [Toradol] 10 mg PO PRN PRN 05/04/15 07/02/18 Albuterol Sulf [Ventolin Hfa 1 - 2 puffs INH Q4HR PRN 04/16/16 07/02/18 Inhaler] Montelukast [Singulair] 10 mg PO QPM 04/16/16 07/02/18 Atorvastatin [Lipitor] 20 mg PO DAILY 03/12/17 07/02/18 Quetiapine Fumarate [Seroquel] 1 tab PO DAILY 03/12/17 07/02/18 Fremanezumab-Vfrm [Ajovy] 07/02/18 Levocetirizine Dihydrochloride 5 mg ORAL DAILY 07/02/18 07/02/18 metFORMIN [Glucophage] 1 tab ORAL BID 07/02/18 07/02/18 predniSONE [Prednisone] 40 mg PO DAILY #6 tablet 07/02/18 Prochlorperazine [Compazine] 10 mg PO Q6H PRN #10 tablet 08/10/18 - Allergies Allergies/Adverse Reactions: Allergies Allergy/AdvReac Type Severity Reaction Status Date / Time strawberry [Lindrith] Allergy Severe Rash Verified 05/09/19 16:59 clindamycin Allergy Intermediate Emesis Verified 05/09/19 16:59 sulfamethoxazole Allergy Mild Rash Verified 05/09/19 16:59 [From Septra] trimethoprim [From Septra] Allergy Mild Rash Verified 05/09/19 16:59 adhesive tape Allergy Rash Verified 05/09/19 16:59 butorphanol tartrate * Allergy Hives Verified 05/09/19 16:59 [From Stadol] codeine Allergy Hives Verified 05/09/19 16:59 doxycycline Allergy Hives Verified 05/09/19 16:59 erythromycin lactobionate * Allergy Hives Verified 05/09/19 16:59 [From Erythrocin] hydromorphone HCl * Allergy Hives Verified 05/09/19 16:59 [From Dilaudid] meperidine HCl * Allergy Hives Verified 05/09/19 16:59 [From Demerol] NSAIDS (Non-Steroidal Allergy Hives Verified 05/09/19 16:59 Anti-Inflamma Penicillins Allergy Hives Verified 05/09/19 16:59 pregabalin [From Lyrica] Allergy Hives Verified 05/09/19 16:59 simvastatin [From Zocor] Allergy Hives Verified 05/09/19 16:59 sumatriptan [From Imitrex] Allergy Hives Verified 05/09/19 16:59 sumatriptan succinate * Allergy Hives Verified 05/09/19 16:59 [From Imitrex] vilazodone HCl * Allergy Unknown Verified 05/09/19 16:59 [From Viibryd] vortioxetine hydrobromide * Allergy Anxiety Verified 05/09/19 16:59 [From Trintellix] morphine AdvReac Headache Verified 05/09/19 16:59 [place] Allergy Severe Respiratory Uncoded 05/09/19 16:59 - Social History Does the pt smoke?: No Smoking Status: Never smoker Does the pt drink ETOH?: No Does the pt have substance abuse?: No - Immunizations Immunizations are current?: Yes Immunizations: TDAP current <10years - POLST Patient has POLST: No PD ED PE NORMAL - Vitals Vital signs reviewed: Yes - General General: Alert and oriented X 3, No acute distress, Well developed/nourished - HEENT HEENT: Atraumatic - Neck Neck: Supple, no meningeal sign, Other (Patient arrived in C-spine precautions. She is wearing a c-collar. There is no tenderness to palpation at the midline. No vertebral step-off.) - Cardiac Cardiac: RRR, No murmur, No gallop - Respiratory Respiratory: No respiratory distress, Clear bilaterally - Abdomen Abdomen: No: Normal bowel sounds - Back Back: No CVA TTP - Derm Derm: Normal color - Extremities Extremities: No deformity, No edema, Other (She is diffusely tender at the right shoulder and proximal humerus. She has full range of motion of the right shoulder. No crepitus or laxity is appreciated. She is mildly tender to deep palpation of the right lateral hip. She is able to externally rotate and internally rotate her right hip. No crepitus is appreciated. She is diffusely tender in the right ankle. No edema, crepitus, or joint laxity is appreciated.) - Neuro Neuro: Alert and oriented X 3, lawn mower 2-12 intact, No motor deficit, No sensory deficit, Normal speech Eye Opening: Spontaneous Motor: Obeys Commands Verbal: Oriented GCS Score: 15 Results - Vitals Vitals: Vital Signs - 24 hr 05/09/19 16:52 Temperature 37.1 C Heart Rate 94 Respiratory 13 Rate Blood Pressure 120/94 H O2 Saturation 98 Oxygen O2 Source Room air - Labs Labs: Laboratory Tests 05/09/19 05/09/19 05/09/19 17:06 17:06 17:06 WBC 7.4 RBC 4.11 L Hgb 11.7 L Hct 37.4 MCV 91.0 MCH 28.5 MCHC 31.3 L RDW 14.7 Plt Count 174 MPV 10.0 Neut # (Auto) 4.6 Lymph # (Auto) 1.9 [place] # (Auto) 0.5 Eos # (Auto) 0.3 Baso # (Auto) 0.1 Absolute Nucleated RBC 0.00 Nucleated RBC % 0.0 Sodium 137 Potassium 3.7 Chloride 105 Carbon Dioxide 22 Anion Gap 10.0 BUN 20 Creatinine 0.7 Estimated GFR (MDRD) 85 L Glucose 96 Calcium 8.5 Total Bilirubin 0.4 AST 16 ALT 17 Alkaline Phosphatase 99 Troponin I High Sens < 2.3 L Total Protein 6.9 Albumin 3.9 Globulin 3.0 Albumin/Globulin Ratio 1.3 Ethyl Alcohol 05/09/19 17:22 WBC RBC Hgb Hct MCV MCH MCHC RDW Plt Count MPV Neut # (Auto) Lymph # (Auto) [place] # (Auto) Eos # (Auto) Baso # (Auto) Absolute Nucleated RBC Nucleated RBC % Sodium Potassium Chloride Carbon Dioxide Anion Gap BUN Creatinine Estimated GFR (MDRD) Glucose Calcium Total Bilirubin AST ALT Alkaline Phosphatase Troponin I High Sens Total Protein Albumin Globulin Albumin/Globulin Ratio Ethyl Alcohol < 5.0 PD MEDICAL DECISION MAKING - ED course Complexity details: reviewed results (Reviewed radiographs and agree with radiology.Results were discussed in detail with the patient.), re-evaluated patient (Patient is self ambulating in the emergency room without assistance.), considered differential, d/w patient (Test results were discussed in detail. Patient remained nontoxic-appearing and in no distress throughout the ER course. I do believe she can be safely discharged from the emergency room at this time. She is asked to contact her primary care provider to schedule a follow-up appointment. Return to emergency room as needed for any emergent changes or concerns.) Departure - Departure Disposition: 01 Home, Self Care Clinical Impression: Separation of right acromioclavicular joint Condition: Stable Instructions: ED Strain Muscle Ext, ED Contusion Upper Extr Ch Comments: Apply a frequent cold compress over The front of your right shoulder. Continue your current pain medications. Contact your primary care provider to schedule close follow-up appointment. Please return emergency room as needed for any emergent changes or concerns.
[2019-05-09 17:29] LABS: ALBUMIN 3.9 g/dL (3.2-5.5); ALBUMIN/GLOBULIN RATIO 1.3 (1.0-2.2); BILIRUBIN,TOTAL 0.4 mg/dL (0.2-1.0); CALCIUM 8.5 mg/dL (8.5-10.3); CREATININE 0.7 mg/dL (0.4-1.0); TOTAL PROTEIN 6.9 g/dL (6.7-8.2)
--- NOTE | 2019-05-09 17:45 | CT Report ---
Reason: LOC Procedure Date: 05/09/2019 Accession Number: [id number] / [id number] Procedure: CT - HEAD WO CPT Code: Final Report FULL RESULT: EXAM: CT HEAD EXAM DATE: 05/09/2019 05:25 PM. CLINICAL HISTORY: LOC. COMPARISON: HEAD W/O 12/24/2015 8:50 PM. TECHNIQUE: Multiaxial CT images were obtained from the foramen magnum to the vertex. Reformats: Sagittal and coronal. IV contrast: None. In accordance with CT protocol optimization, one or more of the following dose reduction techniques were utilized for this exam: automated exposure control, adjustment of mA and/or KV based on patient size, or use of iterative reconstructive technique. FINDINGS: Parenchyma: No intraparenchymal hemorrhage. No evidence of mass, midline shift, or CT findings of acute infarction. Hernandez-white differentiation is distinct. Diffuse chronic microangiopathic white matter changes are evident. Extraaxial Spaces: Normal for age. No subdural or epidural collections identified. Ventricles: The ventricles and cortical sulci are enlarged, consistent with age-related tissue loss. Sinuses and orbits: Imaged paranasal sinuses, orbits, and mastoids show no significant abnormality. Bones: No evidence of fracture or calvarial defect. Other: None. IMPRESSION: Generalized age-related cortical atrophic changes without evidence of acute intracranial abnormality. RADIA
--- NOTE | 2019-05-09 18:04 | CT Report ---
Reason: pain Procedure Date: 05/09/2019 Accession Number: [id number] / [id number] Procedure: CT - CERVICAL SPINE WO CPT Code: Final Report FULL RESULT: EXAM: CT CERVICAL SPINE WITHOUT CONTRAST DATE: 05/09/2019 05:25 PM. HISTORY: Pain. COMPARISONS: HEAD W/O 12/24/2015 8:50 PM. TECHNIQUE: Thin-section axial images were acquired of the cervical spine without contrast. Post-processing: Coronal and sagittal reformats. Other: None. In accordance with CT protocol optimization, one or more of the following dose reduction techniques were utilized for this exam: automated exposure control, adjustment of mA and/or KV based on patient size, or use of iterative reconstructive technique. FINDINGS: Alignment: No scoliosis or spondylolisthesis. Bones: No fracture or bone lesion. Interspace Levels/Facets: C1-C2: Unremarkable. C2-C3: Unremarkable. C3-C4: Anterior cervical fusion without evidence of hardware failure or loosening. C4-C5: Bony fusion. C5-C6: Bony fusion. C6-C7: Anterior cervical fusion. C7-T1: Unremarkable. Musculature: Normal. No fatty atrophy. Other: The paravertebral and prevertebral soft tissues are unremarkable. The lung apices are clear. IMPRESSION: 1. Anterior cervical fusion without evidence of hardware failure or loosening at C3-C4 and C6-C7. 2. Bony fusion of C4-C5 and C5-C6. RADIA
--- NOTE | 2019-05-09 18:09 | XRAY Report ---
Reason: pain Procedure Date: 05/09/2019 Accession Number: [id number] / [id number] Procedure: XR - Humerus RT CPT Code: Final Report FULL RESULT: EXAM: RIGHT HUMERUS RADIOGRAPHY EXAM DATE: 05/09/2019 05:14 PM. CLINICAL HISTORY: Pain. COMPARISON: None. TECHNIQUE: 2 views. FINDINGS: Bones: Normal. No fractures or bone lesions. Joints: Abnormal widening of the acromioclavicular joint measuring 15 mm (normal 5 mm or less) Soft Tissues: Normal. No soft tissue swelling. IMPRESSION: Abnormal widening of the acromioclavicular joint. RADIA
--- NOTE | 2019-05-09 18:11 | XRAY Report ---
Reason: pain Procedure Date: 05/09/2019 Accession Number: [id number] / [id number] Procedure: XR - Ankle 2 View RT CPT Code: Final Report FULL RESULT: EXAM: RIGHT ANKLE RADIOGRAPHY EXAM DATE: 05/09/2019 05:14 PM. CLINICAL HISTORY: Pain. COMPARISON: None. TECHNIQUE: 2 views. FINDINGS: Bones: Normal. No fractures or bone lesions. Joints: Mild degenerative changes in the medial and lateral aspect of the ankle.. Soft Tissues: Normal. No soft tissue swelling. IMPRESSION: 1. Mild degenerative changes in the medial and lateral aspect of the ankle. 2. No fracture identified. RADIA
--- NOTE | 2019-05-09 18:11 | XRAY Report ---
Reason: pain Procedure Date: 05/09/2019 Accession Number: [id number] / [id number] Procedure: XR - Pelvis 1 View CPT Code: Final Report FULL RESULT: EXAM: PELVIS RADIOGRAPHY EXAM DATE: 05/09/2019 05:14 PM. CLINICAL HISTORY: Trauma, Pain. COMPARISON: HIP W/PELVIS 2-3V LT 07/17/2018 3:13 PM. TECHNIQUE: 1 view. FINDINGS: No acute fracture visualized. No hip joint dislocation. Mild to moderate degenerative changes of the hip joints. The sacroiliac joints and pubic symphysis are unremarkable. IMPRESSION: No acute findings. RADIA
--- NOTE | 2019-05-09 18:13 | XRAY Report ---
Reason: right sided pain Procedure Date: 05/09/2019 Accession Number: [id number] / [id number] Procedure: XR - Chest 1 View X-Ray CPT Code: 79769 Final Report FULL RESULT: EXAM: CHEST RADIOGRAPHY EXAM DATE: 05/09/2019 05:31 PM. CLINICAL HISTORY: Trauma, Right sided pain. COMPARISON: CHEST 2 VIEW 05/04/2019 10:03 PM. TECHNIQUE: 1 view. FINDINGS: Lungs/Pleura: No focal opacities evident. No pleural effusion. No pneumothorax. Mediastinum: Within exam limitations, the cardiomediastinal contour is normal. Other: ECG leads overlie the chest. Spinal stimulator and cervical fusion hardware noted. IMPRESSION: No acute findings. RADIA
[2019-05-09 18:21] VITALS: BP 126/82
[2019-05-09 18:23] LABS: MUDS CUTOFF CONCENTRATIONS CUTOFF CONC BELOW:
[2019-05-09 18:35] LABS: AMPHETAMINE SCREEN,URINE NEGATIVE (NEGATIVE); BENZODIAZEPINES SCREEN, URINE NEGATIVE (NEGATIVE); COCAINE SCREEN URINE NEGATIVE (NEGATIVE); METHADONE SCREEN, URINE NEGATIVE (NEGATIVE); METHAMPHETAMINES SCREEN, URINE NEGATIVE (NEGATIVE); OPIATE SCREEN, URINE NEGATIVE (NEGATIVE); OXYCODONE SCREEN, URINE POSITIVE (NEGATIVE); PROPOXYPHENE SCREEN, URINE NEGATIVE (NEGATIVE); TRICYCLIC ANTIDEPRESSANT,URINE POSITIVE (NEGATIVE)
== END 2019-05-09 18:38 | disposition home or self-care (01) ==
LOC: EDUNIT# → ED 16:48
DX: S43.101A Unspecified dislocation of right acromioclavicular joint, initial encounter (principal); W18.30XA Fall on same level, unspecified, initial encounter; Y92.009 Unspecified place in unspecified non-institutional (private) residence as the place of occurrence of the external cause; I10 Essential (primary) hypertension; G35 Multiple sclerosis; E11.9 Type 2 diabetes mellitus without complications; Z79.84 Long term (current) use of oral hypoglycemic drugs
CPT/HCPCS: 36415; 70450; 71045; 72125; 72170; 80053; 80306; 80320; 84484; 85025; 99284

== ENCOUNTER 2019-05-14 11:27 | Outpatient (CLI) | payer MEDICARE, OTHER, MEDICAID ==
--- NOTE | 2019-05-14 13:16 | XRAY Report ---
Reason: LUMBAR RADICULOPATHY,LT KNEE JOINT PAIN Procedure Date: 05/14/2019 Accession Number: [id number] / [id number] Procedure: XR - Lumbar Spine Complete CPT Code: Final Report FULL RESULT: EXAM: LUMBOSACRAL SPINE RADIOGRAPHY EXAM DATE: 05/14/2019 11:51 AM. CLINICAL HISTORY: LUMBAR RADICULOPATHY, LT KNEE JOINT PAIN. COMPARISONS: LUMBAR SPINE 2 VIEW 04/13/2015 8:37 PM ABDOMEN/PELVIS W/O 03/02/2016 9:38 AM. TECHNIQUE: 5 views. FINDINGS: Alignment: Mild rightward curvature from L3-L5. Bones: Five [id number] lumbar vertebral bodies are present. Vertebral body heights preserved. No evidence of fracture. Disks: There is disk height loss at all lumbar levels. There is endplate osteophytosis with osteophytes noted extending laterally and anteriorly. Facets: Moderate facet hypertrophy at L4-L5 and L5-S1. Sacroiliac Joints: Unremarkable. Soft Tissues: There was note of a spinal cord stimulator device with leads entering posterior aspect of the central canal at T12-L1 level. IMPRESSION: 1. Interval placement of spinal cord stimulator. New pig graft 2. Otherwise unchanged multilevel moderate disk height loss and lower lumbar facet hypertrophy . RADIA
--- NOTE | 2019-05-15 02:34 | XRAY Report ---
Reason: LUMBAR RADICULOPATHY,LT KNEE JOINT PAIN Procedure Date: 05/14/2019 Accession Number: [id number] / [id number] Procedure: XR - Knee 3 View LT CPT Code: Final Report FULL RESULT: EXAM: LEFT KNEE RADIOGRAPHY EXAM DATE: 05/14/2019 11:51 AM. CLINICAL HISTORY: LUMBAR RADICULOPATHY, LT KNEE JOINT PAIN. COMPARISON: KNEE 3 VIEW LT 08/03/2017 8:59 AM. TECHNIQUE: 3 views. FINDINGS: Bones: No fractures or bone lesions. Joints: Left knee arthroplasty. No subluxation or dislocation. Soft Tissues: Mild anterior knee swelling. Small corticated osseous fragments in suprapatellar region and at anterior knee joint space. IMPRESSION: 1. Left knee arthroplasty without evidence of acute fracture or hardware failure. 2. Mild anterior knee swelling. 3. Small corticated osseous fragments at anterior joint space and suprapatellar region. RADIA
== END 2019-05-14 11:28 | disposition home or self-care (01) ==
LOC: DI 11:27
PROVIDERS: ATTEND Family Medicine
DX: M47.816 Spondylosis without myelopathy or radiculopathy, lumbar region (principal); M47.817 Spondylosis without myelopathy or radiculopathy, lumbosacral region; M51.36 Other intervertebral disc degeneration, lumbar region; M51.37 Other intervertebral disc degeneration, lumbosacral region
CPT/HCPCS: 72110

== ENCOUNTER 2019-06-19 15:33 | Outpatient (CLI) | payer MEDICARE, OTHER, MEDICAID ==
--- NOTE | 2019-06-19 15:19 | SLEEP CARE CONSULTATION ---
Information from patient questionnaire entered by Guerita Last. I have reviewed and concur with the information entered by Guerita Last. This document represents the service I personally performed and the decisions made by me, Mickie Singleton, RN, MSN, EQUIPMENT OR MACHINERY CLEANER. History of Present Illness Service Date and Time: 06/19/2019 1500 Previous diagnosis: Moderate, Obstructive Sleep Apnea-Hypopnea Syndrome AHI: 19.7 Reason for follow up: first compliance Equipment type: CPAP Equipment obtained from: [facility] (getting supplies as needed) Mask style: Nasal Backup mask available: No (keep current mask when replaced for spare) Last cushion change: ordered CPAP Compliance Data - Data Reviewed with Patient Average duration of nightly device use: 6.8 Compliance rate %: 70 Current pressure setting (cmH2O): 5-10 Humidity settin Heated hose settin Average residual AHI: 3.7 Average large leak: 5 min 28 sec Subjective Patient concerns: reports: mask leak noise (only when lying on side but less since used a different), condensation in mask/hose (resolved with adjustment of heated hose / humidity), nasal congestion (resolved with adjusting settings). denies: aerophagia, mask discomfort, air blowing in eyes, dry mouth, nose, throat, epistaxis, other Observed to snore while using device: No Current pressure setting perceived as: comfortable On therapy, patient: reports: sleeping better. denies: awakening more refreshed, being more awake and alert during the day, more rested overall (no because of recent TIA ), drowsiness while driving (does not drive) Initial [place] Sleepiness Scale score: 15 Allergies and Home Medications Home medication list reviewed: No (ASA 81 mg added) Review of Systems Review of systems same as previous: No (TIA May 17 with increase of fatigue) Physical Exam Height: 5 ft 4 in Weight: 238 lb (home weight) Body Mass Index: 40.8 BMI Classification: Morbidly Obese Impression and Plan 1. Obstructive Sleep Apnea-Hypopnea Syndrome, moderate, with good treatment compliance and good apnea control. On CPAP therapy, the patient has better sleep quality and is more rested overall. Patient is very pleased with benefit of treatment with significant improvement of sleep. She tried CPAP once before in past but unable to tolerate and is pleased with new CPAP device and mask updates. However, she has had increased fatigue since a TIA last month that she states was caused by her conversion reaction disorder. Patient's apnea severity and rationale for treatment to reduce apnea, improve sleep quality and reduce cardiovascular and cerebrovascular events was reviewed. I also reviewed the benefit of consistent device use of CPAP for hypertension, cerebrovascular disease. * Continue auto CPAP pressure at 5-10 cmH2O * Notify me if snoring with mask or feeling that the pressure is too much or too little * Attempt to lose weight * Call this office if any problems using CPAP * Return for follow up in 3 months , or sooner if concerns arise Visit Type: Telehealth Phone Patient Location: Home Location of Provider: Home Patient agrees and consents to this telehealth visit type: Yes Patient agrees to have their insurance billed: Yes Time Spent with Patient (minutes): 10 Provider Statement: I spent 100% of the Telehealth Phone Call with the patient with greater than 50% spent counseling the patient and coordination of care.
== END 2019-06-19 15:34 | disposition home or self-care (01) ==
LOC: SC 15:33
PROVIDERS: ATTEND Nurse Practitioner Family
DX: G47.33 Obstructive sleep apnea (adult) (pediatric) (principal); E66.01 Morbid (severe) obesity due to excess calories; Z68.41 Body mass index [BMI] 40.0-44.9, adult

== ENCOUNTER 2019-08-31 16:58 | Emergency (ER) | payer MEDICARE, OTHER, MEDICAID ==
[2019-08-31] MEDS ORDERED: ASPIRIN CHEW 81 MG TABLET PO STA (17:36)
[2019-08-31] MEDS ORDERED: LORazepam 2 MG/ML VIAL IVP STA (17:36)
--- NOTE | 2019-08-31 17:40 | ED Physician Documentation ---
PD HPI CHEST PAIN - Stated complaint Stated Complaint: RAPID HR / SOA - Chief complaint Chief Complaint: Cardiac - History obtained from History obtained from: Patient - Additional information Additional information: 64-year-old woman with history of hypercholesterolemia presents with episodic chest pain. It started 5 days ago. There are generally nonexertional episodes that last about half an hour at a time. Substernal nonradiating chest pressure associated with shakiness and fatigue and shortness of breath. She denies pedal edema or calf pain. No history of heart disease. Now today she has had 2 episodes. One this morning lasting half an hour another starting in the waiting room. Neither started with exertion. 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 : Incontinence HEENT: None Psych: Depression, Anxiety Musculoskeletal: Osteoarthritis, Chronic back pain Derm: None - Past Surgical History Past Surgical History: Yes Ortho: Knee replacement /OIL RECOVERY UNIT OPERATOR: Dilation and currettage, Tubal ligation HEENT: Tonsil/Adenoidectomy - Present Medications Home Medications: Ambulatory Orders Medication Instructions Recorded Confirmed Levothyroxine Sodium 112 mcg PO DAILY 06/06/12 07/02/18 Multivitamin [Multiple Vitamins] 1 each PO DAILY PRN 06/06/12 07/02/18 Omeprazole [PriLOSEC] 40 mg PO DAILY 02/25/13 07/02/18 Oxycodone HCl/Acetaminophen 1 each PO Q4H PRN #20 tablet 11/14/13 07/02/18 [Percocet 10-325 mg Tablet] Ketorolac [Toradol] 10 mg PO PRN PRN 05/04/15 07/02/18 Albuterol Sulf [Ventolin Hfa 1 - 2 puffs INH Q4HR PRN 04/16/16 07/02/18 Inhaler] Montelukast [Singulair] 10 mg PO QPM 04/16/16 07/02/18 Atorvastatin [Lipitor] 20 mg PO DAILY 03/12/17 07/02/18 Quetiapine Fumarate [Seroquel] 1 tab PO DAILY 03/12/17 07/02/18 Fremanezumab-Vfrm [Ajovy] 07/02/18 Levocetirizine Dihydrochloride 5 mg ORAL DAILY 07/02/18 07/02/18 metFORMIN [Glucophage] 1 tab ORAL BID 07/02/18 07/02/18 predniSONE [Prednisone] 40 mg PO DAILY #6 tablet 07/02/18 Prochlorperazine [Compazine] 10 mg PO Q6H PRN #10 tablet 08/10/18 - Allergies Allergies/Adverse Reactions: Allergies Allergy/AdvReac Type Severity Reaction Status Date / Time strawberry [[place]] Allergy Severe Rash Verified 05/09/19 16:59 clindamycin Allergy Intermediate Emesis Verified 08/31/19 17:20 sulfamethoxazole Allergy Mild Rash Verified 08/31/19 17:20 [From Septra] trimethoprim [From Septra] Allergy Mild Rash Verified 08/31/19 17:20 adhesive tape Allergy Rash Verified 08/31/19 17:20 butorphanol tartrate * Allergy Hives Verified 08/31/19 17:20 [From Stadol] codeine Allergy Hives Verified 08/31/19 17:20 doxycycline Allergy Hives Verified 08/31/19 17:20 erythromycin lactobionate * Allergy Hives Verified 08/31/19 17:20 [From Erythrocin] hydromorphone HCl * Allergy Hives Verified 08/31/19 17:20 [From Dilaudid] meperidine HCl * Allergy Hives Verified 08/31/19 17:20 [From Demerol] NSAIDS (Non-Steroidal Allergy Hives Verified 08/31/19 17:20 Anti-Inflamma Penicillins Allergy Hives Verified 08/31/19 17:20 pregabalin [From Lyrica] Allergy Hives Verified 08/31/19 17:20 simvastatin [From Zocor] Allergy Hives Verified 08/31/19 17:20 sumatriptan [From Imitrex] Allergy Hives Verified 08/31/19 17:20 sumatriptan succinate * Allergy Hives Verified 08/31/19 17:20 [From Imitrex] vilazodone HCl * Allergy Unknown Verified 08/31/19 17:20 [From Viibryd] vortioxetine hydrobromide * Allergy Anxiety Verified 08/31/19 17:20 [From Trintellix] morphine AdvReac Headache Verified 08/31/19 17:20 [place] Allergy Severe Respiratory Uncoded 08/31/19 17:20 - Social History Does the pt smoke?: No Smoking Status: Never smoker Does the pt drink ETOH?: No Does the pt have substance abuse?: No - Immunizations Immunizations are current?: Yes Immunizations: TDAP current <10years - POLST Patient has POLST: No PD ED PE NORMAL - Vitals Vital signs reviewed: Yes - General General: Alert and oriented X 3, Other (Anxious and shaky) - HEENT HEENT: PERRL, EOMI - Neck Neck: Supple, no meningeal sign, No bony TTP - Cardiac Cardiac: RRR, No murmur - Respiratory Respiratory: No respiratory distress, Clear bilaterally - Abdomen Abdomen: Normal bowel sounds, Soft, Non tender - Back Back: No CVA TTP, No spinal TTP - Derm Derm: Normal color, Warm and dry - Extremities Extremities: Other (Left knee is in a chronic splint but there is no pedal edema or calf tenderness.) - Neuro Neuro: Alert and oriented X 3, Normal speech Results - Vitals Vitals: Vital Signs - 24 hr 08/31/19 08/31/19 17:14 17:19 Temperature 36.2 C L Heart Rate 109 H 98 Respiratory 28 H 20 Rate Blood Pressure 149/77 H 138/84 H O2 Saturation 963 H 98 Oxygen O2 Source Room air - EKG (time done) 1730 Rate: Rate (enter#) (99) Rhythm: NSR Compare to prior EKG: Other (Is quite a bit of artifact, it sinus rhythm, no clear ST elevation or depression, anterior flat T waves. Will need to be repeated in short order after some anxiolysis.) 1806 Rate: Rate (enter#) (104) Rhythm: Sinus tachycardia [place]: Normal Intervals: Normal [place] QRS: Normal Ischemia: Normal ST segments Computer interpretation: Agree with computer - Labs Labs: Laboratory Tests 08/31/19 08/31/19 08/31/19 17:36 17:36 17:36 WBC 6.4 RBC 4.31 Hgb 12.7 Hct 39.5 MCV 91.6 MCH 29.5 MCHC 32.2 RDW 13.3 Plt Count 195 MPV 9.6 Neut # (Auto) 4.2 Lymph # (Auto) 1.4 L [place] # (Auto) 0.5 Eos # (Auto) 0.2 Baso # (Auto) 0.1 Absolute Nucleated RBC 0.00 Nucleated RBC % 0.0 Sodium 139 Potassium 4.0 Chloride 108 Carbon Dioxide 23 Anion Gap 8.0 BUN 15 Creatinine 0.9 Estimated GFR (MDRD) 63 L Glucose 113 H Calcium 8.8 Total Bilirubin 0.4 AST 17 ALT 16 Alkaline Phosphatase 102 Troponin I High Sens < 2.3 L Total Protein 6.9 Albumin 4.0 Globulin 2.9 Albumin/Globulin Ratio 1.4 Lipase 30 - Rads (name of study) 1v chest Radiology: EMP read contemporaneously (NAD) PD MEDICAL DECISION MAKING - ED course ED course: Initial EKG with a lot of artifact and difficult to discern. Computer is reading ST elevation inferiorly, I do not appreciate it but will have to be repeated after some anxiolysis. Initial EKG was almost uninterpretable. It turns out she had a pain management vibrator device that once it was turned off it was easy to read the EKG which was without ischemic changes. Heart score 2 Departure - Departure Disposition: 01 Home, Self Care Clinical Impression: Atypical chest pain Condition: Good Record reviewed to determine appropriate education?: Yes Instructions: ED Chest Pain Atypical Unkn Cause Comments: Call your doctor to arrange a follow-up appointment, make the next available appointment. In the interim, return anytime if worse or if new symptoms develop.
[2019-08-31 17:42] LABS: BASOPHILS # (AUTO) 0.1 10^3/uL (0.0-0.1); BASOPHILS % (AUTO) 0.9 %; EOSINOPHILS # (AUTO) 0.2 10^3/uL (0.0-0.7); EOSINOPHILS % (AUTO) 2.8 %; HGB - HEMOGLOBIN 12.7 g/dL (12.0-16.0); LYMPHOCYTES # (AUTO) 1.4 10^3/uL (1.5-3.5); LYMPHOCYTES % (AUTO) 22.3 %; MEAN CORPUSCULAR HEMOGLOBIN 29.5 pg (27.0-31.0); MEAN CORPUSCULAR HGB CONC 32.2 g/dL (32.0-36.0); MEAN CORPUSCULAR VOLUME 91.6 fL (81.0-99.0); MEAN PLATELET VOLUME 9.6 fL (7.9-10.8); MONOCYTES # (AUTO) 0.5 10^3/uL (0.0-1.0); MONOCYTES % (AUTO) 7.6 %; NEUTROPHILS # (AUTO) 4.2 10^3/uL (1.5-6.6); NEUTROPHILS % (AUTO) 66.2 %; PLT - PLATELET COUNT 195 10^3/uL (130-450); RED BLOOD COUNT 4.31 10^6/uL (4.20-5.40); RED CELL DISTRIBUTION WIDTH 13.3 % (12.0-15.0); WHITE BLOOD COUNT 6.4 x10^3/uL (4.8-10.8)
[2019-08-31 17:55] LABS: ALBUMIN/GLOBULIN RATIO 1.4 (1.0-2.2); BILIRUBIN,TOTAL 0.4 mg/dL (0.2-1.0); CALCIUM 8.8 mg/dL (8.5-10.3); CREATININE 0.9 mg/dL (0.4-1.0); TOTAL PROTEIN 6.9 g/dL (6.7-8.2)
--- NOTE | 2019-08-31 18:50 | XRAY Report ---
PROCEDURE: Chest 1 View X-Ray INDICATIONS: cp TECHNIQUE: One view of the chest was acquired. COMPARISON: CXR 05/09/2019 FINDINGS: Surgical changes and devices: ACDF. Thecal stimulator leads. Lungs and pleura: No pleural effusions or pneumothorax. Lungs are clear. Mediastinum: Mediastinal contours appear normal. Heart size is normal. Bones and chest wall: No suspicious bony lesions. Overlying soft tissues appear unremarkable. IMPRESSION: No acute cardiopulmonary abnormality. Reviewed by: Isaak Fair MD on 08/31/2019 6:49 PM PDT Approved by: Isaak Fair MD on 08/31/2019 6:49 PM PDT Station ID: [id number]
[2019-08-31 19:22] VITALS: BP 144/90
== END 2019-08-31 19:21 | disposition home or self-care (01) ==
LOC: ED 16:58
DX: R07.89 Other chest pain (principal); R53.83 Other fatigue; R00.0 Tachycardia, unspecified; I10 Essential (primary) hypertension; E78.00 Pure hypercholesterolemia, unspecified; G35 Multiple sclerosis; J45.909 Unspecified asthma, uncomplicated; E11.9 Type 2 diabetes mellitus without complications; Z79.84 Long term (current) use of oral hypoglycemic drugs
CPT/HCPCS: 36415; 71045; 80053; 83690; 84484; 85025; 93005; 96374; 99284; 99285; A9270; J2060

== ENCOUNTER 2019-09-02 13:19 | Outpatient (CLI) | payer MEDICARE, OTHER, MEDICAID | END 2019-09-02 13:20 | disposition EMS.NT | LOC: EMS 13:19 | PROVIDERS: ATTEND Surgery | DX: R06.00 Dyspnea, unspecified (principal) ==

== ENCOUNTER 2019-09-25 08:00 | Outpatient (CLI) | payer MEDICARE, OTHER, MEDICAID ==
[2019-09-25 18:45] LABS: BASOPHILS # (AUTO) 0.1 10^3/uL (0.0-0.1); BASOPHILS % (AUTO) 0.9 %; EOSINOPHILS # (AUTO) 0.2 10^3/uL (0.0-0.7); EOSINOPHILS % (AUTO) 2.7 %; HGB - HEMOGLOBIN 13.1 g/dL (12.0-16.0); LYMPHOCYTES # (AUTO) 1.4 10^3/uL (1.5-3.5); LYMPHOCYTES % (AUTO) 18.6 %; MEAN CORPUSCULAR HEMOGLOBIN 28.8 pg (27.0-31.0); MEAN CORPUSCULAR HGB CONC 30.5 g/dL (32.0-36.0); MEAN CORPUSCULAR VOLUME 94.5 fL (81.0-99.0); MEAN PLATELET VOLUME 10.7 fL (7.9-10.8); MONOCYTES # (AUTO) 0.4 10^3/uL (0.0-1.0); MONOCYTES % (AUTO) 4.9 %; NEUTROPHILS # (AUTO) 5.4 10^3/uL (1.5-6.6); NEUTROPHILS % (AUTO) 72.6 %; PLT - PLATELET COUNT 214 10^3/uL (130-450); RED BLOOD COUNT 4.55 10^6/uL (4.20-5.40); RED CELL DISTRIBUTION WIDTH 13.9 % (12.0-15.0); WHITE BLOOD COUNT 7.4 x10^3/uL (4.8-10.8)
[2019-09-25 19:08] LABS: ALBUMIN 3.9 g/dL (3.2-5.5); ALBUMIN/GLOBULIN RATIO 1.3 (1.0-2.2); ALKALINE PHOSPHATASE 115 IU/L (42-121); ALT ALANINE AMINOTRANSFERASE 16 IU/L (10-60); AST ASPARTATE AMINOTRANSFERASE 15 IU/L (10-42); BILIRUBIN,TOTAL 0.5 mg/dL (0.2-1.0); BUN - BLOOD UREA NITROGEN 24 mg/dL (6-20); CARBON DIOXIDE - CO2 23 mmol/L (21-32); CHLORIDE 109 mmol/L (101-111); CHOL/HDL RATIO 3.1 (<4.4); CHOLESTEROL 184 mg/dL; CREATININE 0.9 mg/dL (0.4-1.0); GLUCOSE 109 mg/dL (70-100); HDL CHOLESTEROL 60 mg/dL; LDL CHOLESTEROL,CALCULATED 93 mg/dL; LDL/HDL RATIO 1.6 (<4.4); SODIUM 141 mmol/L (135-145); TOTAL PROTEIN 6.8 g/dL (6.7-8.2); VLDL CHOLESTEROL 31 mg/dL
[2019-09-25 19:26] LABS: HB2 TOTAL 13.5 g/dL; HEMOGLOBIN A1C 0.51 g/dL; HEMOGLOBIN A1C % 5.6 % (4.6-6.2)
[2019-09-25 20:03] LABS: FREE T4 (FREE THYROXINE) 0.8 ng/dL (0.58-1.64)
== END 2019-09-25 23:59 | disposition home or self-care (01) ==
LOC: LAB.WCP 08:00
PROVIDERS: ATTEND Family Medicine
DX: E11.9 Type 2 diabetes mellitus without complications (principal)
CPT/HCPCS: 36415; 80053; 80061; 83036; 83721; 84439; 84443; 85025

== ENCOUNTER 2019-10-04 13:09 | Outpatient (CLI) | payer MEDICARE, OTHER, MEDICAID ==
--- NOTE | 2019-10-07 10:33 | Mammography Report ---
BILATERAL DIGITAL SCREENING MAMMOGRAM 3D/2D: 10/04/2019 CLINICAL: Routine screening. Comparison is made to exams dated: 11/30/2017 mammogram, 07/11/2016 mammogram, and 01/29/2014 mammogra m - [facility]. There are scattered fibroglandular elements in both breasts. No significant masses, calcifications, or other findings are seen in either breast. There has been no significant interval change. IMPRESSION: NEGATIVE There is no mammographic evidence of malignancy. A 1 year screening mammogram is recommended. This exam was interpreted at Station ID: [id number]. NOTE: For mammograms, a report in lay terms will be sent to the patient. Approximately 15% of breast malignancies will not be visualized mammographically. In the management of a palpable breast mass, a negative mammogram must not discourage biopsy of a clinically suspicious lesion. Electronically Signed By: Ml cabrales/levirad:10/04/2019 17:56:30 ACR BI-RADS Category 1: Negative [id number] PARENCHYMAL PATTERN: (A) - The breast(s) demonstrate(s) scattered fibroglandular densities. BI-RADS CATEGORY: (1) - 1 RECOMMENDATION: (ANNUAL) - Recommend routine annual screening mammography. [id number] 1 year screening LATERALITY: (B)
== END 2019-10-04 13:10 | disposition home or self-care (01) ==
LOC: DI.N 13:09
DX: Z12.31 Encounter for screening mammogram for malignant neoplasm of breast (principal)
CPT/HCPCS: 77063; 77067

== ENCOUNTER 2019-11-15 08:00 | Outpatient (CLI) | payer MEDICARE, OTHER, MEDICAID ==
--- NOTE | 2019-11-15 20:21 | XRAY Report ---
PROCEDURE: Thoracic Spine 2 View INDICATIONS: MALFUNCTION OF SPINAL CORD STIMULATOR TECHNIQUE: 3 views of the thoracic spine were acquired. COMPARISON: None. FINDINGS: Bones: No fractures or dislocations. No suspicious bony lesions. 12 pairs of ribs are noted, and a ppear intact where visualized. There are anterior osteophytes and intervertebral disc space narrowing . Cervical fixation hardware in epidural nerve stimulators are noted. Soft tissues: No paravertebral stripe thickening. IMPRESSION: Mild to moderate degenerative change. Epidural neurostimulator has a normal radiographic appearance where visualized. Reviewed by: Wendy Duff MD on 11/15/2019 8:20 PM PDT Approved by: Wendy Duff MD on 11/15/2019 8:20 PM PDT Station ID: [id number]
--- NOTE | 2019-11-15 20:23 | XRAY Report ---
PROCEDURE: Lumbar Spine 2 View INDICATIONS: EVAL FOR SCS LEAD MIGRATION TECHNIQUE: 2 views of the lumbar spine were acquired. COMPARISON: None. FINDINGS: Bones: 5 [id number] vertebrae are present. There is normal bony alignment. No vertebral body compression fractures. No suspicious bony lesions. Degenerative changes including intervertebral di sc space narrowing, endplate sclerosis, osteophytosis, and facet sclerosis are present throughout the lumbar spine. There is mild anterior wedging at T12 and L1 which has a chronic appearance. Soft tissues: Overlying bowel gas pattern is normal. No suspicious soft tissue calcifications. The epidural nerve stimulator has a normal appearance where visualized. There is no fracture of the cord s. IMPRESSION: 1. Degenerative change of the lumbar spine. 2. Normal radiographic appearance of the epidural nerve stimulator. Reviewed by: Wendy Duff MD on 11/15/2019 8:22 PM PDT Approved by: Wendy Duff MD on 11/15/2019 8:22 PM PDT Station ID: [id number]
== END 2019-11-15 23:59 | disposition home or self-care (01) ==
LOC: DI 08:00
PROVIDERS: ATTEND Pain Medicine Pain Medicine
DX: T85.192D Other mechanical complication of implanted electronic neurostimulator of spinal cord electrode (lead), subsequent encounter (principal); M47.816 Spondylosis without myelopathy or radiculopathy, lumbar region; M47.814 Spondylosis without myelopathy or radiculopathy, thoracic region

== ENCOUNTER 2019-11-21 06:26 | Day surgery (SDC) | payer MEDICARE, OTHER, MEDICAID ==
[2019-11-21] MEDS ORDERED: LACTATED RINGERS 1,000 ML IV ONE ×2 (06:41→11:00)
[2019-11-21] MEDS ORDERED: LIDO GARGLE 30 ML BOTTLE ONE (07:38)
--- NOTE | 2019-11-21 07:58 | ANESTHESIA ---
Pre-Anesthesia VS, & Labs - Diagnosis colon screening, GERD - Procedure Colonoscopy, EGD Vital Signs: Temp Pulse Resp BP Pulse Ox 36.5 C 106 H 15 140/80 H 95 11/21/19 06:49 11/21/19 06:49 11/21/19 06:49 11/21/19 06:49 11/21/19 06:49 Height: 5 ft 4 in Weight (kg): 114.3 kg Body Mass Index: 43.2 BMI Classification: Morbidly Obese - NPO Last Fluid Intake: 429 - Is Patient ?: No - Lab Results Current Lab Results: Laboratory Tests 11/21/19 07:04: POC Whole Bld Glucose 125 H Home Medications and Allergies Home Medications: Ambulatory Orders Albuterol Sulfate 2.5 mg IH PRN PRN 11/12/19 Aspirin [Adult Aspirin Regimen] 81 mg PO DAILY 11/12/19 Calcium Carbonate [Elemental Calcium] 600 mg PO BID 11/12/19 Cholecalciferol [Vitamin D3] 25 mcg PO DAILY 11/12/19 Cyanocobalamin (Vitamin B-12) [Vitamin B-12] 5,000 mcg PO DAILY 11/12/19 Desvenlafaxine [Desvenlafaxine ER] 100 mg PO DAILY 11/12/19 Diclofenac Potassium 50 mg PO BID PRN 11/12/19 Fluticasone/Salmeterol [Advair Hfa 115-21 Mcg Inhaler] 2 puffs IH BID 11/12/19 Fremanezumab-Vfrm [Ajovy Autoinjector] 225 mg SQ ONCE 11/12/19 Magnesium Oxide [Magnesium] 400 mg PO DAILY 11/12/19 Mirabegron [Myrbetriq] 50 mg PO DAILY 11/12/19 Ondansetron Odt [Zofran Odt] 4 mg TL Q8HR PRN 11/12/19 Potassium Gluconate 1 - 2 tab PO BID PRN 11/12/19 Rizatriptan Benzoate [Rizatriptan] 10 mg PO PRN PRN 11/12/19 Topiramate 150 mg PO BID 11/12/19 tiZANidine [Zanaflex] 1 - 3 tab PO Q8H PRN 11/12/19 Omeprazole 40 mg PO DAILY 11/21/19 Levothyroxine Sodium 125 mcg PO DAILY 06/06/12 Multivitamin [Multiple Vitamins] 1 each PO DAILY 06/06/12 Albuterol Sulf [Ventolin Hfa Inhaler] 2 puffs INH QID 04/16/16 Montelukast [Singulair] 10 mg PO QPM 04/16/16 Atorvastatin [Lipitor] 40 mg PO DAILY 03/12/17 Quetiapine Fumarate [Seroquel] 300 mg PO DAILY 03/12/17 Levocetirizine Dihydrochloride 5 mg ORAL DAILY 07/02/18 metFORMIN [Glucophage] 1,000 tab ORAL BID 07/02/18 Albuterol Sulfate 2.5 mg IH PRN PRN 11/12/19 Aspirin [Adult Aspirin Regimen] 81 mg PO DAILY 11/12/19 Calcium Carbonate [Elemental Calcium] 600 mg PO BID 11/12/19 Cholecalciferol [Vitamin D3] 25 mcg PO DAILY 11/12/19 Cyanocobalamin (Vitamin B-12) [Vitamin B-12] 5,000 mcg PO DAILY 11/12/19 Desvenlafaxine [Desvenlafaxine ER] 100 mg PO DAILY 11/12/19 Diclofenac Potassium 50 mg PO BID PRN 11/12/19 Fluticasone/Salmeterol [Advair Hfa 115-21 Mcg Inhaler] 2 puffs IH BID 11/12/19 Fremanezumab-Vfrm [Ajovy Autoinjector] 225 mg SQ ONCE 11/12/19 Magnesium Oxide [Magnesium] 400 mg PO DAILY 11/12/19 Mirabegron [Myrbetriq] 50 mg PO DAILY 11/12/19 Ondansetron Odt [Zofran Odt] 4 mg TL Q8HR PRN 11/12/19 Potassium Gluconate 1 - 2 tab PO BID PRN 11/12/19 Rizatriptan Benzoate [Rizatriptan] 10 mg PO PRN PRN 11/12/19 Topiramate 150 mg PO BID 11/12/19 tiZANidine [Zanaflex] 1 - 3 tab PO Q8H PRN 11/12/19 Omeprazole 40 mg PO DAILY 11/21/19 Allergies/Adverse Reactions: Allergies Allergy/AdvReac Type Severity Reaction Status Date / Time strawberry [[place]] Allergy Severe Rash Verified 11/21/19 07:10 sulfamethoxazole Allergy Mild Rash Verified 11/21/19 07:10 [From Septra] trimethoprim [From Septra] Allergy Mild Rash Verified 11/21/19 07:10 clindamycin Allergy Unknown Emesis Verified 11/21/19 07:10 erythromycin lactobionate * Allergy Unknown Hives Verified 11/21/19 07:10 [From Erythrocin] Penicillins Allergy Unknown Hives Verified 11/21/19 07:10 adhesive tape Allergy Rash Verified 11/21/19 07:10 bee venom protein (honey bee) Allergy Respiratory Verified 11/21/19 07:10 butorphanol tartrate * Allergy cardiac Verified 11/21/19 07:10 [From Stadol] arrest codeine Allergy Nausea Verified 11/21/19 07:10 doxycycline Allergy Hives Verified 11/21/19 07:10 hydromorphone HCl * Allergy Hives Verified 11/21/19 07:10 [From Dilaudid] meperidine HCl * Allergy Hives Verified 11/21/19 07:10 [From Demerol] NSAIDS (Non-Steroidal Allergy GI upset Verified 11/21/19 07:10 Anti-Inflamma pregabalin [From Lyrica] Allergy severe Verified 11/21/19 07:10 mood swings simvastatin [From Zocor] Allergy Hives Verified 11/21/19 07:10 solifenacin [From Vesicare] Allergy "bad UTI" Verified 11/21/19 07:10 sumatriptan [From Imitrex] Allergy mood Verified 11/21/19 07:10 swings/ suicidal sumatriptan succinate * Allergy mood Verified 11/21/19 07:10 [From Imitrex] swings/ suicidal vancomycin Allergy "red man Verified 11/21/19 07:10 syndrome" vilazodone HCl * Allergy severe Verified 11/21/19 07:10 [From Viibryd] depression/ suicidal vortioxetine hydrobromide * Allergy severe Verified 11/21/19 07:10 [From Trintellix] depression/ suicidal morphine AdvReac "blackouts" Verified 11/21/19 07:10 [place] Allergy Severe Anaphylaxis Uncoded 11/21/19 07:10 Anes History & Medical History - Anesthetic History Anesthesia Complications: reports: No previous complications - Medical History Cardiovascular: reports: High cholesterol Pulmonary: reports: Asthma, Sleep apnea, CPAP use Gastrointestinal: reports: GERD Urinary: reports: Incontinence Neuro: reports: Migraines, Multiple sclerosis Musculoskeletal: reports: Osteoarthritis, Fibromyalgia, Chronic back pain Endocrine/Autoimmune: reports: Type 2 diabetes Blood Disorders: reports: None Skin: reports: Eczema Smoking Status: Never smoker Psychosocial: reports: Depression, Anxiety - Surgical History General: Colonoscopy, EGD, Other Eyes Ears Nose Throat (EENT): Tonsil/Adenoidectomy Urologic: Bladder surgery Gynecologic: Dilation and currettage, Tubal ligation Orthopedic: Knee replacement, Rotator cuff repair, Arthroscopic surgery, Carpal Tunnel surgery, Spine surgery Exam General: Alert, Oriented x3, Cooperative, No acute distress Dental: Dentures full Upper, Dentures full Lower Mouth Openin Fingerbreadth Neck Mobility: Normal Mallampati classification: II Thyromental Distance: 4-6 cm Respiratory: Lungs clear, Normal breath sounds, No respiratory distress, No accessory muscle use Cardiovascular: Regular rate, Normal S1, Normal S2, No murmurs Mental/Cognitive Status: Alert/Oriented X3, Normal for patient Plan Anesthesia Type: MAC Consent for Procedure(s) Verified and Reviewed: Yes Code Status: Attempt Resuscitation ASA classification: 3-Severe systemic disease Is this case an emergency?: No
[2019-11-21] MEDS ORDERED: LIDO GARGLE 30 ML BOTTLE TOP ONE (09:54)
[2019-11-21] MEDS ORDERED: BENZOCAINE/TETRACAINE/BUTAMBEN 20 GM TOP ONE (09:55)
[2019-11-21 11:13] VITALS: BP 155/88
--- NOTE | 2019-11-21 11:18 | ANESTHESIA POST OP EVALUATION ---
Anesthesia Post Eval - Post Anesthesia Eval Vitals: Last Vital Signs Temp 36.6 C 11/21/19 11:12 Pulse 95 11/21/19 11:12 Resp 12 11/21/19 11:12 BP 155/88 H 11/21/19 11:12 Pulse Ox 100 11/21/19 11:12 CV Function Including HR & BP: positive: Stable Pain Control: positive: Satisfactory Nausea & Vomiting: positive: Negative Mental Status: positive: Baseline Respiratory Status: Airway Patent Hydration Status: Satisfactory Anesthesia Complications: positive: None
== END 2019-11-21 06:27 | disposition home or self-care (01) ==
LOC: SDS 06:26
PROVIDERS: ATTEND Surgery
PROC: 0DB68ZZ Excision of Stomach, Via Natural or Artificial Opening Endoscopic (ICD-10-PCS; principal; 2019-11-21 07:30)
DX: Z12.11 Encounter for screening for malignant neoplasm of colon (principal); K21.9 Gastro-esophageal reflux disease without esophagitis; K25.4 Chronic or unspecified gastric ulcer with hemorrhage; K31.7 Polyp of stomach and duodenum; K44.9 Diaphragmatic hernia without obstruction or gangrene; E11.9 Type 2 diabetes mellitus without complications; E03.9 Hypothyroidism, unspecified; E78.5 Hyperlipidemia, unspecified; G47.33 Obstructive sleep apnea (adult) (pediatric); J45.909 Unspecified asthma, uncomplicated; R32 Unspecified urinary incontinence; G35 Multiple sclerosis; M79.7 Fibromyalgia; G89.29 Other chronic pain; M54.9 Dorsalgia, unspecified; F32.9 Major depressive disorder, single episode, unspecified; F41.9 Anxiety disorder, unspecified; E66.01 Morbid (severe) obesity due to excess calories; Z68.41 Body mass index [BMI] 40.0-44.9, adult; Z79.51 Long term (current) use of inhaled steroids; Z79.82 Long term (current) use of aspirin; Z79.84 Long term (current) use of oral hypoglycemic drugs; Z79.899 Other long term (current) drug therapy; Z86.73 Personal history of transient ischemic attack (TIA), and cerebral infarction without residual deficits; Z98.1 Arthrodesis status; Z87.891 Personal history of nicotine dependence
CPT/HCPCS: 43239; 45378; A9270; J7120

== ENCOUNTER 2019-12-16 14:20 | Outpatient (CLI) | payer MEDICARE, OTHER, MEDICAID | END 2019-12-16 14:21 | disposition critical access hospital (66) | LOC: EMS 14:20 | PROVIDERS: ATTEND Surgery | DX: R55 Syncope and collapse (principal) | CPT/HCPCS: A0425; A0429 ==

== ENCOUNTER 2019-12-16 14:43 | Emergency (ER) | payer MEDICARE, OTHER, MEDICAID ==
[2019-12-16] MEDS ORDERED: oxyCODONE 5 MG TABLET PO STA (15:33)
--- NOTE | 2019-12-16 15:37 | ED Physician Documentation ---
History of Present Illness - Stated complaint Stated Complaint: SYNCOPE - Chief complaint Chief Complaint: Neuro - History obtained from History obtained from: Patient - History of Present Illness Timing: Today Pain level max: 4 Pain level now: 3 - Additonal information Additional information: 64-year-old female presents to the emergency department stating she had a "blackout event" at home today. She states that this is not uncommon for her. she states her main issue today is she has chest pain since this morning. She states that she took her Percocet this morning without relief. She states it is substernal, nonradiating. States that it does hurt to breathe. No fever. No cough. Review of Systems Ten Systems: 10 systems reviewed and negative Constitutional: denies: Fever, Chills Nose: denies: Rhinorrhea / runny nose, Congestion Throat: denies: Sore throat Cardiac: denies: Palpitations Respiratory: denies: Cough, Wheezing GI: denies: Abdominal Pain, Nausea, Vomiting, Constipation, Diarrhea, Hematemesis Skin: denies: Rash Musculoskeletal: denies: Neck pain, Back pain Neurologic: denies: Headache PD PAST MEDICAL HISTORY - Past Medical History Cardiovascular: High cholesterol Respiratory: Asthma, Sleep apnea, CPAP use Neuro: Migraines, Multiple sclerosis Endocrine/Autoimmune: Type 2 diabetes GI: GERD 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: None : Incontinence HEENT: Chronic vision loss, Chronic hearing loss Psych: Depression, Anxiety, Bipolar disorder, Panic attacks Musculoskeletal: Osteoarthritis, Fibromyalgia, Chronic back pain Derm: Eczema - Past Surgical History Past Surgical History: Yes General: Colonoscopy, EGD, Other Ortho: Knee replacement, Rotator cuff repair, Arthroscopic surgery, Carpal Tunnel surgery, Spine surgery /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: Dilation and currettage, Tubal ligation HEENT: Tonsil/Adenoidectomy - Present Medications Home Medications: Ambulatory Orders Medication Instructions Recorded Confirmed Levothyroxine Sodium 125 mcg PO DAILY 06/06/12 11/12/19 Multivitamin [Multiple Vitamins] 1 each PO DAILY 06/06/12 11/12/19 Oxycodone HCl/Acetaminophen 1 each PO Q4H PRN #20 tablet 11/14/13 11/21/19 [Percocet 10-325 mg Tablet] Albuterol Sulf [Ventolin Hfa 2 puffs INH QID 04/16/16 11/12/19 Inhaler] Montelukast [Singulair] 10 mg PO QPM 04/16/16 11/12/19 Atorvastatin [Lipitor] 40 mg PO DAILY 03/12/17 11/12/19 Quetiapine Fumarate [Seroquel] 300 mg PO DAILY 03/12/17 11/12/19 Levocetirizine Dihydrochloride 5 mg ORAL DAILY 07/02/18 11/12/19 metFORMIN [Glucophage] 1,000 tab ORAL BID 07/02/18 11/12/19 Albuterol Sulfate 2.5 mg IH PRN PRN 11/12/19 11/12/19 Aspirin [Adult Aspirin Regimen] 81 mg PO DAILY 11/12/19 11/12/19 Calcium Carbonate [Elemental 600 mg PO BID 11/12/19 11/12/19 Calcium] Cholecalciferol [Vitamin D3] 25 mcg PO DAILY 11/12/19 11/12/19 Cyanocobalamin (Vitamin B-12) 5,000 mcg PO DAILY 11/12/19 11/12/19 [Vitamin B-12] Desvenlafaxine [Desvenlafaxine ER] 100 mg PO DAILY 11/12/19 11/12/19 Diclofenac Potassium 50 mg PO BID PRN 11/12/19 11/12/19 Fluticasone/Salmeterol [Advair Hfa 2 puffs IH BID 11/12/19 11/12/19 115-21 Mcg Inhaler] Fremanezumab-Vfrm [Ajovy 225 mg SQ ONCE 11/12/19 11/12/19 Autoinjector] Magnesium Oxide [Magnesium] 400 mg PO DAILY 11/12/19 11/12/19 Mirabegron [Myrbetriq] 50 mg PO DAILY 11/12/19 11/12/19 Ondansetron Odt [Zofran Odt] 4 mg TL Q8HR PRN 11/12/19 11/12/19 Potassium Gluconate 1 - 2 tab PO BID PRN 11/12/19 11/12/19 Rizatriptan Benzoate [Rizatriptan] 10 mg PO PRN PRN 11/12/19 11/12/19 Topiramate 150 mg PO BID 11/12/19 11/12/19 tiZANidine [Zanaflex] 1 - 3 tab PO Q8H PRN 11/12/19 11/12/19 Omeprazole 40 mg PO DAILY 11/21/19 11/21/19 - Allergies Allergies/Adverse Reactions: Allergies Allergy/AdvReac Type Severity Reaction Status Date / Time strawberry [[place]] Allergy Severe Rash Verified 11/21/19 07:10 sulfamethoxazole Allergy Mild Rash Verified 11/21/19 07:10 [From Septra] trimethoprim [From Septra] Allergy Mild Rash Verified 11/21/19 07:10 clindamycin Allergy Unknown Emesis Verified 12/16/19 14:58 erythromycin lactobionate * Allergy Unknown Hives Verified 12/16/19 14:58 [From Erythrocin] Penicillins Allergy Unknown Hives Verified 12/16/19 14:58 adhesive tape Allergy Rash Verified 12/16/19 14:58 bee venom protein (honey bee) Allergy Respiratory Verified 12/16/19 14:58 butorphanol tartrate * Allergy cardiac Verified 12/16/19 14:58 [From Stadol] arrest codeine Allergy Nausea Verified 12/16/19 14:58 doxycycline Allergy Hives Verified 12/16/19 14:58 hydromorphone HCl * Allergy Hives Verified 12/16/19 14:58 [From Dilaudid] meperidine HCl * Allergy Hives Verified 12/16/19 14:58 [From Demerol] NSAIDS (Non-Steroidal Allergy GI upset Verified 12/16/19 14:58 Anti-Inflamma pregabalin [From Lyrica] Allergy severe Verified 12/16/19 14:58 mood swings simvastatin [From Zocor] Allergy Hives Verified 12/16/19 14:58 solifenacin [From Vesicare] Allergy "bad UTI" Verified 12/16/19 14:58 sumatriptan [From Imitrex] Allergy mood Verified 12/16/19 14:58 swings/ suicidal sumatriptan succinate * Allergy mood Verified 12/16/19 14:58 [From Imitrex] swings/ suicidal vancomycin Allergy "red man Verified 12/16/19 14:58 syndrome" vilazodone HCl * Allergy severe Verified 12/16/19 14:58 [From Viibryd] depression/ suicidal vortioxetine hydrobromide * Allergy severe Verified 12/16/19 14:58 [From Trintellix] depression/ suicidal morphine AdvReac "blackouts" Verified 12/16/19 14:58 [place] Allergy Severe Anaphylaxis Uncoded 12/16/19 14:58 - Social History Does the pt smoke?: No Smoking Status: Never smoker Does the pt drink ETOH?: No Does the pt have substance abuse?: No - Immunizations Immunizations are current?: Yes Immunizations: TDAP current <10years - POLST Patient has POLST: No PD ED PE NORMAL - Vitals Vital signs reviewed: Yes - General General: Alert and oriented X 3, No acute distress - HEENT HEENT: Moist mucous membranes - Neck Neck: Supple, no meningeal sign - Cardiac Cardiac: RRR - Respiratory Respiratory: No respiratory distress, Clear bilaterally - Abdomen Abdomen: Soft, Non tender, Non distended - Derm Derm: Warm and dry - Extremities Extremities: No edema, No calf tenderness / cord - Neuro Neuro: Alert and oriented X 3 - Psych Psych: Normal mood, Normal affect Results - Vitals Vitals: Vital Signs - 24 hr 12/16/19 12/16/19 12/16/19 14:44 15:48 16:05 Temperature 36.6 C Heart Rate 103 H 95 96 Respiratory 13 11 L 14 Rate Blood Pressure 147/90 H 103/65 113/82 H O2 Saturation 97 98 97 Oxygen O2 Source Room air - EKG (time done) 1457 Rate: Rate (enter#) (97) Rhythm: NSR [place]: Normal Intervals: Normal [place] QRS: Normal Ischemia: Normal ST segments, Q waves (III, aVF) - Labs Labs: Laboratory Tests 12/16/19 12/16/19 12/16/19 15:43 15:43 15:43 WBC 5.2 RBC 4.18 L Hgb 12.2 Hct 39.2 MCV 93.8 MCH 29.2 MCHC 31.1 L RDW 13.5 Plt Count 162 MPV 9.8 Neut # (Auto) 3.1 Lymph # (Auto) 1.4 L [place] # (Auto) 0.4 Eos # (Auto) 0.2 Baso # (Auto) 0.1 Absolute Nucleated RBC 0.00 Nucleated RBC % 0.0 D-Dimer 239.6 Sodium 138 Potassium 3.8 Chloride 104 Carbon Dioxide 24 Anion Gap 10.0 BUN 18 Creatinine 0.9 Estimated GFR (MDRD) 63 L Glucose 104 H Calcium 8.5 Total Bilirubin 0.4 AST 21 ALT 19 Alkaline Phosphatase 107 Troponin I High Sens Total Protein 6.1 L Albumin 3.5 Globulin 2.6 Albumin/Globulin Ratio 1.3 Lipase 44 12/16/19 15:43 WBC RBC Hgb Hct MCV MCH MCHC RDW Plt Count MPV Neut # (Auto) Lymph # (Auto) [place] # (Auto) Eos # (Auto) Baso # (Auto) Absolute Nucleated RBC Nucleated RBC % D-Dimer Sodium Potassium Chloride Carbon Dioxide Anion Gap BUN Creatinine Estimated GFR (MDRD) Glucose Calcium Total Bilirubin AST ALT Alkaline Phosphatase Troponin I High Sens < 2.3 L Total Protein Albumin Globulin Albumin/Globulin Ratio Lipase - Rads (name of study) Chest x-ray Radiology: Prelim report reviewed, EMP read contemporaneously, See rad report (Mild alveolar edema pattern, but no cardiomegaly. No pneumonia found. ) PD MEDICAL DECISION MAKING - ED course Complexity details: reviewed results, re-evaluated patient, considered differential, d/w patient ED course: Patient is well-appearing, nontoxic. Afebrile. No hypoxia. No respiratory distress. Negative high-sensitivity troponin after greater than 8 hours of symptoms. Symptoms resolved with GI cocktail. Patient counseled regarding signs and symptoms for which I believe and urgent re-evaluation would be necessary. Patient with good understanding of and agreement to plan and is comfortable going home at this time This document was made in part using voice recognition software. While efforts are made to proofread this document, sound alike and grammatical errors may occ ur. Patient has a longstanding history of these "blackout" events and appear to be related to her conversion disorder. Departure - Departure Disposition: 01 Home, Self Care Clinical Impression: Chest pain Qualifiers: Chest pain type: unspecified Qualified Code(s): R07.9 - Chest pain, unspecified Condition: Good Instructions: ED Chest Pain Atypical Unkn Cause Follow-Up: Dyan Tirado PA-C [Primary Care Provider] - Within 1 week Comments: Your testing does not show any acute abnormalities today. Follow-up with your doctor for further care. Return if you worsen Discharge Date/Time: 12/16/19 16:37
[2019-12-16 15:50] LABS: BASOPHILS # (AUTO) 0.1 10^3/uL (0.0-0.1); BASOPHILS % (AUTO) 1.2 %; EOSINOPHILS # (AUTO) 0.2 10^3/uL (0.0-0.7); EOSINOPHILS % (AUTO) 4.4 %; HGB - HEMOGLOBIN 12.2 g/dL (12.0-16.0); LYMPHOCYTES # (AUTO) 1.4 10^3/uL (1.5-3.5); LYMPHOCYTES % (AUTO) 26.7 %; MEAN CORPUSCULAR HEMOGLOBIN 29.2 pg (27.0-31.0); MEAN CORPUSCULAR HGB CONC 31.1 g/dL (32.0-36.0); MEAN CORPUSCULAR VOLUME 93.8 fL (81.0-99.0); MEAN PLATELET VOLUME 9.8 fL (7.9-10.8); MONOCYTES # (AUTO) 0.4 10^3/uL (0.0-1.0); MONOCYTES % (AUTO) 7.4 %; NEUTROPHILS # (AUTO) 3.1 10^3/uL (1.5-6.6); NEUTROPHILS % (AUTO) 59.9 %; PLT - PLATELET COUNT 162 10^3/uL (130-450); RED BLOOD COUNT 4.18 10^6/uL (4.20-5.40); RED CELL DISTRIBUTION WIDTH 13.5 % (12.0-15.0); WHITE BLOOD COUNT 5.2 x10^3/uL (4.8-10.8)
[2019-12-16 16:02] LABS: ALBUMIN 3.5 g/dL (3.2-5.5); ALBUMIN/GLOBULIN RATIO 1.3 (1.0-2.2); BILIRUBIN,TOTAL 0.4 mg/dL (0.2-1.0); CALCIUM 8.5 mg/dL (8.5-10.3); CREATININE 0.9 mg/dL (0.4-1.0); TOTAL PROTEIN 6.1 g/dL (6.7-8.2)
[2019-12-16 16:06] VITALS: BP 113/82
[2019-12-16] MEDS ORDERED: MAG HYDROX/AL HYDROX/SIMETH 30 ML UDC PO STA (16:10)
--- NOTE | 2019-12-16 16:21 | XRAY Report ---
PROCEDURE: Chest 1 View X-Ray INDICATIONS: Chest Pain TECHNIQUE: One view of the chest was acquired. COMPARISON08/31/2019 FINDINGS: Surgical changes and devices: Cervical fusion plates, spinal electrode stimulator plates. Lungs and pleura: No pleural effusions or pneumothorax. Lungs are mildly edematous, inspiratory vol ume is reduced. Mediastinum: Mediastinal contours appear normal. Heart size is normal. Bones and chest wall: No suspicious bony lesions. Overlying soft tissues appear unremarkable. IMPRESSION: Mild alveolar edema pattern, but no cardiomegaly. No pneumonia found. Reviewed by: Garret Honeycutt MD on 12/16/2019 4:20 PM [facility] Approved by: Garret Honeycutt MD on 12/16/2019 4:20 PM PST Station ID: [id number]
== END 2019-12-16 16:37 | disposition home or self-care (01) ==
LOC: EDUNIT# → ED 14:43
DX: R55 Syncope and collapse (principal); R07.9 Chest pain, unspecified; E11.9 Type 2 diabetes mellitus without complications; Z79.82 Long term (current) use of aspirin; Z79.84 Long term (current) use of oral hypoglycemic drugs; I25.2 Old myocardial infarction
CPT/HCPCS: 36415; 71045; 80053; 83690; 84484; 85025; 85379; 93005; 99284; A9270; U0004

== ENCOUNTER 2020-02-18 08:00 | Outpatient (CLI) | payer MEDICARE, OTHER, MEDICAID ==
[2020-02-18 20:45] LABS: HEMOGLOBIN A1c% 5.8 % (4.27-6.07)
== END 2020-02-18 23:59 | disposition home or self-care (01) ==
LOC: LAB.WCP 08:00
PROVIDERS: ATTEND Physician Assistant Medical
DX: E11.9 Type 2 diabetes mellitus without complications (principal)
CPT/HCPCS: 36415; 83036; 84443

== ENCOUNTER 2020-03-02 09:34 | Outpatient (CLI) | payer MEDICARE, OTHER, MEDICAID ==
--- NOTE | 2020-03-02 17:53 | DEXA Report ---
PROCEDURE: Dexa Spine and/or Hip INDICATIONS: POST MENOPAUSAL TECHNIQUE: Dual energy x-ray absorptiometry (DXA) was performed on a [employer] System. Regions measur ed are the AP Spine, femoral neck, and if needed forearm. COMPARISON: None. FINDINGS: Lumbar Spine: Bone Mineral Density 1.293 g/cm/cm,T score 0.9, normal Left Hip: Bone Mineral Density 0.952 g/cm/cm,T score -0.4, normal Left Femoral Neck: Bone Mineral Density 0.886 g/cm/cm, T score -1.1, osteopenia (T score greater or equal to -1.0: NORMAL) (T score from -1.1 to -2.4: OSTEOPENIA) (T score less than or equal to -2.5 to: OSTEOPOROSIS) Impression: Osteopenia. Patients with diagnosis of osteoporosis or osteopenia should have regular bone mineral density assess ment. For those eligible for Medicare, routine testing is allowed once every 2 years. Testing frequ ency can be increased for patients who have rapidly progressing disease or for those who are receivin g medical therapy to restore bone mass. Reviewed by: Nafisa Worrell MD, PhD on 03/02/2020 4:52 PM [place] Approved by: Nafisa Worrell MD, PhD on 03/02/2020 4:52 PM [facility] Station ID: [id number]
== END 2020-03-02 09:35 | disposition home or self-care (01) ==
LOC: DI 09:34
PROVIDERS: ATTEND Physician Assistant Medical
DX: M85.88 Other specified disorders of bone density and structure, other site (principal)

== ENCOUNTER 2020-05-08 22:35 | Emergency (ER) | payer MEDICARE, OTHER, MEDICAID ==
[2020-05-08 22:54] LABS: BILIRUBIN,URINE NEGATIVE (NEGATIVE); GLUCOSE, URINE (UA) NEGATIVE (NEGATIVE); KETONES,URINE (UA) NEGATIVE (NEGATIVE); LEUKOCYTE ESTERASE, URINE TRACE (NEGATIVE); NITRITE,URINE POSITIVE (NEGATIVE); OCCULT BLOOD,URINE NEGATIVE (NEGATIVE); PROTEIN,URINE NEGATIVE (NEGATIVE); UROBILINOGEN,URINE 0.2 (NORMAL) E.U./dL (NORMAL)
[2020-05-08 22:55] LABS: CLARITY,URINE SL. CLOUDY (CLEAR)
[2020-05-08 23:01] LABS: BACTERIA,URINE Many /HPF (None Seen); RBC,URINE None Seen /HPF (0-5); SQUAMOUS EPITHELIAL CELL,UR NONE SEEN (<= Few)
--- NOTE | 2020-05-08 23:28 | ED Physician Documentation ---
History of Present Illness - Stated complaint Stated Complaint: BACK PX/POWELL - Chief complaint Chief Complaint: Back Pain - History obtained from History obtained from: Patient - History of Present Illness Timing: Today Pain level now: 8 Improved by: nothing Worsened by: no exacerbating factors - Additonal information Additional information: patient complains of bilateral low back pain since 3 PM today, subsequently developed a global headache that she identifies as one of her migraine headaches along with neck pain. She denies any trauma. She said she has had similar neck and back pain before, but not this severe. She also notes urinary frequency. She takes medications at home that include Toradol, both oral and injectable, as well as Percocet and topiramate. She said she took two tablets of Percocet this afternoon without relief. Review of Systems Constitutional: reports: Reviewed and negative Eyes: reports: Reviewed and negative Cardiac: reports: Reviewed and negative Respiratory: reports: Reviewed and negative GI: reports: Reviewed and negative : reports: Dysuria, Frequency Musculoskeletal: reports: Neck pain, Back pain Neurologic: reports: Headache. 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: None : Incontinence HEENT: Chronic vision loss, Chronic hearing loss Psych: Depression, Anxiety, Bipolar disorder, Panic attacks Musculoskeletal: Osteoarthritis, Fibromyalgia, Chronic back pain Derm: Eczema - Past Surgical History Past Surgical History: Yes General: Colonoscopy, EGD, Other Ortho: Knee replacement, Rotator cuff repair, Arthroscopic surgery, Carpal Tunnel surgery, Spine surgery /MAINFRAME SYSTEMS ADMINISTRATOR: Dilation and currettage, Tubal ligation HEENT: Tonsil/Adenoidectomy - Present Medications Home Medications: Ambulatory Orders Medication Instructions Recorded Confirmed Levothyroxine Sodium 125 mcg PO DAILY 06/06/12 05/08/20 Albuterol Sulf [Ventolin Hfa 2 puffs INH QID 04/16/16 05/08/20 Inhaler] Montelukast [Singulair] 10 mg PO QPM 04/16/16 05/08/20 Atorvastatin [Lipitor] 40 mg PO DAILY 03/12/17 05/08/20 Quetiapine Fumarate [Seroquel] 300 mg PO DAILY 03/12/17 05/08/20 Levocetirizine Dihydrochloride 5 mg ORAL DAILY 07/02/18 05/08/20 metFORMIN [Glucophage] 1,000 tab ORAL BID 07/02/18 05/08/20 Albuterol Sulfate 2.5 mg IH PRN PRN 11/12/19 05/08/20 Desvenlafaxine [Desvenlafaxine ER] 100 mg PO DAILY 11/12/19 05/08/20 Mirabegron [Myrbetriq] 50 mg PO DAILY 11/12/19 05/08/20 Rizatriptan Benzoate [Rizatriptan] 10 mg PO PRN PRN 11/12/19 05/08/20 Topiramate 150 mg PO BID 11/12/19 05/08/20 tiZANidine [Zanaflex] 1 - 3 tab PO Q8H PRN 11/12/19 05/08/20 Omeprazole 40 mg PO DAILY 11/21/19 05/08/20 Erenumab-Aooe [Aimovig 140 mg INJ 05/09/20 Autoinjector] Gabapentin [Neurontin] 300 mg PO TID 05/09/20 05/09/20 Ketorolac Inj (30Mg) [Toradol Inj 30 mg INJ PRN 05/09/20 (30Mg)] Ketorolac [Toradol] 10 mg PO PRN 05/09/20 Methocarbamol [Robaxin-750] 750 mg PO 05/09/20 Nitrofurantoin Monohyd/M-Cryst 100 mg PO BID #10 cap 05/09/20 [Macrobid 100 mg Capsule] diazePAM [Valium] 5 mg PO TID PRN #15 tablet 05/09/20 - Allergies Allergies/Adverse Reactions: Allergies Allergy/AdvReac Type Severity Reaction Status Date / Time strawberry [[place]] Allergy Severe Rash Verified 05/08/20 22:47 sulfamethoxazole Allergy Mild Rash Verified 05/08/20 22:47 [From Septra] trimethoprim [From Septra] Allergy Mild Rash Verified 05/08/20 22:47 bacitracin Allergy Rash Verified 05/08/20 23:46 bee venom protein (honey bee) Allergy Respiratory Verified 05/08/20 23:51 butorphanol [From Stadol] Allergy Anaphylaxis Verified 05/08/20 23:51 hydromorphone [From Dilaudid] Allergy Rash Verified 05/08/20 23:46 meperidine [From Demerol] Allergy Rash Verified 05/08/20 23:46 orange Allergy Anaphylaxis Verified 05/08/20 23:51 vancomycin Allergy Rash Verified 05/08/20 23:46 codeine AdvReac Nausea Verified 05/08/20 23:51 morphine AdvReac Dizziness Verified 05/08/20 23:51 pregabalin [From Lyrica] AdvReac Headache Verified 05/08/20 23:46 solifenacin [From Vesicare] AdvReac Unknown Verified 05/08/20 23:51 sumatriptan [From Imitrex] AdvReac Headache Verified 05/08/20 23:51 vortioxetine AdvReac Headache Verified 05/08/20 23:51 [From Trintellix] - Social History Does the pt smoke?: No Smoking Status: Never smoker Does the pt drink ETOH?: No Does the pt have substance abuse?: No - Immunizations Immunizations are current?: Yes Immunizations: TDAP current <10years - POLST Patient has POLST: No PD ED PE NORMAL - Vitals Vital signs reviewed: Yes - General General: Alert and oriented X 3, No acute distress, Well developed/nourished - HEENT HEENT: Atraumatic, PERRL, EOMI, Pharynx benign - Neck Neck: Supple, no meningeal sign - Cardiac Cardiac: RRR, No murmur - Respiratory Respiratory: No respiratory distress, Clear bilaterally - Abdomen Abdomen: Soft, Non tender - Derm Derm: Normal color, Warm and dry - Neuro Neuro: Alert and oriented X 3, food dehydrator operator 2-12 intact, No motor deficit, No sensory deficit, Normal speech Eye Opening: Spontaneous Motor: Obeys Commands Verbal: Oriented GCS Score: 15 Results - Vitals Vitals: Vital Signs - 24 hr 05/08/20 05/09/20 05/09/20 22:42 01:11 01:32 Temperature 36.5 C 36.5 C Heart Rate 92 84 79 Respiratory 17 17 18 Rate Blood Pressure 149/69 H 135/65 H O2 Saturation 98 97 98 Oxygen O2 Source Room air - Labs Labs: Microbiology 05/08/20 22:45 Urine Culture - Preliminary Urine,Clean Catch Laboratory Tests 05/08/20 22:45 Urine Color YELLOW Urine Clarity SL. CLOUDY Urine pH 6.0 Ur Specific [place] 1.025 Urine Protein NEGATIVE Urine Glucose (UA) NEGATIVE Urine Ketones NEGATIVE Urine Occult Blood NEGATIVE Urine Nitrite POSITIVE H Urine Bilirubin NEGATIVE Urine Urobilinogen 0.2 (NORMAL) Ur Leukocyte Esterase TRACE H Urine RBC None Seen Urine WBC 6-10 H Ur Squamous Epith Cells NONE SEEN Urine Bacteria Many H Ur Microscopic Review INDICATED Urine Culture Comments INDICATED PD MEDICAL DECISION MAKING - ED course Complexity details: reviewed results, re-evaluated patient, considered differential, d/w patient ED course: patient has symptoms consistent with urinary tract infection, and her urinalysis is also consistent with UTI. She is given Macrobid and a prescription for same. As for her neck and back pain, and her migraine headache, the options for treatment were quite limited, considering the medication she has already been taking without relief (Toradol, Percocet), and considering her allergies which include sumatriptan and Dilaudid as well as morphine. Regarding morphine, she says she thinks she can take morphine but that it contributes to my blackouts. For obvious reasons morphine is does not given tonight. After further discussion, valium PO and I am fentanyl were given, as she does not recall having any problems with other of these medications. On reevaluation, she says she feels better but still has moderate amount of neck and back pain and headache and is thus given one more dose of IM fentanyl and then discharged as per her request. emergent testing is not indicated at this time beyond the urinalysis; she has had similar headaches before which, again, she identifies as consistent with previous migraine headaches, and she has had similar neck and back pain before, albeit not as severe Departure - Departure Disposition: 01 Home, Self Care Clinical Impression: Migraine, Cystitis Condition: Good Instructions: ED Headache Migraine, ED Neck Pain No Trauma, ED UTI Cystitis Female Follow-Up: Dyan Tirado PA-C [Primary Care Provider] - (Call to arrange for next available appointment) Prescriptions: Nitrofurantoin Monohyd/M-Cryst [Macrobid 100 mg Capsule] 100 mg PO BID #10 cap diazePAM [Valium] 5 mg PO TID PRN #15 tablet PRN Reason: Spasms Discharge Date/Time: 05/09/20 01:32
[2020-05-08] MEDS ORDERED: diazePAM 5 MG TABLET PO STA (23:51)
[2020-05-08] MEDS ORDERED: fentaNYL 100 MCG/2 ML VIAL IM STA (23:51)
[2020-05-08] MEDS ORDERED: NITROFURANTOIN MACRO 100 MG CAPSULE PO STA (23:51)
[2020-05-08] MEDS ORDERED: DEXAMETHASONE 10 MG/ML VIAL PO STA (23:52)
[2020-05-08] MEDS ORDERED: CHERRY SYRUP 10 ML UDC PO ONE (23:52)
[2020-05-09] MEDS ORDERED: fentaNYL 100 MCG/2 ML VIAL IM STA (01:12)
[2020-05-09 01:34] VITALS: BP 135/65
--- OUTSIDE RECORDS SUMMARY | 2020-05-13 02:23 | EXTERNAL MEDICAL SUMMARY RPT | Continuity of Care Document ---
:1955 Demographics Phone Unavailable Preferred Language Unknown Marital Status Unknown Rastafarian Affiliation Unknown Race Unknown Ethnic Group Unknown Author Organization [place] Address [address] [phone] Phone Social History date description facility [phone]
== END 2020-05-09 01:32 | disposition home or self-care (01) ==
LOC: ED 22:35
DX: N30.90 Cystitis, unspecified without hematuria (principal); G43.909 Migraine, unspecified, not intractable, without status migrainosus; E11.9 Type 2 diabetes mellitus without complications; Z79.84 Long term (current) use of oral hypoglycemic drugs
CPT/HCPCS: 81001; 87077; 87086; 87181; 96372; 99283; 99284; A9270; 81003

== ENCOUNTER 2020-10-12 12:11 | Outpatient (CLI) | payer MEDICARE, OTHER, MEDICAID | END 2020-10-12 12:12 | disposition home or self-care (01) | LOC: LAB.N 12:11 | PROVIDERS: ATTEND Physician Assistant | DX: Z01.812 Encounter for preprocedural laboratory examination (principal); Z20.822 Contact with and (suspected) exposure to COVID-19 ==

== ENCOUNTER 2020-11-04 08:00 | Outpatient (CLI) | payer MEDICARE, OTHER, MEDICAID ==
[2020-11-04 17:46] LABS: BASOPHILS # (AUTO) 0.1 10^3/uL (0.0-0.1); BASOPHILS % (AUTO) 1.2 %; EOSINOPHILS # (AUTO) 0.2 10^3/uL (0.0-0.7); EOSINOPHILS % (AUTO) 3.4 %; HCT - HEMATOCRIT 41.1 % (37.0-47.0); HGB - HEMOGLOBIN 12.6 g/dL (12.0-16.0); LYMPHOCYTES # (AUTO) 1.3 10^3/uL (1.5-3.5); LYMPHOCYTES % (AUTO) 19.6 %; MEAN CORPUSCULAR HEMOGLOBIN 28.3 pg (27.0-31.0); MEAN CORPUSCULAR HGB CONC 30.7 g/dL (32.0-36.0); MEAN CORPUSCULAR VOLUME 92.4 fL (81.0-99.0); MEAN PLATELET VOLUME 10.5 fL (7.9-10.8); MONOCYTES # (AUTO) 0.5 10^3/uL (0.0-1.0); MONOCYTES % (AUTO) 7.4 %; NEUTROPHILS # (AUTO) 4.6 10^3/uL (1.5-6.6); NEUTROPHILS % (AUTO) 68.1 %; PLT - PLATELET COUNT 216 10^3/uL (130-450); RED BLOOD COUNT 4.45 10^6/uL (4.20-5.40); RED CELL DISTRIBUTION WIDTH 14.8 % (12.0-15.0); WHITE BLOOD COUNT 6.8 x10^3/uL (4.8-10.8)
[2020-11-04 18:02] LABS: ALBUMIN 3.8 g/dL (3.2-5.5); ALBUMIN/GLOBULIN RATIO 1.2 (1.0-2.2); ALKALINE PHOSPHATASE 125 IU/L (42-121); ALT ALANINE AMINOTRANSFERASE 17 IU/L (10-60); AST ASPARTATE AMINOTRANSFERASE 16 IU/L (10-42); BILIRUBIN,TOTAL 0.3 mg/dL (0.2-1.0); BUN - BLOOD UREA NITROGEN 16 mg/dL (6-20); CALCIUM 8.8 mg/dL (8.5-10.3); CARBON DIOXIDE - CO2 25 mmol/L (21-32); CHLORIDE 107 mmol/L (101-111); CHOL/HDL RATIO 2.7 (<4.4); CHOLESTEROL 185 mg/dL; CREATININE 0.8 mg/dL (0.4-1.0); GFR - MDRD 72 (>89); GLUCOSE 103 mg/dL (70-100); HDL CHOLESTEROL 68 mg/dL; LDL CHOLESTEROL,CALCULATED 95 mg/dL; LDL/HDL RATIO 1.4 (<4.4); POTASSIUM 4.1 mmol/L (3.5-5.0); SODIUM 141 mmol/L (135-145); TRIGLYCERIDES 108 mg/dL; VLDL CHOLESTEROL 22 mg/dL
[2020-11-04 21:11] LABS: ESTIMATED AVERAGE GLUCOSE 128 mg/dL (70-100); HEMOGLOBIN A1c% 6.1 % (4.27-6.07)
== END 2020-11-04 23:59 | disposition home or self-care (01) ==
LOC: LAB.WCP 08:00
PROVIDERS: ATTEND Physician Assistant Medical
DX: K21.9 Gastro-esophageal reflux disease without esophagitis (principal); E11.9 Type 2 diabetes mellitus without complications
CPT/HCPCS: 36415; 80053; 80061; 83036; 83721; 85025

== ENCOUNTER 2020-11-27 07:00 | Outpatient (CLI) | payer MEDICARE, OTHER, MEDICAID | END 2020-11-27 23:59 | disposition home or self-care (01) | LOC: COV 07:00 | PROVIDERS: ATTEND Physician Assistant Surgical | DX: U07.1 COVID-19 (principal) ==

== ENCOUNTER 2020-12-10 12:54 | Outpatient (CLI) | payer MEDICARE, OTHER, MEDICAID ==
[2020-12-10 13:50] VITALS: BP 132/70
--- NOTE | 2020-12-10 13:50 | SLEEP CARE CONSULTATION ---
Information from patient questionnaire entered by Ramona Avila MA. I have reviewed and concur with the information entered by Ramona Avila MA. This document represents the service I personally performed and the decisions made by , Radha De La Torre ARNP. History of Present Illness Service Date and Time: 12/10/2020 1254 Previous diagnosis: Moderate, Obstructive Sleep Apnea-Hypopnea Syndrome AHI: 19.7 Reason for follow up: annual Equipment type: CPAP Equipment obtained from: [facility] Mask style: Nasal Backup mask available: Yes (old mask) HPI additional information: ELIOT ALEJANDRO was diagnosed to have moderate, AHI 19.7, obstructive sleep apnea- hypopnea syndrome and returned today for CPAP therapy annual follow-up with recall questions. CPAP Compliance Data - Data Reviewed with Patient Average duration of nightly device use: 5 hours 58 minutes Compliance rate %: 95.6 Average residual AHI: 15.8 Average large leak: 4 minutes 25 seconds Subjective Missed days of use due to: reports: other (told not to due to recall) Patient concerns: denies: aerophagia, mask discomfort, air blowing in eyes, mask leak noise, condensation in mask/hose, nasal congestion, dry mouth, nose, throat, epistaxis, other Observed to snore while using device: No Current pressure setting perceived as: comfortable On therapy, patient: reports: sleeping better, awakening more refreshed, being more awake and alert during the day, more rested overall. denies: drowsiness while driving Initial [place] Sleepiness Scale score: 15 Current [place] Sleepiness Scale score: 9 (2020) Allergies and Home Medications Home medication list reviewed: Yes (no changes) Review of Systems Review of systems same as previous: No (having bariatric surgery January 12) Physical Exam Vital signs obtained and entered by: RODOLFO Tolentino Blood Pressure: 132/70 (left) Cuff size: wrist Heart Rate: 96 O2 Saturation: 97 (with mask) Height: 5 ft 4 in Weight: 250 lb (on diet for weightloss surg) Body Mass Index: 42.9 BMI Classification: Morbidly Obese Impression and Plan 1. Obstructive Sleep Apnea-Hypopnea Syndrome, moderate, with good treatment compliance and good apnea control. On CPAP therapy, the patient has better sleep quality and is more rested overall. Patient had questions about current recall on her CPAP device. She was told by her [employer] company not to use her CPAP due to the recall. She stopped using it. Patient was encouraged to register their device online with [employer] for the recall to see if their device is affected. If their device is affected they should start a claim. Patient has seen black debris in her device. Patient is in less severe on her side and may practice positional therapy by staying off their back to control apnea or try to obtain an oral appliance to control apnea. Patient voiced understanding and agreement with plan. Patient will try sleeping on her side to control apnea. She is scheduled to have bariatric surgery. She has already started losing weight by following diet prescribed by her surgeon. Patient will contact us when she obtains her new device from [employer] for a followup. Patient's apnea severity and rationale for treatment to reduce apnea, improve sleep quality and reduce card iovascular and cerebrovascular events was reviewed. I also reviewed the benefit of consistent device use of CPAP for hypertension and cerebrovascular disease. * Patient to call [employer] to register her device for recall * Positional therapy until her CPAP replaced * Notify me if snoring with mask or feeling that the pressure is too much or too little * Continue to try to lose weight * Call this office if any problems using CPAP * Return for follow up in 1 year, or sooner if concerns arise Counseling Topics: Weight loss health impact Visit Type: In Office Time Spent with Patient (minutes): 22 Provider Statement: I spent 100% of the Face to Face Visit with the patient with greater than 50% spent counseling the patient and coordination of care.
== END 2020-12-10 12:55 | disposition home or self-care (01) ==
LOC: SC 12:54
PROVIDERS: ATTEND Nurse Practitioner Family
DX: G47.33 Obstructive sleep apnea (adult) (pediatric) (principal); E66.01 Morbid (severe) obesity due to excess calories; Z68.42 Body mass index [BMI] 45.0-49.9, adult
CPT/HCPCS: 99213; G0463; 99212

== ENCOUNTER 2021-02-02 08:00 | Outpatient (CLI) | payer MEDICARE, OTHER, MEDICAID | END 2021-02-02 23:59 | disposition home or self-care (01) | LOC: LAB.WCP 08:00 | PROVIDERS: ATTEND Physician Assistant Medical | DX: L08.9 Local infection of the skin and subcutaneous tissue, unspecified (principal) | CPT/HCPCS: 87070; 87181; 87205 ==

== ENCOUNTER 2021-07-21 12:06 | Outpatient (CLI) | payer MEDICARE, OTHER, MEDICAID | END 2021-07-21 12:07 | disposition critical access hospital (66) | LOC: EMS 12:06 | DX: R29.810 Facial weakness (principal); R47.81 Slurred speech; R53.1 Weakness | CPT/HCPCS: A0425; A0427 ==

== ENCOUNTER 2021-07-21 12:34 | Observation (INO) | payer MEDICARE, OTHER, MEDICAID ==
--- NOTE | 2021-07-21 12:43 | ED Physician Documentation ---
History of Present Illness - Stated complaint Stated Complaint: CODE STROKE - Additonal information Additional information: 65-year-old female is brought to the emergency department via EMS for evaluation of acute right-sided weakness. She does have a history of a TIA approximately 2 years ago though no residual deficits. She went to bed as usual last night at 11 PM when she woke up this morning about 11 AM she found that she had extreme right-sided weakness. Blood glucose was 79 for EMS. Room air saturations 97% she was normotensive at 110/64. Past medical history includes asthma, TIA, diabetes, hypothyroidism, history of gastric bypass, anxiety, bipolar disorder Meds: Advair, atorvastatin, metformin, meclizine, albuterol, omeprazole, gabapentin, levothyroxine, Seroquel, hydrochlorothiazide, Ambien Review of Systems Constitutional: reports: Reviewed and negative Ears: reports: Reviewed and negative Throat: reports: Reviewed and negative Cardiac: reports: Reviewed and negative Respiratory: reports: Reviewed and negative GI: reports: Reviewed and negative : reports: Reviewed and negative Neurologic: reports: Headache PD PAST MEDICAL HISTORY - Past Medical History Cardiovascular: High cholesterol Respiratory: Asthma, Sleep apnea, CPAP use Neuro: Migraines, Multiple sclerosis Endocrine/Autoimmune: Type 2 diabetes GI: GERD 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 FISH: None : Incontinence HEENT: Chronic vision loss, Chronic hearing loss Psych: Depression, Anxiety, Bipolar disorder, Panic attacks Musculoskeletal: Osteoarthritis, Fibromyalgia, Chronic back pain Derm: Eczema - Past Surgical History Past Surgical History: Yes General: Colonoscopy, EGD, Other Ortho: Knee replacement, Rotator cuff repair, Arthroscopic surgery, Carpal Tunnel surgery, Spine surgery /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 TECHNICIAN FISH: Dilation and currettage, Tubal ligation HEENT: Tonsil/Adenoidectomy - Present Medications Home Medications: Ambulatory Orders Medication Instructions Recorded Confirmed Levothyroxine Sodium 125 mcg PO DAILY 06/06/12 05/08/20 Albuterol Sulf [Ventolin Hfa 2 puffs INH QID 04/16/16 05/08/20 Inhaler] Montelukast [Singulair] 10 mg PO QPM 04/16/16 05/08/20 Atorvastatin [Lipitor] 40 mg PO DAILY 03/12/17 05/08/20 Quetiapine Fumarate [Seroquel] 300 mg PO DAILY 03/12/17 05/08/20 Levocetirizine Dihydrochloride 5 mg ORAL DAILY 07/02/18 05/08/20 metFORMIN [Glucophage] 1,000 tab ORAL BID 07/02/18 05/08/20 Albuterol Sulfate 2.5 mg IH PRN PRN 11/12/19 05/08/20 Desvenlafaxine [Desvenlafaxine ER] 100 mg PO DAILY 11/12/19 05/08/20 Mirabegron [Myrbetriq] 50 mg PO DAILY 11/12/19 05/08/20 Rizatriptan Benzoate [Rizatriptan] 10 mg PO PRN PRN 11/12/19 05/08/20 Topiramate 150 mg PO BID 11/12/19 05/08/20 tiZANidine [Zanaflex] 1 - 3 tab PO Q8H PRN 11/12/19 05/08/20 Omeprazole 40 mg PO DAILY 11/21/19 05/08/20 Erenumab-Aooe [Aimovig 140 mg INJ 05/09/20 Autoinjector] Gabapentin [Neurontin] 300 mg PO TID 05/09/20 05/09/20 Ketorolac Inj (30Mg) [Toradol Inj 30 mg INJ PRN 05/09/20 (30Mg)] Ketorolac [Toradol] 10 mg PO PRN 05/09/20 Nitrofurantoin Monohyd/M-Cryst 100 mg PO BID #10 cap 05/09/20 [Macrobid 100 mg Capsule] diazePAM [Valium] 5 mg PO TID PRN #15 tablet 05/09/20 methocarbamoL [Robaxin-750] 750 mg PO 05/09/20 - Allergies Allergies/Adverse Reactions: Allergies Allergy/AdvReac Type Severity Reaction Status Date / Time strawberry [Gaylord] Allergy Severe Rash Verified 07/21/21 12:39 sulfamethoxazole Allergy Mild Rash Verified 07/21/21 12:39 [From Septra] trimethoprim [From Septra] Allergy Mild Rash Verified 07/21/21 12:39 bacitracin Allergy Rash Verified 07/21/21 12:39 bee venom protein (honey bee) Allergy Respiratory Verified 07/21/21 12:39 butorphanol [From Stadol] Allergy Anaphylaxis Verified 07/21/21 12:39 hydromorphone [From Dilaudid] Allergy Rash Verified 07/21/21 12:39 meperidine [From Demerol] Allergy Rash Verified 07/21/21 12:39 orange Allergy Anaphylaxis Verified 07/21/21 12:39 vancomycin Allergy Rash Verified 07/21/21 12:39 codeine AdvReac Nausea Verified 07/21/21 12:39 morphine AdvReac Dizziness Verified 07/21/21 12:39 pregabalin [From Lyrica] AdvReac Headache Verified 07/21/21 12:39 solifenacin [From Vesicare] AdvReac Unknown Verified 07/21/21 12:39 sumatriptan [From Imitrex] AdvReac Headache Verified 07/21/21 12:39 vortioxetine AdvReac Headache Verified 07/21/21 12:39 [From Trintellix] - Social History Does the pt smoke?: No Smoking Status: Never smoker Does the pt drink ETOH?: No Does the pt have substance abuse?: No - Immunizations Immunizations are current?: Yes Immunizations: TDAP current <10years - POLST Patient has POLST: No PD ED PE EXPANDED - General General: Alert, No acute distress - Cardiac Cardiac: Regular Rate, Radial strong equal, Pedal strong equal, Cap refill < 2 sec - Respiratory Respiratory: Clear to ausultation alcon. No: Distress, Labored - Abdomen Abdomen: Normal Bowel sounds. No: Tender to palpation - Back Back: Normal exam - Derm Derm: Normal color, Warm and dry. No: Rash - Extremities Extremities: Normal. No: Deformity, Tenderness - Neuro Neuro: Alert and Oriented X 3, CNII-XII intact, Normal speech - GCS Eye Opening: Spontaneous Motor: Obeys Commands Verbal: Oriented Total: 15 Results - Vitals Vitals: Vital Signs - 24 hr 07/21/21 07/21/21 07/21/21 12:35 13:15 13:30 Temperature 37.1 C Heart Rate 79 75 77 Respiratory 11 L 8 L 10 L Rate Blood Pressure 102/62 119/71 117/72 O2 Saturation 100 99 98 Oxygen O2 Source Room air - EKG (time done) 1252 Rate: Rate (enter#) (74) Rhythm: NSR [place]: Normal Intervals: Normal [place]. No: Prolonged QT Ischemia: Q waves (inferior leads) Compare to prior EKG: Old EKG unavailable Computer interpretation: Agree with computer - Labs Labs: Laboratory Tests 07/21/21 07/21/21 07/21/21 12:47 12:47 12:47 WBC 5.1 RBC 4.20 Hgb 13.2 Hct 39.6 MCV 94.3 MCH 31.4 H MCHC 33.3 RDW 13.2 Plt Count 176 MPV 9.8 Neut # (Auto) 3.4 Lymph # (Auto) 1.2 L [place] # (Auto) 0.3 Eos # (Auto) 0.1 Baso # (Auto) 0.0 Absolute Nucleated RBC 0.00 Nucleated RBC % 0.0 PT 11.4 INR 1.0 Sodium 142 Potassium 2.7 L Chloride 102 Carbon Dioxide 29 Anion Gap 11.0 BUN 14 Creatinine 0.9 Estimated GFR (MDRD) 63 L Glucose 89 Calcium 8.9 Total Bilirubin 0.8 AST 20 ALT 22 Alkaline Phosphatase 114 Total Protein 6.6 L Albumin 3.6 Globulin 3.0 Albumin/Globulin Ratio 1.2 Lipase 24 TSH 07/21/21 12:47 WBC RBC Hgb Hct MCV MCH MCHC RDW Plt Count MPV Neut # (Auto) Lymph # (Auto) [place] # (Auto) Eos # (Auto) Baso # (Auto) Absolute Nucleated RBC Nucleated RBC % PT INR Sodium Potassium Chloride Carbon Dioxide Anion Gap BUN Creatinine Estimated GFR (MDRD) Glucose Calcium Total Bilirubin AST ALT Alkaline Phosphatase Total Protein Albumin Globulin Albumin/Globulin Ratio Lipase TSH 0.19 L - Rads (name of study) cxr Radiology: Final report received (no acute findings) CT head Radiology: Final report received (Unremarkable noncontrast head CT for age stable from prior.) PD MEDICAL DECISION MAKING - ED course Complexity details: re-evaluated patient, considered differential, d/w patient ED course: 1240: 65-year-old female presents emergency department via EMS for evaluation of acute right-sided deficits. She was last known normal at 11 PM last night when she went to bed. When she woke up at about 11 this morning she found that she could not move her right arm or right leg. Her NIHSS score currently is 9. She does have a history of a TIA 2 years ago with no residual deficits. She is not anticoagulated. 1340: I spoke with Dr. Mojica telestroke neurologist and she is doing the video interview with the patient. Given that the patient's NIH stroke scale is 9 based him only on right arm and leg weakness this less likely represents a large vessel occlusion and more likely a lacunar infarct. Would not recommend tPA. Does recommend loading with aspirin and Plavix. There were times during the telestroke evaluation where the patient was seen to be moving her right arm spontaneously when distracted. In any event she would recommend an MRI to fully rule out any type of infarct. Given the history of previous spinal stimulator that has subsequently been removed and the wires remain in place this may prove difficult. If unable to obtain an MRI she would recommend a 24-hour CT Plan and findings have been discussed with our admitting hospitalist Dr. Thrasher as well as patient and her who are in agreement to observation admission. Further care to be dictated by the inpatient team. Departure - Departure Disposition: ED Place in Observation Clinical Impression: Stroke-like symptoms, Right-sided muscle weakness NIHSS - Time Time: 12:40 - Level of Consciousness Level of consciousness: (0) Alert, Keenly responsive LOC Questions: (0) Answers both Q's correct LOC Commands: (0) Performs both correctly - Gaze Best Gaze: (0) Normal - Visual Visual: (0) No loss - Facial Palsy Facial Palsy: (1) Minor paralysis - Motor Arms (both separate) Motor Arm (right): (3) No effort against gravity Motor Arm (left): (0) No drift - Motor Legs (both separate) Motor Leg (right): (3) No effort against gravity Motor Leg (left): (0) No drift - Limb Ataxia Limb Ataxia: (2) Present in 2 limbs - Sensory Sensory: (0) Normal - Best Language Best Language: (0) No aphasia - Dysarthria Dysarthria: (0) Normal - Extinction and Inattention (formally neg Extinction and inattention: (0) No abnormality - Total Score/Results Total Score/Result: 9
[2021-07-21 12:56] LABS: BASOPHILS % (AUTO) 0.8 %; EOSINOPHILS # (AUTO) 0.1 10^3/uL (0.0-0.7); EOSINOPHILS % (AUTO) 2.7 %; HCT - HEMATOCRIT 39.6 % (37.0-47.0); HGB - HEMOGLOBIN 13.2 g/dL (12.0-16.0); LYMPHOCYTES # (AUTO) 1.2 10^3/uL (1.5-3.5); LYMPHOCYTES % (AUTO) 23.9 %; MEAN CORPUSCULAR HEMOGLOBIN 31.4 pg (27.0-31.0); MEAN CORPUSCULAR HGB CONC 33.3 g/dL (32.0-36.0); MEAN CORPUSCULAR VOLUME 94.3 fL (81.0-99.0); MEAN PLATELET VOLUME 9.8 fL (7.9-10.8); MONOCYTES # (AUTO) 0.3 10^3/uL (0.0-1.0); MONOCYTES % (AUTO) 6.5 %; NEUTROPHILS # (AUTO) 3.4 10^3/uL (1.5-6.6); NEUTROPHILS % (AUTO) 65.7 %; PLT - PLATELET COUNT 176 10^3/uL (130-450); RED CELL DISTRIBUTION WIDTH 13.2 % (12.0-15.0); WHITE BLOOD COUNT 5.1 x10^3/uL (4.8-10.8)
[2021-07-21 13:09] LABS: ALBUMIN 3.6 g/dL (3.2-5.5); ALBUMIN/GLOBULIN RATIO 1.2 (1.0-2.2); BILIRUBIN,TOTAL 0.8 mg/dL (0.2-1.0); CALCIUM 8.9 mg/dL (8.5-10.3); CREATININE 0.9 mg/dL (0.4-1.0); POTASSIUM 2.7 mmol/L (3.5-5.0); TOTAL PROTEIN 6.6 g/dL (6.7-8.2)
[2021-07-21 13:20] LABS: PT - PROTHROMBIN TIME 11.4 secs (9.9-12.6)
--- NOTE | 2021-07-21 13:22 | CT Report ---
PROCEDURE: HEAD WO INDICATIONS: right sided paresis TECHNIQUE: Noncontrast 4.5 mm thick angled axial sections acquired from the foramen magnum to the vertex. For r adiation dose reduction, the following was used: automated exposure control, adjustment of mA and/or kV according to patient size. COMPARISON: 05/09/2019, 12/24/2015, 08/16/2013 FINDINGS: Image quality: Excellent. CSF spaces: Basal cisterns are patent. No extra-axial fluid collections. Ventricles are normal in size and shape. Brain: No midline shift. No intracranial masses or hemorrhage. Hernandez-white matter interface is norm al. Skull and face: Calvarium and visualized facial bones are intact, without suspicious lesions. Hyper ostosis frontalis is incidentally noted, which is not frankly abnormal for a female patient of this a ge. Sinuses: Visualized sinuses and mastoids are clear. IMPRESSION: Unremarkable noncontrast head CT for age, stable from prior. If there is strong clinical concern for a stroke, please consider a dedicated brain MRI for further e valuation (assuming that there is no contraindication to MRI). Reviewed by: Hector Abrams MD on 07/21/2021 12:21 PM BEENA Approved by: Hector Abrams MD on 07/21/2021 12:21 PM BEENA Station ID: [id number]
[2021-07-21] MEDS ORDERED: CLOPIDOGREL 300 MG TABLET PO STA (13:41)
[2021-07-21] MEDS ORDERED: ASPIRIN CHEW 81 MG TABLET PO STA (13:41)
--- NOTE | 2021-07-21 14:01 | XRAY Report ---
PROCEDURE: Chest 1 View X-Ray INDICATIONS: Chest pain TECHNIQUE: One view of the chest was acquired. COMPARISON: 12/16/2019 FINDINGS: Surgical changes and devices: None. Lungs and pleura: No pleural effusions or pneumothorax. Lungs are clear. Mediastinum: Mediastinal contours appear normal. Heart size is normal. Bones and chest wall: No suspicious bony lesions. Overlying soft tissues appear unremarkable. IMPRESSION: No acute cardiopulmonary process demonstrated radiographically. Reviewed by: Emilio Dacosta MD on 07/21/2021 1:59 PM PDT Approved by: Emilio Dacosta MD on 07/21/2021 1:59 PM PDT Station ID: [id number]
[2021-07-21 14:16] LABS: BILIRUBIN,URINE NEGATIVE (NEGATIVE); GLUCOSE, URINE (UA) NEGATIVE (NEGATIVE); KETONES,URINE (UA) NEGATIVE (NEGATIVE); LEUKOCYTE ESTERASE, URINE TRACE (NEGATIVE); NITRITE,URINE POSITIVE (NEGATIVE); OCCULT BLOOD,URINE NEGATIVE (NEGATIVE); PROTEIN,URINE NEGATIVE (NEGATIVE); UROBILINOGEN,URINE 0.2 (NORMAL) E.U./dL (NORMAL)
[2021-07-21 14:29] LABS: CLARITY,URINE HAZY (CLEAR)
[2021-07-21 14:30] LABS: BACTERIA,URINE Moderate /HPF (None Seen); RBC,URINE 0-5 /HPF (0-5); SQUAMOUS EPITHELIAL CELL,UR FEW Squamous (<= Few)
[2021-07-21] MEDS ORDERED: SODIUM CHLORIDE FLUSH 0.9% 10 ML SYRINGE IVP PRN (15:02)
[2021-07-21] MEDS ORDERED: ACETAMINOPHEN 325 MG TABLET PO PRN (15:02)
[2021-07-21] MEDS ORDERED: POTASSIUM CHLORIDE 20 MEQ TABLET PO STA ×2 (15:14→17:21)
[2021-07-21] MEDS: POTASSIUM CHLOR 10 MEQ/100 ML 10 MEQ/100 ML BAG IV SCH ×3 (17:30→21:38)
[2021-07-21] MEDS: SODIUM CHLORIDE FLUSH 0.9% 10 ML SYRINGE IVP SCH (17:31)
--- NOTE | 2021-07-21 18:40 | HISTORY & PHYSICAL EXAMINATION ---
Chief Complaint - Chief Complaint Chief Complaint: R sided weakness and numbness History of Present Illness - Admitted From Admitted From:: ED - History Obtained From History obtained from: ED provider and the patient - History of Present Illness HPI Comment/Other: This is a 65-year-old white female with a history of diabetes on Metformin, Hx of prior TIA which was right arm and leg weakness that resolved, migraines, bipolar disorder and multiple sclerosis. She says she also has "conversion disorder" which gives her sudden "drop attacks". Because of this she stopped driving in 2003. She had gagtric bypass surgery. Patient went to bed at 11 PM last night feeling her usual self and at 11 AM this morning, upon awakening, had right arm and leg weakness. EMS was called. Glucose at the scene was 79. Upon presentation to the ED her NIH stroke score was 9. She had a CT of the head which showed no acute findings. A telestroke consult was done with Dr. Mojica. The Neurologist advised to give her aspirin and Plavix loading. There was no imaging done to evaluate for large vessel occlusion and tPA was not recommended. In the ED, Nurses noticed that she was using her right arm and typing on her phone with her right fingers when she was not being observed. Neurologist recommended that a lacunar stroke be ruled out by undergoing a CT of the head at 24 hours. An MRI could not be done because the patient has wires from an old stimulator in her back that are still implanted, but the stimulator box has been removed. In the ED, the reported that the patient was having "pain in her chest with breathing". An repeat EKG was done and there were no changes from the first EKG. A chest x-ray had already been done and was within normal limits. No further imaging was done since she was not desaturating and respiratory rate was 9. Upon arriving to her hospital room, the [facility] Nurse noticed that the patient reacted to a painful IV in the R arm, by moving her entire right arm to painful stimuli and stating that this must have been a "spasm" (she was getting a potassium iv Simone). I discussed CODE STATUS with this patient and she wants to be a Full Code. History - Past Medical History Cardiovascular: reports: High cholesterol Respiratory: reports: Asthma, Sleep apnea, CPAP use Neuro: reports: Migraines, Multiple sclerosis Endocrine/Autoimmune: reports: Type 2 diabetes GI: reports: GERD TRADE UNION OFFICIAL: reports: None : reports: Incontinence HEENT: reports: Chronic vision loss, Chronic hearing loss Psych: reports: Depression, Anxiety, Bipolar disorder, Panic attacks Musculoskeletal: reports: Osteoarthritis, Fibromyalgia, Chronic back pain Derm: reports: Eczema MRSA Hx?: Yes - Past Surgical History General: reports: Colonoscopy, EGD, Other Ortho: reports: Knee replacement, Rotator cuff repair, Arthroscopic surgery, Carpal Tunnel surgery, Spine surgery /TRADE UNION OFFICIAL: reports: Dilation and currettage, Tubal ligation HEENT: reports: Tonsil/Adenoidectomy - Family & Social History Family History Comment/Other: No diseases run in the family. She has 4 adult children. 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 She no longer drives a car ever since diagnosed with "conversion disorder" in 2003. She quit smoking with her first . She drinks no alcohol, and remotely she had only social alcohol intake. She uses no marijuana or any other drugs. - POLST Patient has POLST: No Meds/Allgy - Home Medications Home Medications: Ambulatory Orders Medication Instructions Recorded Confirmed Levothyroxine Sodium 125 mcg PO DAILY 06/06/12 05/08/20 Albuterol Sulf [Ventolin Hfa 2 puffs INH QID 04/16/16 05/08/20 Inhaler] Montelukast [Singulair] 10 mg PO QPM 04/16/16 05/08/20 Atorvastatin [Lipitor] 40 mg PO DAILY 03/12/17 05/08/20 Quetiapine Fumarate [Seroquel] 300 mg PO DAILY 03/12/17 05/08/20 Levocetirizine Dihydrochloride 5 mg ORAL DAILY 07/02/18 05/08/20 metFORMIN [Glucophage] 1,000 tab ORAL BID 07/02/18 05/08/20 Albuterol Sulfate 2.5 mg IH PRN PRN 11/12/19 05/08/20 Desvenlafaxine [Desvenlafaxine ER] 100 mg PO DAILY 11/12/19 05/08/20 Mirabegron [Myrbetriq] 50 mg PO DAILY 11/12/19 05/08/20 Rizatriptan Benzoate [Rizatriptan] 10 mg PO PRN PRN 11/12/19 05/08/20 Topiramate 150 mg PO BID 11/12/19 05/08/20 tiZANidine [Zanaflex] 1 - 3 tab PO Q8H PRN 11/12/19 05/08/20 Omeprazole 40 mg PO DAILY 11/21/19 05/08/20 Erenumab-Aooe [Aimovig 140 mg INJ 05/09/20 Autoinjector] Gabapentin [Neurontin] 300 mg PO TID 05/09/20 05/09/20 Ketorolac Inj (30Mg) [Toradol Inj 30 mg INJ PRN 05/09/20 (30Mg)] Ketorolac [Toradol] 10 mg PO PRN 05/09/20 Nitrofurantoin Monohyd/M-Cryst 100 mg PO BID #10 cap 05/09/20 [Macrobid 100 mg Capsule] diazePAM [Valium] 5 mg PO TID PRN #15 tablet 05/09/20 methocarbamoL [Robaxin-750] 750 mg PO 05/09/20 - Allergies Allergies/Adverse Reactions: Allergies Allergy/AdvReac Type Severity Reaction Status Date / Time strawberry [Vest] Allergy Severe Rash Verified 07/21/21 12:39 sulfamethoxazole Allergy Mild Rash Verified 07/21/21 12:39 [From ] trimethoprim [From Octra] Allergy Mild Rash Verified 07/21/21 12:39 bacitracin Allergy Rash Verified 07/21/21 12:39 bee venom protein (honey bee) Allergy Respiratory Verified 07/21/21 12:39 butorphanol [From Stadol] Allergy Anaphylaxis Verified 07/21/21 12:39 hydromorphone [From Dilaudid] Allergy Rash Verified 07/21/21 12:39 meperidine [From Demerol] Allergy Rash Verified 07/21/21 12:39 orange Allergy Anaphylaxis Verified 07/21/21 12:39 vancomycin Allergy Rash Verified 07/21/21 12:39 codeine AdvReac Nausea Verified 07/21/21 12:39 morphine AdvReac Dizziness Verified 07/21/21 12:39 pregabalin [From Lyrica] AdvReac Headache Verified 07/21/21 12:39 solifenacin [From Vesicare] AdvReac Unknown Verified 07/21/21 12:39 sumatriptan [From Imitrex] AdvReac Headache Verified 07/21/21 12:39 vortioxetine AdvReac Headache Verified 07/21/21 12:39 [From Trintellix] Review of Systems - Constitutional Constitutional: reports: Weakness - Eyes Eyes: reports: Other (Poor vision and poor hearing) - Respiratory Respiratory: reports: Other (Asthmatic wheezing) - Gastrointestinal Gastrointestinal: reports: Reflux/heartburn - Neurological Neurological: reports: Other (Has migraines. Gets "drop attacks" which were diagnosed as "conversion disorder".) - All Other Systems All Other Systems: reports: Reviewed and negative Exam - Vital Signs Vital Signs: Vital Signs x48h Temp Pulse Pulse Resp BP BP Pulse Ox 07/21/21 16:30 36.9 C 71 17 121/56 L 97 07/21/21 15:30 73 9 L 116/61 98 07/21/21 15:00 67 11 L 96/77 100 07/21/21 14:30 73 12 107/75 100 07/21/21 14:00 95 15 117/72 100 07/21/21 13:30 77 10 L 117/72 98 07/21/21 13:15 75 8 L 119/71 99 07/21/21 12:35 37.1 C 79 11 L 102/62 100 - Physical Exam General Appearance: positive: No acute distress, Alert Eyes Bilateral: positive: Normal inspection, EOMI ENT: positive: ENT inspection nml, No signs of dehydration Neck: positive: Nml inspection, No JVD, Other (No carotid bruits) Respiratory: positive: No respiratory distress, Breath sounds nml Cardiovascular: positive: Regular rate & rhythm, No murmur, No gallop Abdomen: positive: Non-tender, Nml bowel sounds, No distention Skin: positive: Warm, Dry Extremities: positive: Non-tender, No pedal edema Neurologic/Psychiatric: positive: Other (R arm and leg have tingling and abn sensation. 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 R foot had 3/5 strength.) Conclusion/Plan - Problem List (1) Stroke-like symptoms Conclusion/Plan: The patient's complaints of both motor and sensory abnormality of the right arm and leg would indicate a large distribution of neurologic damage. Nothing was seen acutely on CT. The neurologist recommends a follow-up CT in 24 hours which will be done. The patient will be placed in Observation status Telemetry ordered to watch for A. fib. Echo with saline bubble study ordered to evaluate a cardiac source of embolus. Will also order carotid Dopplers. Check her A1c and obtain fasting lipid panel in the morning. (2) Conversion disorder Conclusion/Plan: The patient herself reported that she has this disorder. The concern is that she currently is malingering and that these are neurotic symptoms, since she has already been "caught" 2 or 3 times to be moving the right arm and fingers when nobody is watching, she then however does not cooperate with motor exam of the right hand, for example and scores a 0/5 exam. We will continue all her usual psychiatric medications while here, once the list is reconciled. (3) Diabetes mellitus type 2, noninsulin dependent Conclusion/Plan: Patient says she checks her morning blood sugar. She says her "morning glucose level without Metformin is 113-114 but on metformin it is 60-70". When asked if she has hypoglycemic symptoms like sweating or nervousness with glucose levels of 60-70 she denies them. We will not order her metformin while here, since she may need imaging using contrast dye. Will check a morning A1c. Will order a carb controlled diet and fingerstick checks and insulin coverage. (4) Hypokalemia Conclusion/Plan: This is likely from being on HCTZ. Her blood pressure is normal, no HCTZ will be continued while here. Will give potassium replacement. Follow BMP daily and will check her Mg. - Lab Results Fish Bones: 07/21/21 12:47 07/21/21 12:47 - Diagnostic Imaging Results Diagnostic Imaging Results: positive: Final report reviewed
[2021-07-21] MEDS: INSULIN ASPART 300 UNIT/3 ML PEN SUBQ SCH (21:52)
[2021-07-21] MEDS ORDERED: QUEtiapine 100 MG TABLET PO SCH (22:11)
[2021-07-21] MEDS ORDERED: ZOLPIDEM 5 MG TABLET PO PRN (22:12)
[2021-07-22] MEDS: TOPIRAMATE 100 MG TABLET PO SCH ×2 (00:11→08:25)
[2021-07-22] MEDS: SUCRALFATE 1 GM/10 ML UDC PO SCH ×3 (00:11→11:58)
[2021-07-22] MEDS: SODIUM CHLORIDE FLUSH 0.9% 10 ML SYRINGE IVP SCH ×2 (00:13→08:26)
--- NOTE | 2021-07-22 01:07 | Ultrasound Report ---
PROCEDURE: Carotid Doppler Limited INDICATIONS: Poss stroke TECHNIQUE: Color and pulse Doppler interrogation was performed of both carotid systems, with image documentation and velocity measurements. COMPARISON: Carotid ultrasound 08/16/2013. FINDINGS: Right side: Brachial blood pressure: 105/68 mm Hg. Common carotid artery peak systolic velocity: 73 cm/sec. Internal carotid artery peak systolic velocity: 61 cm/sec. Internal carotid artery end diastolic velocity: 18 cm/sec. External carotid artery peak systolic velocity: 81 cm/sec. ICA/CCA peak systolic ratio: 0.8 . Hernandez scale imaging description: There is mild noncalcified plaque in the carotid bulb. Percent internal carotid artery stenosis: Less than 50% . Vertebral artery: Flow direction is antegrade. Left side: Brachial blood pressure: 119/54 mm Hg. Common carotid artery peak systolic velocity: 74 cm/sec. Internal carotid artery peak systolic velocity: 67 cm/sec. Internal carotid artery end diastolic velocity: 19 cm/sec. External carotid artery peak systolic velocity: 68 cm/sec. ICA/CCA peak systolic ratio: 0.9 . Hernandez scale imaging description: There is mild noncalcified plaque in the carotid bulb. Percent internal carotid artery stenosis: Less than 50% . Vertebral artery: Flow direction is antegrade. IMPRESSION: 1. Mild scattered plaque with narrowing of less than 50% in the carotid bulbs. The estimate of stenosis included in the report of the imaging study was calculated using the NASCET method Reviewed by: Rehan Stanford MD on 07/22/2021 1:04 AM PDT Approved by: Rehan Stanford MD on 07/22/2021 1:04 AM PDT Station ID: [id number]
[2021-07-22 05:32] LABS: BASOPHILS # (AUTO) 0.1 10^3/uL (0.0-0.1); BASOPHILS % (AUTO) 0.9 %; EOSINOPHILS # (AUTO) 0.2 10^3/uL (0.0-0.7); EOSINOPHILS % (AUTO) 3.5 %; HGB - HEMOGLOBIN 11.9 g/dL (12.0-16.0); LYMPHOCYTES # (AUTO) 2.1 10^3/uL (1.5-3.5); LYMPHOCYTES % (AUTO) 36.3 %; MEAN CORPUSCULAR HEMOGLOBIN 31.2 pg (27.0-31.0); MEAN CORPUSCULAR VOLUME 91.9 fL (81.0-99.0); MEAN PLATELET VOLUME 10.6 fL (7.9-10.8); MONOCYTES # (AUTO) 0.5 10^3/uL (0.0-1.0); MONOCYTES % (AUTO) 7.9 %; NEUTROPHILS # (AUTO) 2.9 10^3/uL (1.5-6.6); NEUTROPHILS % (AUTO) 51.2 %; PLT - PLATELET COUNT 159 10^3/uL (130-450); RED BLOOD COUNT 3.81 10^6/uL (4.20-5.40); RED CELL DISTRIBUTION WIDTH 13.1 % (12.0-15.0); WHITE BLOOD COUNT 5.7 x10^3/uL (4.8-10.8)
[2021-07-22 06:04] LABS: BUN - BLOOD UREA NITROGEN 13 mg/dL (6-20); CALCIUM 8.5 mg/dL (8.5-10.3); CARBON DIOXIDE - CO2 26 mmol/L (21-32); CHLORIDE 104 mmol/L (101-111); CHOL/HDL RATIO 2.7 (<4.4); CHOLESTEROL 135 mg/dL; CREATININE 0.9 mg/dL (0.4-1.0); GFR - MDRD 63 (>89); GLUCOSE 95 mg/dL (70-100); HDL CHOLESTEROL 50 mg/dL; LDL CHOLESTEROL,CALCULATED 65 mg/dL; LDL/HDL RATIO 1.3 (<4.4); POTASSIUM 2.7 mmol/L (3.5-5.0); SODIUM 140 mmol/L (135-145); TRIGLYCERIDES 102 mg/dL; VLDL CHOLESTEROL 20 mg/dL
[2021-07-22] MEDS ORDERED: POTASSIUM CHLORIDE 20 MEQ TABLET PO ONE ×2 (08:00→13:00)
[2021-07-22] MEDS: INSULIN ASPART 300 UNIT/3 ML PEN SUBQ SCH ×2 (08:25→11:58)
[2021-07-22] MEDS: POTASSIUM CHLOR 10 MEQ/100 ML 10 MEQ/100 ML BAG IV SCH ×2 (08:26→10:19)
[2021-07-22] MEDS ORDERED: ASPIRIN EC 81 MG TABLET PO SCH (09:00)
[2021-07-22 10:33] LABS: ESTIMATED AVERAGE GLUCOSE 120 mg/dL (70-100); HEMOGLOBIN A1c% 5.8 % (4.27-6.07)
--- NOTE | 2021-07-22 11:56 | Discharge Plan ---
Discharge Plan Problem Reviewed?: Yes Disposition: Home, Self Care Condition: Fair Prescriptions: Potassium Chloride [K-Dur] 20 meq PO DAILY #30 tablet Diet: Regular Activity Restrictions: Activity as Tolerated Health Concerns: You were in Observation status to evaluate for a stroke. You were using the right arm intermittently, therefore it was not a stroke. The Echocardiogram did not show a clot or a shunt in your heart. The carotid arteries have less than 50% plaque buildup and the repeat CT scan of your head showed no stroke. It was probably a conversion reaction. Our labs show that you do not have diabetes (your A1c was 5.8). You DO NOT need to take metformin as it may cause dangerously low blood sugars. You do have a dangerously low potassium level. This is from taking the water pill which makes you lose potassium. You are now prescribed to take a potassium supplement once a day. The new prescription was electronically sent to your [facility] pharmacy in [place]. Plan of Treatment: Resume your usual medications, but do not take the Metformin. Care Goals: Improvement in symptoms and stabilization are the goals. Assessment: These instructions are being provided as a reminder. Additional Instructions or Follow Up instructions: If you have new or worsening symptoms, call your primary care provider for advice. No Smoking: If you smoke, Please STOP! Call for help.
--- NOTE | 2021-07-22 12:15 | CT Report ---
PROCEDURE: HEAD WO INDICATIONS: [address] advised by Neuro TECHNIQUE: Noncontrast 4.5 mm thick angled axial sections acquired from the foramen magnum to the vertex. For r adiation dose reduction, the following was used: automated exposure control, adjustment of mA and/or kV according to patient size. COMPARISON: CT head 07/21/2021. FINDINGS: Image quality: Excellent. CSF spaces: Basal cisterns are patent. No extra-axial fluid collections. Ventricles are normal in size and shape. Brain: No midline shift. No intracranial masses or hemorrhage. Hernandez-white matter interface is norm al. Skull and face: Calvarium and visualized facial bones are intact, without suspicious lesions. Sinuses: Visualized sinuses and mastoids are clear. IMPRESSION: 1. No acute intracranial process. Reviewed by: Marta Chiu MD on 07/22/2021 12:14 PM PDT Approved by: Marta Chiu MD on 07/22/2021 12:14 PM PDT Station ID: [id number]
--- NOTE | 2021-07-22 12:49 | DISCHARGE SUMMARY ---
Discharge Summary Admit Date: 07/21/21 Discharge Date: 07/22/21 Discharging Provider: Dr Minerva Arriaza Primary Care Provider: IRA Tirado Code Status: Attempt Resuscitation Condition at Discharge: Fair Discharge Disposition: 01 Home, Self Care - HPI History of Present Illness: This is a 65-year-old white female with a history of possible diabetes on Metformin, Hx of prior TIA which was right arm and leg weakness that resolved, migraines, bipolar disorder and possibly multiple sclerosis. She says she also has "conversion disorder" which gives her sudden "drop attacks". Because of this she stopped driving in 2003. She had gastric bypass surgery. Patient went to bed at 11 PM last night feeling her usual self and at 11 AM this morning, upon awakening, had right arm and leg weakness. EMS was called. Glucose at the scene was 79. Upon presentation to the ED her NIH stroke score was 9. She had a CT of the head which showed no acute findings. A telestroke consult was done with Dr. Mojica. The Neurologist advised to give her aspirin and Plavix loading. There was no imaging done to evaluate for large vessel occlusion and tPA was not recommended. In the ED, Nurses noticed that she was using her right arm and typing on her phone with her right fingers when she was not being observed. Neurologist recommended that a lacunar stroke be ruled out by undergoing a CT of the head at 24 hours. An MRI could not be done because the patient has wires from an old stimulator in her back that are still implanted, but the stimulator box has been removed. In the ED, the reported that the patient was having "pain in her chest with breathing". An repeat EKG was done and there were no changes from the first EKG. A chest x-ray had already been done and was within normal limits. No further chest imaging was done since she was not desaturating and respiratory rate was 9. Upon arriving to her hospital room, the [facility] Nurse noticed that the patient reacted to a painful IV in the R arm, by moving her entire right arm to a painful stimuli and stating that this must have been a "spasm" (she was getting a potassium iv Simone). I discussed CODE STATUS with this patient and she wants to be a Full Code. - HOSPITAL COURSE Hospital Course: (1) Stroke-like symptoms The patient's complaints of both motor and sensory abnormality of the right arm and leg would indicate a large distribution of neurologic damage. Nothing was seen acutely on CT. The Telestroke Neurologist recommended a follow-up CT in 24 hours which was done and showed no changes, and NO STROKE. Telemetry showed no A. fib. Echo with saline bubble study was normal with no cardiac source of embolus or shunt. Carotid Dopplers showed <50% atherosclerosis bilaterally. It was felt that she was malingering for secondary gain of attention and help (from the perhaps). (2) Conversion disorder The patient herself reported that she has Conversion disorder. We felt that she was malingering and that these were neurotic symptoms, since she was "caught" many times to be moving the right arm and fingers when nobody was watching. But she then did not cooperate with motor exam of the right hand, for example and scored a 0/5 on strength exam. It was felt that she was malingering for secondary gain of attention and help (from the perhaps). We continued all her usual psychiatric medications while here. (3) Hx of Diabetes mellitus type 2 Patient said she checks her morning blood sugar and reported her "morning gl ucose level without Metformin is 113-114 but on metformin it is 60-70". When asked if she has hypoglycemic symptoms like sweating or nervousness with glucose levels of 60-70 she denied those. We did not order her Metformin while here, and her morning A1c was 5.8, suggesting SHE DOES NOT HAVE DM. At discharge, she was told NOT to use the Metformin. (4) Hypokalemia Her Potassium was 2.7, likely from being on HCTZ. Will gave potassium replacement and ordered KCl 20 mEq daily at discharge. - ALLERGIES Allergies/Adverse Reactions: Allergies Allergy/AdvReac Type Severity Reaction Status Date / Time strawberry [[place]] Allergy Severe Rash Verified 07/21/21 12:39 sulfamethoxazole Allergy Mild Rash Verified 07/21/21 12:39 [From Septra] trimethoprim [From Septra] Allergy Mild Rash Verified 07/21/21 12:39 bacitracin Allergy Rash Verified 07/21/21 12:39 bee venom protein (honey bee) Allergy Respiratory Verified 07/21/21 12:39 butorphanol [From Stadol] Allergy Anaphylaxis Verified 07/21/21 12:39 hydromorphone [From Dilaudid] Allergy Rash Verified 07/21/21 12:39 meperidine [From Demerol] Allergy Rash Verified 07/21/21 12:39 orange Allergy Anaphylaxis Verified 07/21/21 12:39 vancomycin Allergy Rash Verified 07/21/21 12:39 codeine AdvReac Nausea Verified 07/21/21 12:39 morphine AdvReac Dizziness Verified 07/21/21 12:39 pregabalin [From Lyrica] AdvReac Headache Verified 07/21/21 12:39 solifenacin [From Vesicare] AdvReac Unknown Verified 07/21/21 12:39 sumatriptan [From Imitrex] AdvReac Headache Verified 07/21/21 12:39 vortioxetine AdvReac Headache Verified 07/21/21 12:39 [From Trintellix] - MEDICATIONS Home Medications: Ambulatory Orders Medication Instructions Recorded Confirmed Levothyroxine Sodium 125 mcg PO DAILY 06/06/12 05/08/20 Albuterol Sulf [Ventolin Hfa 2 puffs INH QID 04/16/16 05/08/20 Inhaler] Montelukast [Singulair] 10 mg PO QPM 04/16/16 05/08/20 Atorvastatin [Lipitor] 40 mg PO DAILY 03/12/17 05/08/20 Quetiapine Fumarate [Seroquel] 300 mg PO DAILY 03/12/17 05/08/20 Levocetirizine Dihydrochloride 5 mg ORAL DAILY 07/02/18 05/08/20 Albuterol Sulfate 2.5 mg IH PRN PRN 11/12/19 05/08/20 Desvenlafaxine [Desvenlafaxine ER] 100 mg PO DAILY 11/12/19 05/08/20 Mirabegron [Myrbetriq] 50 mg PO DAILY 11/12/19 05/08/20 Rizatriptan Benzoate [Rizatriptan] 10 mg PO PRN PRN 11/12/19 05/08/20 Topiramate 150 mg PO BID 11/12/19 05/08/20 tiZANidine [Zanaflex] 1 - 3 tab PO Q8H PRN 11/12/19 05/08/20 Omeprazole 40 mg PO DAILY 11/21/19 05/08/20 Erenumab-Aooe [Aimovig 140 mg INJ 05/09/20 Autoinjector] Gabapentin [Neurontin] 300 mg PO TID 05/09/20 05/09/20 Ketorolac Inj (30Mg) [Toradol Inj 30 mg INJ PRN 05/09/20 (30Mg)] Ketorolac [Toradol] 10 mg PO PRN 05/09/20 Nitrofurantoin Monohyd/M-Cryst 100 mg PO BID #10 cap 05/09/20 [Macrobid 100 mg Capsule] diazePAM [Valium] 5 mg PO TID PRN #15 tablet 05/09/20 methocarbamoL [Robaxin-750] 750 mg PO 05/09/20 Aspirin EC [Ecotrin] 81 mg PO DAILY tablet 07/22/21 Potassium Chloride [K-Dur] 20 meq PO DAILY #30 tablet 07/22/21 - PHYSICAL EXAM AT DISCHARGE General Appearance: positive: No acute distress, Alert Eyes Bilateral: positive: Normal inspection, EOMI ENT: positive: ENT inspection nml, No signs of dehydration, Other (Poor dentition) Neck: positive: Nml inspection, No JVD Respiratory: positive: No respiratory distress Cardiovascular: positive: Regular rate & rhythm, No murmur Abdomen: positive: No organomegaly, No distention Skin: positive: Warm, Dry Extremities: positive: Non-tender (Neuro exam was not reliable (due to malingering).), No pedal edema Neurologic/Psychiatric: positive: Oriented x3, Other (Motor and sens exams are not reliable as pt is malingering) - LABS Result Diagrams: 07/22/21 04:25 07/22/21 04:25 - DIAGNOSTIC IMAGING Diagnostic Imaging Results: Final report reviewed - TIME SPENT Time Spent in Discharge (Minutes): 30
[2021-07-22 14:15] VITALS: BP 98/64
== END 2021-07-22 14:25 | disposition home or self-care (01) ==
LOC: EDBD → ED 12:34 → MS2 15:02
PROVIDERS: ADMIT Internal Medicine; ATTEND Internal Medicine
DX: R53.1 Weakness (principal); F44.4 Conversion disorder with motor symptom or deficit; Z20.822 Contact with and (suspected) exposure to COVID-19; E87.6 Hypokalemia; Z86.39 Personal history of other endocrine, nutritional and metabolic disease; Z86.73 Personal history of transient ischemic attack (TIA), and cerebral infarction without residual deficits; F31.9 Bipolar disorder, unspecified; G43.909 Migraine, unspecified, not intractable, without status migrainosus; G47.30 Sleep apnea, unspecified; J45.909 Unspecified asthma, uncomplicated; K21.9 Gastro-esophageal reflux disease without esophagitis; R32 Unspecified urinary incontinence; F41.9 Anxiety disorder, unspecified; Z79.84 Long term (current) use of oral hypoglycemic drugs; T50.3X5A Adverse effect of electrolytic, caloric and water-balance agents, initial encounter; Z76.5 Malingerer [conscious simulation]
CPT/HCPCS: 36415; 70450; 71045; 80048; 80053; 80061; 81001; 82607; 83036; 83690; 83735; 84439; 84443; 85025; 85610; 87077; 87086; 87181; 87635; 93005; 93306; 93882; 97161; 97165; 99284; 99285; A9270; G0378; 81003; 83721

== ENCOUNTER 2021-08-11 10:19 | Outpatient (CLI) | payer MEDICARE, OTHER, MEDICAID ==
--- NOTE | 2021-08-12 08:29 | Mammography Report ---
BILATERAL DIGITAL SCREENING MAMMOGRAM 3D/2D: 08/11/2021 CLINICAL: Routine screening. Comparison is made to exams dated: 10/04/2019 mammogram, 11/30/2017 mammogram, 07/11/2016 mammogram, mammogram, 12/17/2012 mammogram, and 09/02/2011 mammogram - [facility]. Th ere are scattered fibroglandular elements in both breasts. No significant masses, calcifications, or other findings are seen in either breast. There has been no significant interval change. IMPRESSION: NEGATIVE There is no mammographic evidence of malignancy. A 1 year screening mammogram is recommended. Based on the Tyrer Cuzick model (a risk assessment model) the patients lifetime risk is 4.6% and her 10 year risk is 2.1%. According to the ACR, ACS, and NCCN guidelines, an annual breast MRI exam doc g with mammogram is recommended if the patients lifetime risk is 20% or greater. This exam was interpreted at Station ID: [id number]. NOTE: For mammograms, a report in lay terms will be sent to the patient. Approximately 15% of breast malignancies will not be visualized mammographically. In the management of a palpable breast mass, a negative mammogram must not discourage biopsy of a clinically suspicious lesion. Electronically Signed By: Los aguiar/claudette:08/11/2021 13:57:25 ACR BI-RADS Category 1: Negative 3341F PARENCHYMAL PATTERN: (A) - The breast(s) demonstrate(s) scattered fibroglandular densities. BI-RADS CATEGORY: (1) - 1 RECOMMENDATION: (ANNUAL) - Recommend routine annual screening mammography. [id number] 1 year screening LATERALITY: (B)
== END 2021-08-11 10:20 | disposition home or self-care (01) ==
LOC: DI.N 10:19
DX: Z12.31 Encounter for screening mammogram for malignant neoplasm of breast (principal)

== ENCOUNTER 2021-08-25 09:14 | Outpatient (CLI) | payer MEDICARE, OTHER, MEDICAID ==
--- NOTE | 2021-08-25 10:21 | XRAY Report ---
PROCEDURE: Ribs w/PA Chest RT INDICATIONS: R SIDED RIB PX TECHNIQUE: 3 views of the right ribs were acquired, along with a single view chest. COMPARISON: No FINDINGS: Surgical changes and devices: ACDF in the lower cervical spine.. Bones and chest wall: No fractures or dislocations. No suspicious bony lesions. Overlying soft tis sues appear unremarkable. Lungs and pleura: No pleural effusions or pneumothorax. Lungs appear clear. Mediastinum: Mediastinal contours appear normal. Heart size is normal. IMPRESSION: Normal AP view of the chest and right ribs. Reviewed by: Osmany Anderson on 08/25/2021 10:19 AM PDT Approved by: Osmany Anderson on 08/25/2021 10:19 AM PDT Station ID: [id number]
== END 2021-08-25 09:15 | disposition home or self-care (01) ==
LOC: DI.N 09:14
PROVIDERS: ATTEND Physician Assistant Medical
DX: R07.81 Pleurodynia (principal)